=== PATIENT | female | born 1935 | race Caucasian/White ===

== ENCOUNTER → 2019-08-11 11:07 | Outpatient (CLI) | payer MEDICARE, SELFPAY ==
--- NOTE | 2019-08-11 12:44 | PM.TREADMILL ---
Cardiac Stress Test Report Referral & Results Date Patient Seen: 08/11/19 Requesting provider: Maritza Camp Indication: Chest discomfort Rest ECG: After both written and verbal informed consent the patient had an IV started by the diagnostic imaging RN, and then was hooked up to the treadmill monitoring system. The Lexiscan material, and then the Cardiolite tracer, were administered sequentially. An additional 3 min was spent monitoring the patient while supine on the gurney. The patient had a normal response to all infused materials. Procedure Note: Please see perfusion imaging report for details regarding possible ischemia Please note: Actual ECG tracings can be found in the PACS system.
--- NOTE | 2019-08-13 07:56 | DI.NM.S_ITS ---
DATE OF SERVICE: 08/11/2019 PROCEDURE: Pharmacological perfusion study. INDICATIONS: Chest pain with underlying hypertension, hyperlipidemia, left bundle branch block. RADIOPHARMACEUTICAL: 25.1 mCi technetium-99m Myoview IV was injected at stress and 25.0 mCi technetium-99m Myoview IV was injected at rest. CARDIAC STRESS: The patient underwent pharmacological perfusion study under the supervision of an attending staff. She remained hemodynamically stable. Baseline rhythm was sinus with left bundle branch block. Stress EKG did not reveal any obvious inducible ischemic changes or significant arrhythmias. RAW DATA: There was breast shadow seen. GATED STUDY: Stress LV ejection fraction 83% and resting LV ejection fraction 76% without any obvious wall motion abnormalities. Resting end-diastolic volume 70 mL. TID ratio 1.03, which is within normal. Lung/heart ratio 0.26, which is within normal limits. MYOCARDIAL PERFUSION: Stress supine and resting supine images were compared to each other. Please note this patient does not have any prone images. Resting study revealed a small-sized mildly-decreased perfusion of the distal anterior wall; however, stress supine images revealed normal myocardial perfusion. CONCLUSION: I will call this study a normal myocardial perfusion study without any convincing ischemia infarction pattern. The patient has underlying left bundle branch block. Overall, LV function is preserved. This is a low-risk myocardial perfusion study. Bettie Patel - GRABIEL/emilee/sujatha doc#: [id number]/job#: [id number] dd: 08/12/2019 17:32:00 dt: 08/13/2019 07:46:00 DICTATING MD/COPIES TO: Philip Salguero MD COPIES MNE: TI
== END ==
PROVIDERS: Family Provider Family Medicine; PCP Family Medicine; Visit Provider Physician Assistant Medical
DX: R07.89 Other chest pain (principal); I44.7 Left bundle-branch block, unspecified; I10 Essential (primary) hypertension; E78.5 Hyperlipidemia, unspecified
CPT/HCPCS: 78452; 93016; 93017; 93018; A9502; J2785

== ENCOUNTER → 2019-11-21 10:23 | Outpatient (CLI) | payer MEDICARE, SELFPAY | PROVIDERS: Family Provider Family Medicine; PCP Family Medicine; Visit Provider Physician Assistant | DX: N39.0 Urinary tract infection, site not specified (principal) | CPT/HCPCS: 87086 ==

== ENCOUNTER → 2020-01-04 10:06 | Outpatient (CLI) | payer MEDICARE, SELFPAY ==
[2020-01-04 12:22] LABS: TSH w/ Reflex to FT4 9.74 uIU/mL (0.47-4.68)
[2020-01-04 13:02] LABS: Free T4, Direct Thyroxine 0.98 ng/dL (0.78-2.19)
== END ==
PROVIDERS: Family Provider Family Medicine; PCP Family Medicine; Referring Provider Registered Nurse; Visit Provider Registered Nurse
DX: E03.9 Hypothyroidism, unspecified (principal)
CPT/HCPCS: 36415; 84439; 84443

== ENCOUNTER → 2020-04-05 11:19 | Outpatient (CLI) | payer MEDICARE, SELFPAY ==
[2020-04-05 13:32] LABS: Free T3, Triiodothyronine Free 3.07 pg/mL (2.77-5.27); Free T4, Direct Thyroxine 1.43 ng/dL (0.78-2.19)
[2020-04-05 13:45] LABS: Thyroid Stimulating Hormone 8.18 uIU/mL (0.47-4.68)
== END ==
PROVIDERS: Family Provider Family Medicine; PCP Family Medicine; Referring Provider Family Medicine; Visit Provider Family Medicine
DX: E03.9 Hypothyroidism, unspecified (principal)
CPT/HCPCS: 36415; 84439; 84443; 84481

== ENCOUNTER → 2020-06-01 09:30 | Outpatient (CLI) | payer MEDICARE, SELFPAY ==
[2020-06-02 06:07] LABS: COVID19 Sendout Not Detected (Not Detect)
== END ==
PROVIDERS: Family Provider Family Medicine; PCP Family Medicine; Visit Provider Physician Assistant
DX: Z11.59 Encounter for screening for other viral diseases (principal)
CPT/HCPCS: 87635

== ENCOUNTER → 2020-06-13 10:48 | Outpatient (CLI) | payer MEDICARE, SELFPAY ==
[2020-06-16 23:35] LABS: Almond IgE <0.10 kU/L (Class 0); Cashew Nut IgE <0.10 kU/L (Class 0); Codfish Allergy IgE < 0.10 kU/L (Class 0); Egg White IgE <0.10 kU/L (Class 0); Hazelnut IgE <0.10 kU/L (Class 0); Milk IgE <0.10 kU/L (Class 0); Peanut IgE <0.10 kU/L (Class 0); Salmon Allergy IgE < 0.10 kU/L (Class 0); Scallop Allergy IgE < 0.10 kU/L (Class 0); Sesame seed Allergy IgE < 0.10 kU/L (Class 0); Shrimp IgE <0.10 kU/L (Class 0); Soybean IgE <0.10 kU/L (Class 0); Tuna Allergy IgE < 0.10 kU/L (Class 0); Walnut IgE <0.10 kU/L (Class 0); Wheat Allergy IgE < 0.10 kU/L (Class 0)
== END ==
PROVIDERS: Family Provider Family Medicine; PCP Family Medicine; Referring Provider Family Medicine; Visit Provider Family Medicine
DX: G89.29 Other chronic pain (principal); L29.9 Pruritus, unspecified; M54.5 Low back pain
CPT/HCPCS: 36415; 86003

== ENCOUNTER 2020-06-20 12:13 | Emergency (ER) | payer MEDICARE, SELFPAY ==
[2020-06-20] VITALS (9 sets, daily range): BP systolic 161–203; BP diastolic 78–88; PULSE 60–67; RESP 8–33; TEMP 36.6; O2SAT 95–97; BMI 24.7
--- NOTE | 2020-06-20 12:24 | PC.NURSE ---
pt states my legs feel like stumps having numbness bilaterally in lower distal extremities. 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 AAOx3, on cardiac monitoring HR 60's. states she had a dream she was having CP on 06/14 and woke up with hypertensive with CP but did not call her PCP. has been taking her BP regularly and its been elevated. 203/88 in ED today, lungs clear. RT in room for EKG at this time. Anxious.
--- NOTE | 2020-06-20 12:59 | DI.RAD.S_ITS ---
PROCEDURE: XR CHEST 1V INDICATIONS: chest pain TECHNIQUE: One view of the chest was acquired. COMPARISON: None. FINDINGS: Surgical changes and devices: Lower thoracic spine vertebroplasty cement is seen. Lungs and pleura: Lungs are clear. No pleural effusions or pneumothorax. Mediastinum: The cardiac contours are within normal limits. The aorta demonstrates calcification and tortuosity. Bones and chest wall: Age-appropriate bony degenerative changes are seen. No suspicious bony lesions. Overlying soft tissues appear unremarkable. IMPRESSION: No acute cardiopulmonary process is seen. Dictated by: Dipak Rodriguez M.D. on 06/20/2020 at 12:32 Approved by: Dipak Rodriguez M.D. on 06/20/2020 at 12:33
--- NOTE | 2020-06-20 13:08 | ED_ITS ---
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 She states that she woke up with chest pain on 06/14/2020 after taking it now. She had injury that she had chest pain and then woke up with chest pain. She states it lasted for about 15 minutes, until she was able to ?drink some port.She states that drinking [place] is an old 's tail that she uses sometimes when she has chest pain. She states that she has had chest pain before. Then after drinking the poor she got up to go to the bathroom and felt very rigid and like her legs were ?like stumps.She initially states that she has no cardiac history, then admits to ?leaky valves? as well as hypertension. She states that the chest pain was substernal, felt like squeezing. She also takes supplements for potassium as well as magnesium. She states she has also had leg cramps, chart review illustrate the history of leg cramps for which she takes potassium. She describes ?tree trunk legs? as improving since this incident almost a week ago. She has not followed up with her primary care provider since. She denies any falls or trauma. She denies any current chest pain, has not had any since the , denies any shortness of breath fever nausea vomiting or diarrhea. She d oes admit to issues with chronic pain, states she has very severe chronic pain for which she sees her primary care provider. Related Data Home Medications Medication Instructions Recorded Confirmed True osteo PO 11/21/19 06/13/20 amlodipine 5 mg tablet 5 mg PO BID tab 11/21/19 06/13/20 atenolol 25 mg tablet 25 mg PO DAILY 11/21/19 06/13/20 phenazopyridine PO 11/21/19 06/13/20 true vision PO 11/21/19 06/13/20 aspirin 81 mg tablet,delayed 81 mg PO DAILY 12/15/19 06/13/20 release hydroxyzine HCl 25 mg tablet 25 mg PO BEDTIME 12/15/19 06/13/20 Prevegen PO 01/13/20 06/13/20 cholecalciferol (vitamin D3) 50 50 mcg PO DAILY 01/13/20 06/13/20 mcg (2,000 unit) capsule coenzyme Q10 200 mg capsule 200 mg PO BID cap 01/13/20 06/13/20 magnesium PO 01/13/20 06/13/20 vitamins A,C,[id number]-knwe-vjajnm 7,160 2 tab PO BID 01/13/20 06/13/20 unit-113 mg-100 unit tablet Previous Rx's Medication Instructions Recorded levothyroxine 100 mcg tablet 100 mcg PO DAILY #90 tab 04/09/20 clobetasol 0.05 % topical gel 1 applictn TOP DAILY #60 gram 06/13/20 potassium chloride 10 mEq 10 meq PO DAILY #90 tab 06/13/20 tablet,extended release Allergies Allergy/AdvReac Type Severity Reaction Status Date / Time latex [LATEX] Allergy Mild WELTS Verified 06/13/20 09:32 morphine [MORPHINE] Allergy Mild WELTS Verified 06/13/20 09:32 Sulfa (Sulfonamide Allergy Mild UNK Verified 06/13/20 09:32 Antibiotics) [SULFA (SULFONAMIDE ANTIBIOTICS)] alendronate sodium Allergy Unknown Verified 06/13/20 09:32 [From FOSAMAX] PCN Allergy Mild HIVES Uncoded 06/13/20 09:32 Review of Systems <ALMA Reza- - Last Filed: 06/20/20 15:59> Review of Systems Narrative: GENERAL: Denies chills, fatigue, malaise, fever, sweats. HEENT: Denies sinus pain, ear pain, sore throat, difficulty swallowing, dizzi ness. RESPIRATORY: Denies dyspnea, cough, wheezing, hemoptysis, sputum. CARDIOVASCULAR: See HPI GASTROINTESTINAL: Denies nausea, vomiting, abdominal pain, diarrhea, constipation, melena. : Denies dysuria, frequency, incontinence, hematuria, urinary retention. MUSCULOSKELETAL: See HPI SKIN: Denies rash, skin lesions, or other NEUROLOGIC: Denies weakness, headache, numbness, change in speech, confusion, seizures, incoordination. PSYCHIATRIC: No concerning psychosocial issues. 12 point review of systems is negative except for those stated above Patient History <HERIBERTO Reza - Last Filed: 06/20/20 15:59> Medical History Anxiety (Chronic) Aortic regurgitation (Chronic) Bilateral leg cramps (Acute) Cervical somatic dysfunction (Acute) Chicken pox (Resolved) Chronic back pain (Chronic) Colon polyps (Inactive ~1994) Cranial somatic dysfunction (Acute) Fractures (Resolved) Generalized pruritus (Acute) Hearing loss (Chronic) History of urinary incontinence (Chronic ~2015) Hypothyroidism (Chronic ~1982) Insomnia (Acute) Kyphosis (Chronic) Left elbow pain (Acute) Leg cramps (Acute) Low back pain (Acute) Macular degeneration (Chronic ~2000) Measles (Resolved) Mumps (Resolved) Osteoporosis (Chronic) Pelvic somatic dysfunction (Acute) Polio (Resolved ~1945) Pulmonary embolism (Chronic ~2004) Rib pain on left side (Acute) Rib pain on left side (Acute) Scoliosis (Resolved) Segmental and somatic dysfunction of abdomen and other regions (Acute) Segmental and somatic dysfunction of lumbar region (Acute) Segmental and somatic dysfunction of rib cage (Acute) Segmental and somatic dysfunction of sacral region (Acute) Segmental and somatic dysfunction of thoracic region (Acute) Stiff neck (Acute) Transient ischemic attack (Inactive ~1997) Upper extremity somatic dysfunction (Acute) UTI (urinary tract infection) (Acute) Vitiligo (Chronic ~1975) Surgical History Anesthesia (Resolved) History of bladder suspension procedure (Resolved ~1998) History of cataract removal with insertion of prosthetic lens (Resolved ~2014) History of elbow surgery (Resolved ~08/2015) History of hip replacement (Resolved ~2004) History of kyphoplasty (Resolved ~2002) History of surgery on right wrist (Resolved ~10/14/19) Family History Father Suicide Mental health problem Mother Pancreatitis Brother No problems noted. Brother No problems noted. Sister Mental health problem Grandmother Senility Social History Smoking Status: Never smoker Smoking Status: Never smoker alcohol intake frequency: 0-2 drinks per day Substance Use Type: does not use Exam <HERIBERTO Reza - Last Filed: 06/20/20 15:59> Narrative Exam Narrative: GENERAL: Elderly female lying on stretcher in no acute distress HEAD: Atraumatic. Normocephalic. No temporal or scalp tenderness. EYES: Pupils equal round and reactive. Extraocular motions intact. No scleral icterus. No injection or drainage. ENT: Nose without bleeding, purulent drainage or septal hematoma. Throat without erythema, tonsillar hypertrophy or exudate. Uvula midline. Airway patent. NECK: Trachea midline. No JVD or lymphadenopathy. Supple, nontender, no meningeal signs. CARDIOVASCULAR: Regular rate and rhythm RESPIRATORY: Clear to auscultation. Breath sounds equal bilaterally. No wheezes, rales, or rhonchi. No cough. No increased respiratory effort. No accessory muscle use. Speaking full sentences. GASTROINTESTINAL: Abdomen soft, non-tender, nondistended. No hepato-s plenomegaly, or palpable masses. No guarding. EXTREMITIES: No clubbing, cyanosis, or edema. No joint tenderness, effusion, or edema noted. Sensation is intact bilateral lower extremities, patient able to [employer] accurately identify when and where touched 12 times. Bilateral pedal pulses intact. BACK: Nontender without deformity or crepitance. No flank tenderness. NEURO: AOx3. SKIN: No rash or erythema on visible skin Initial Vital Signs Initial Vital Signs: Vital Signs Temperature 97.8 F 06/20/20 12:15 Pulse Rate 60 06/20/20 12:15 Respiratory Rate 19 06/20/20 12:15 Blood Pressure 203/88 H 06/20/20 12:15 Pulse Oximetry 97 06/20/20 12:15 <Madeline Morel DO - Last Filed: 06/21/20 10:23> Initial Vital Signs Initial Vital Signs: Vital Signs Temperature 97.8 F 06/20/20 12:15 Pulse Rate 60 06/20/20 12:15 Respiratory Rate 19 06/20/20 12:15 Blood Pressure 203/88 H 06/20/20 12:15 Pulse Oximetry 97 06/20/20 12:15 Course <Chrissy Rai, GLOBAL MANAGER-BC - Last Filed: 06/20/20 15:59> Orders Ordered: ED Orders 06/20/20 12:59 XR chest 1V Stat 06/20/20 13:25 Complete Blood Count AUTO DIFF Stat Comprehensive Metabolic Panel Stat Lipase Stat Magnesium Stat NT-proBNP (BNP-Adult 18+) Stat Partial Thromboplastin Time Stat Prothrombin Time INR Stat Troponin & CK Cardiac Panel Stat Vital Signs Vital signs: Vital Signs - 8 hr 06/20/20 12:15 06/20/20 12:28 06/20/20 12:30 Temperature 97.8 F Pulse Rate 60 62 61 Respiratory Rate 19 33 H 30 H Blood Pressure 203/88 H Pulse Oximetry 97 97 96 06/20/20 13:00 06/20/20 13:30 06/20/20 14:00 Temperature Pulse Rate 61 62 62 Respiratory Rate 22 14 8 L Blood Pressure Pulse Oximetry 96 96 95 06/20/20 14:05 06/20/20 14:30 06/20/20 14:31 Temperature Pulse Rate 62 67 65 Respiratory Rate 16 25 H 25 H Blood Pressure 183/84 H 161/78 H Pulse Oximetry 97 97 97 <Madeline Morel, - Last Filed: 06/21/20 10:23> Orders Ordered: ED Orders 06/20/20 12:59 XR chest 1V Stat 06/20/20 13:25 Complete Blood Count AUTO DIFF Stat Comprehensive Metabolic Panel Stat Lipase Stat Magnesium Stat NT-proBNP (BNP-Adult 18+) Stat Partial Thromboplastin Time Stat Prothrombin Time INR Stat Troponin & CK Cardiac Panel Stat Vital Signs Vital signs: Vital Signs - 8 hr 06/20/20 12:15 06/20/20 12:28 06/20/20 12:30 Temperature 97.8 F Pulse Rate 60 62 61 Respiratory Rate 19 33 H 30 H Blood Pressure 203/88 H Pulse Oximetry 97 97 96 06/20/20 13:00 06/20/20 13:30 06/20/20 14:00 Temperature Pulse Rate 61 62 62 Respiratory Rate 22 14 8 L Blood Pressure Pulse Oximetry 96 96 95 06/20/20 14:05 06/20/20 14:30 06/20/20 14:31 Temperature Pulse Rate 62 67 65 Respiratory Rate 16 25 H 25 H Blood Pressure 183/84 H 161/78 H Pulse Oximetry 97 97 97 MDM - Extremity (Nontraumatic) <Chrissy Rai, GLOBAL MANAGER-BC - Last Filed: 06/20/20 15:59> Lab Data Result diagrams: 06/20/20 13:25 06/20/20 13:25 Labs: Lab Results 06/20/20 06/20/20 06/20/20 Range/Units 13:25 13:25 13:25 WBC 7.7 (4.5-11.0) X10^3/uL RBC 4.56 (4.0-5.2) X10^6/uL Hgb 14.8 (12.0-16.0) g/dL Hct 43.2 (36-46) % MCV 94.7 (80-100) fL MCH 32.4 (26-34) PG MCHC 34.2 (30-36) % RDW 13.7 (11.6-14.8) % Plt Count 172 (150-400) X10^3/uL Neut % (Auto) 57.6 (50-75) % Lymph % (Auto) 31.3 (25-40) % [place] % (Auto) 7.4 (3-14) % Eos % (Auto) 2.8 (2-4) % Baso % (Auto) 0.9 (0-2) % Neut # (Auto) 4400 (9456-5076) /uL Lymph # (Auto) 2400 (5375-3384) /uL [place] # (Auto) 600 (0-900) /uL Eos # (Auto) 200 (0-450) /uL Baso # (Auto) 100 (0-100) /uL PT 11.5 (10.1-12.7) SECONDS INR 1.0 (0.9-1.3) APTT 32 (26.4-36.2) SECONDS Sodium 140 (137-145) mmol/L Potassium 4.0 (3.4-5.1) mmol/L Chloride 105 (98-107) mmol/L Carbon Dioxide 30 (22-32) mmol/L BUN 19 H (7-17) mg/dL Creatinine 0.72 (0.52-1.04) mg/dL Estimated GFR > 60.0 (>60) mL/min BUN/Creatinine Ratio 26.4 H (6-22) Glucose 94 (80-110) mg/dL Calcium 11.1 H (8.4-10.2) mg/dL Magnesium 2.2 (1.6-2.3) mg/dL Total Bilirubin 0.5 (0.2-1.3) mg/dL AST 38 H (14-36) IU/L ALT 33 (<35) IU/L Alkaline Phosphatase 91 (38-126) U/L Total Creatine Kinase < 20 L (30-135) U/L CK-MB (CK-2) TNP CK-MB (CK-2) Rel Index TNP Troponin I < 0.012 (0.01-0.034) ng/mL NT-Pro-B Natriuret Pep 300 (<450) pg/mL Total Protein 7.8 (6.3-8.2) g/dL Albumin 4.5 (3.5-5.0) g/dL Globulin 3.3 (1.7-4.1) g/dL Albumin/Globulin Ratio 1.4 (1.0-2.8) Lipase 121 (23-300) U/L Imaging Data Chest x-ray: Radiologist's Impression: [address] [place] [address] XRay Report Signed Patient: Bettie Patel BMR#: [id number] : 5Acct:[id number] Age/Sex: 84 / FDate of Service: 06/20/20 Loc: ED Accession Number: [id number] Procedure: XR chest 1V Ordering Provider: Chrissy Rai [facility]- PROCEDURE: XR CHEST 1V INDICATIONS: chest pain TECHNIQUE: One view of the chest was acquired. COMPARISON: None. FINDINGS: Surgical changes and devices: Lower thoracic spine vertebroplasty cement is seen. Lungs and pleura: Lungs are clear. No pleural effusions or pneumothorax. Mediastinum: The cardiac contours are within normal limits. The aorta demonstrates calcification and tortuosity. Bones and chest wall: Age-appropriate bony degenerative changes are seen. No suspicious bony lesions. Overlying soft tissues appear unremarkable. IMPRESSION: No acute cardiopulmonary process is seen. Dictated by: Dipak Rodriguez M.D. on 06/20/2020 at 12:32 Approved by: Dipak Rodriguez M.D. on 06/20/2020 at 12:33 ECG Data Attestation EKG: I personally reviewed and interpreted this ECG as follows: Interpretation: Sinus rhythm. Ventricular rate 62. P.r. interval 178. QRS 144. No ectopy noted. viewed by Dr Morel MDM Narrative Medical decision making narrative: The patient is an 84-year-old female who pre sents with a chief complaint of her legs feeling like stumps for the past week as well as an episode of chest pain a week ago. Her troponin is negative, checks rib x-ray with no acute findings, lab work and electrolytes grossly within normal limits other than a slightly high calcium. The patient also brought up increased skin wrinkling for the past 6 months on discharge and I encouraged her to use Eucerin or Aquaphor cream to help keep her skin hydrated. She is drinking a lot of ice tea, states that she is not drinking lot of water. I did not do a 2nd troponin on this patient as she has had chest pain for 1 episode of 15 minutes a week ago. She does admit to feeling better throughout her stay in the emergency department, and I encouraged to follow up with primary care provider in the next 48-72 hours. She describes numbness in bilateral lower limbs, but is very clearly not numb on exam. I suspect that this is her post-polio syndrome, and wonder if port drinking is having an impact on her. I did discuss that if she has chest pain, she should not wait a week to be seen, and come back to emergency department for any acute concerns such as chest pain, shortness of breath etcetera. Patient has no questions or concerns upon discharge and states understanding return precautions as well as follow-up care. <Madeline Morel, DO - Last Filed: 06/21/20 10:23> Lab Data Labs: Lab Results 06/20/20 06/20/20 06/20/20 Range/Units 13:25 13:25 13:25 WBC 7.7 (4.5-11.0) X10^3/uL RBC 4.56 (4.0-5.2) X10^6/uL Hgb 14.8 (12.0-16.0) g/dL Hct 43.2 (36-46) % MCV 94.7 (80-100) fL MCH 32.4 (26-34) PG MCHC 34.2 (30-36) % RDW 13.7 (11.6-14.8) % Plt Count 172 (150-400) X10^3/uL Neut % (Auto) 57.6 (50-75) % Lymph % (Auto) 31.3 (25-40) % [place] % (Auto) 7.4 (3-14) % Eos % (Auto) 2.8 (2-4) % Baso % (Auto) 0.9 (0-2) % Neut # (Auto) 4400 (1100-1359) /uL Lymph # (Auto) 2400 (0447-4538) /uL [place] # (Auto) 600 (0-900) /uL Eos # (Auto) 200 (0-450) /uL Baso # (Auto) 100 (0-100) /uL PT 11.5 (10.1-12.7) SECONDS INR 1.0 (0.9-1.3) APTT 32 (26.4-36.2) SECONDS Sodium 140 (137-145) mmol/L Potassium 4.0 (3.4-5.1) mmol/L Chloride 105 (98-107) mmol/L Carbon Dioxide 30 (22-32) mmol/L BUN 19 H (7-17) mg/dL Creatinine 0.72 (0.52-1.04) mg/dL Estimated GFR > 60.0 (>60) mL/min BUN/Creatinine Ratio 26.4 H (6-22) Glucose 94 (80-110) mg/dL Calcium 11.1 H (8.4-10.2) mg/dL Magnesium 2.2 (1.6-2.3) mg/dL Total Bilirubin 0.5 (0.2-1.3) mg/dL AST 38 H (14-36) IU/L ALT 33 (<35) IU/L Alkaline Phosphatase 91 (38-126) U/L Total Creatine Kinase < 20 L (30-135) U/L CK-MB (CK-2) TNP CK-MB (CK-2) Rel Index TNP Troponin I < 0.012 (0.01-0.034) ng/mL NT-Pro-B Natriuret Pep 300 (<450) pg/mL Total Protein 7.8 (6.3-8.2) g/dL Albumin 4.5 (3.5-5.0) g/dL Globulin 3.3 (1.7-4.1) g/dL Albumin/Globulin Ratio 1.4 (1.0-2.8) Lipase 121 (23-300) U/L Discharge Plan Departure Patient Disposition: Home Clinical Impression: Chest pain Qualifiers: Chest pain type: unspecified Qualified Code(s): R07.9 - Chest pain, unspecified Chronic leg pain Qualifiers: Laterality: bilateral Qualified Code(s): M79.604 - Pain in right leg Discharge Date/Time: 06/20/20 15:04 Instructions: DI for Atypical Chest Pain, DI for Chest Pain, DI for Numbness /Tingling Activity Restrictions/Additional Instructions: Thank you for trusting us with your care today. As discussed, your labs and evaluation came back very well. Your sodium, potassium, and magnesium came back well. Your calcium came back slightly high, this could be a sign of dehydration. Please focus on drinking more water than iced tea and staying hydrated. I would like you to follow-up with primary care provider in the next 48-72 hours. In the meantime please come back to the emergency department for any acute concerns such as concern of heart attack or stroke, Prescriptions: No Action amlodipine 5 mg tablet 5 mg PO BID RF: 0 atenolol 25 mg tablet 25 mg PO DAILY RF: 0 phenazopyridine PO RF: 0 True osteo PO RF: 0 true vision PO RF: 0 coenzyme Q10 [Co Q-10] 200 mg capsule 200 mg PO BID RF: 0 levothyroxine 100 mcg tablet 100 mcg PO DAILY Qty: 90 RF: 1 aspirin [Adult Aspirin Regimen] 81 mg tablet,delayed release (DR/EC) 81 mg PO DAILY RF: 0 hydroxyzine HCl 25 mg tablet 25 mg PO BEDTIME RF: 0 PreserVision AREDS [id number] tablet 2 tab PO BID RF: 0 Prevegen PO RF: 0 cholecalciferol (vitamin D3) 50 mcg (2,000 unit) capsule 50 mcg PO DAILY RF: 0 magnesium PO RF: 0 clobetasol 0.05 % gel 1 applictn TOP DAILY Qty: 60 RF: 2 potassium chloride 10 mEq tablet extended release 10 meq PO DAILY Qty: 90 RF: 3 Referrals: Van Christensen DO [Primary Care Provider] - <Madeline Morel DO - Last Filed: 06/21/20 10:23> Cosign ED Attending Cosignature Attestation: I was immediately available in the department for consultation. Documentation has been reviewed. I agree with assessment and plan.
[2020-06-20 13:34] LABS: Add Manual Diff / Slide Review NO; Basophils Absolute Auto 100 /uL (0-100); Basophils Percent Auto 0.9 % (0-2); Eosinophils Absolute Auto 200 /uL (0-450); Eosinophils Percent Auto 2.8 % (2-4); Hematocrit 43.2 % (36-46); Hemoglobin 14.8 g/dL (12.0-16.0); Lymphocytes Absolute Auto 2400 /uL (1100-4500); Lymphocytes Percent Auto 31.3 % (25-40); Mean Corpuscular HGB Conc 34.2 % (30-36); Mean Corpuscular Hemoglobin 32.4 PG (26-34); Mean Corpuscular Volume 94.7 fL (80-100); Monocytes Absolute Auto 600 /uL (0-900); Monocytes Percent Auto 7.4 % (3-14); Neutrophils Absolute Auto 4400 /uL (1500-7000); Neutrophils Percent Auto 57.6 % (50-75); Platelet Count 172 X10^3/uL (150-400); Red Blood Cell Count 4.56 X10^6/uL (4.0-5.2); Red Cell Distribution Width 13.7 % (11.6-14.8); White Blood Cell Count 7.7 X10^3/uL (4.5-11.0)
[2020-06-20 13:42] LABS: Prothrombin Time 11.5 SECONDS (10.1-12.7)
[2020-06-20 13:44] LABS: PTT Partial Thromboplastin Tim 32 SECONDS (26.4-36.2)
[2020-06-20 13:45] LABS: Alanine Aminotransferase 33 IU/L (<35); Albumin 4.5 g/dL (3.5-5.0); Albumin Globulin Ratio 1.4 (1.0-2.8); Alkaline Phosphatase 91 U/L (38-126); Aspartate Aminotransferase 38 IU/L (14-36); BUN Creatinine Ratio 26.4 (6-22); Bilirubin Total 0.5 mg/dL (0.2-1.3); Blood Urea Nitrogen 19 mg/dL (7-17); Calcium 11.1 mg/dL (8.4-10.2); Carbon Dioxide 30 mmol/L (22-32); Chloride 105 mmol/L (98-107); Creatine Kinase < 20 U/L (30-135); Estimated Glomerular Filt Rate > 60.0 mL/min (>60); Globulin 3.3 g/dL (1.7-4.1); Glucose 94 mg/dL (80-110); HEMOLYSIS < 15 (0-50); Lipase 121 U/L (23-300); Magnesium 2.2 mg/dL (1.6-2.3); Sodium 140 mmol/L (137-145); Total Protein 7.8 g/dL (6.3-8.2)
[2020-06-20 13:57] LABS: NT-proBNP (BNP-Adult 18+) 300 pg/mL (<450); Troponin I < 0.012 ng/mL (0.01-0.034)
== END 2020-06-20 15:04 | disposition home or self-care (01) ==
PROVIDERS: Emergency Provider Nurse Practitioner Family; Family Provider Family Medicine; PCP Family Medicine
DX: R07.9 Chest pain, unspecified (principal); M79.604 Pain in right leg; I10 Essential (primary) hypertension
CPT/HCPCS: 36415; 71045; 80053; 82550; 83690; 83735; 83880; 84484; 85025; 85610; 85730; 93005; 93041; 99284

== ENCOUNTER → 2020-07-11 09:46 | Outpatient (CLI) | payer MEDICARE, SELFPAY ==
--- NOTE | 2020-07-11 09:49 | DI.MRI.S_ITS ---
PROCEDURE: MR LUMBAR SPINE WO CON INDICATIONS: worsening sciatica/radiculopathy TECHNIQUE: Noncontrast sagittal T1 spin echo and T2 fast echo, sagittal STIR, axial T1 and T2 fast spin echo through the lumbar spine. In cases with scoliosis, additional coronal T2 fast spin echo may be performed. COMPARISON: [facility], MR, L-SPINE WITHOUT CONTRAST, 01/28/2016, 10:01. [facility] Outside Film, MR, MR LUMBAR SPINE WITHOUT CONTRAST, 12/02/2018, 10:52 (Images only, no report. Also, no axial images from the prior outside study are available for review at the time of this dictation.) FINDINGS: Image quality: Excellent. Alignment and Curvature: There is minimal retrolisthesis seen at L1-L2 and L3-L4. Bone Marrow: Marrow is of normal overall signal. No acute vertebral body compression fractures. A prominent anterior wedge deformity is seen at the T11 level, with 80-90% loss of height anteriorly. There is mild posterior displacement of fracture fragments of 3 mm. There is approximately 50% loss of height centrally at the L3 level. 3 mm posterior displacement of fracture fragments can be seen. These fractures are not significantly changed compared to the outside prior MRI examination. Spinal Cord: Conus medullaris terminates at the L1 level. Visualized cord demonstrates normal signal and size. Paraspinous Soft Tissues: No paravertebral masses. An apparent moderate hiatal hernia can be seen. T10-T11: Mild loss of disc height is seen. Loss of disc signal is seen. Mild to moderate disc bulge is seen. Moderate bilateral neural foraminal narrowing is seen. Moderate central canal narrowing is seen. There is associated mass effect upon the ventral spinal cord. T11-T12: Kvxl-hk-heyvhmlb loss of disc height and disc signal can be seen. Mild generalized disc bulge is seen. No significant neural foraminal or central canal narrowing can be seen. T12-L1: Wxje-bq-ziipvjbi loss of disc height and disc signal can be seen. Mild to moderate disc bulge is seen, with a mild central disc protrusion. No significant neural foraminal narrowing is seen. Mild central canal narrowing is seen. L1-L2: The disc height is well-preserved. Loss of disc signal is seen at this level. Moderate loss of disc height is seen. Loss of disc signal is seen. Mild to moderate facet hypertrophy is seen. Associated hypertrophy of the ligamentum flavum can be seen. There is at least moderate left-sided and moderate to severe right-sided neural foraminal narrowing seen. At least moderate central canal narrowing is seen. L2-L3: The disc height is well-preserved. Loss of disc signal is seen at this level. Mild to moderate disc bulge is seen. Mild facet joint hypertrophy is seen. Associated hypertrophy of the ligamentum flavum can be seen. There is hivt-xg-kyqehquc right-sided and mild left-sided neural foraminal narrowing seen. Moderate central canal narrowing is seen. L3-L4: The disc height is well-preserved. Loss of disc signal is seen at this level. Mild to moderate disc bulge is seen. Moderate facet joint hypertrophy is seen. Associated hypertrophy of the ligamentum flavum can be seen. There is moderate right-sided and dvnk-qv-anegdfnp left-sided neural foraminal narrowing seen. Moderate central canal narrowing is seen. L4-L5: Moderate loss of disc height is seen. Loss of disc signal is seen. Mild disc bulge is seen, with a mild central disc protrusion. Mild to moderate facet hypertrophy is seen. There is mild right-sided and no significant left-sided neural foraminal narrowing seen. Minimal central canal narrowing is seen. L5-S1: The disc height is relatively well preserved. Loss of disc signal can be seen. Mild generalized disc bulge is seen. Moderate facet joint hypertrophy is seen. No neural foraminal narrowing is seen. No central canal narrowing is seen. 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 IMPRESSION: Stable T11 and L3 compression deformities. Multiple levels of degenerative change are seen, which are believed to be similar to the prior outside MRI. 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 on 07/11/2020 at 14:11 Approved by: Dipak Rodriguez M.D. on 07/11/2020 at 14:20
== END ==
PROVIDERS: Family Provider Family Medicine; PCP Family Medicine; Referring Provider Family Medicine; Visit Provider Family Medicine
DX: M47.26 Other spondylosis with radiculopathy, lumbar region (principal)
CPT/HCPCS: 72148

== ENCOUNTER 2020-10-19 09:54 | Emergency (ER) | payer MEDICARE, SELFPAY ==
[2020-10-19] VITALS (9 sets, daily range): BP systolic 152–168; BP diastolic 66–74; PULSE 63–71; RESP 19–28; TEMP 35.7; O2SAT 94–100
--- NOTE | 2020-10-19 10:01 | DI.RAD.S_ITS ---
PROCEDURE: XR ACUTE ABDOMEN SERIES INDICATIONS: severe upper chest and back pain TECHNIQUE: One view chest and two views of the abdomen were acquired. COMPARISON: None. FINDINGS: Surgical changes and devices: None. Chest: Lungs are clear. Heart size is normal. No pleural effusions. No pneumoperitoneum. Abdomen: Bowel gas pattern is nonobstructive. Scattered material noted predominantly in the region of the descending colon and rectum. No suspicious calcifications. Visualized solid organ contours appear normal. Bones: No suspicious bony lesions. Status post bilateral total hip arthroplasties. Status post left elbow arthroplasty. Findings compatible with previous vertebroplasty of the lower thoracic spine. IMPRESSION: 1. Nonobstructive bowel gas pattern. Moderate fecal material noted predominantly in the region of the descending colon and rectum. 2. No acute cardiopulmonary abnormalities. Dictated by: Dru Chase M.D. on 10/19/2020 at 10:30 Approved by: Dru Chase M.D. on 10/19/2020 at 10:33
--- NOTE | 2020-10-19 10:02 | ED.ABDPAIN ---
HPI - Abdominal Pain General Chief Complaint: Abdominal Pain Stated Complaint: abd pain Time Seen by Provider: 10/19/20 09:55 Source: patient Mode of arrival: Ambulatory History of Present Illness HPI narrative: 84-year-old nonsmoker with history of hypertension and pulmonary embolism as well as aortic regurgitation presents with a chief complaint of 3 days of gradually worsening upper back and upper abdominal and chest pain. She states that it wraps around her chest and is significantly worsened by any movement and improves with rest. She denies any exertional component and states her appetite is decreased but does not seem to affect her discomfort when she eats or drinks. She has been nauseated for 3 weeks but denies any vomiting. She denies any change in her bowel habits such as constipation or diarrhea. She denies any recent injury. She is not dizzy, weak or lightheaded. She has had no fever or chills. She denies any cough. She had been managing her discomfort with Motrin but now the pain is significant the bad that it does not help. MD complaint: abdominal pain Onset (ago): day(s) Pain Consistency: intermittent Location: epigastric and bilateral flank Severity: severe Severity scale (1-10): 10 Quality: stabbing and aching Radiation: bilateral flank, back and chest Migration to: no migration Relieving factors: rest Exacerbating factors: movement Associated symptoms: nausea Treatments prior to arrival: NSAIDs Related Data Home Medications Medication Instructions Recorded Confirmed True osteo PO 11/21/19 08/27/20 amlodipine 5 mg tablet 5 mg PO BID tab 11/21/19 08/27/20 atenolol 25 mg tablet 25 mg PO DAILY 11/21/19 08/27/20 phenazopyridine PO 11/21/19 08/27/20 true vision PO 11/21/19 08/27/20 aspirin 81 mg tablet,delayed 81 mg PO DAILY 12/15/19 08/27/20 release Prevegen PO 01/13/20 08/27/20 cholecalciferol (vitamin D3) 50 50 mcg PO DAILY 01/13/20 08/27/20 mcg (2,000 unit) capsule coenzyme Q10 200 mg capsule 200 mg PO BID cap 01/13/20 08/27/20 magnesium PO 01/13/20 08/27/20 vitamins A,C,E-bmes-exkjmo 7,160 2 tab PO BID 01/13/20 08/27/20 unit-113 mg-100 unit tablet Previous Rx's Medication Instructions Recorded clobetasol 0.05 % topical gel 1 applictn TOP DAILY #60 gram 06/13/20 potassium chloride 10 mEq 10 meq PO DAILY #90 tab 06/13/20 tablet,extended release hydroxyzine pamoate 25 mg capsule See Rx Instructions .ROUTE 09/12/20 .COMPLEX #90 capsule levothyroxine 100 mcg tablet 100 mcg PO DAILY #90 tab 10/12/20 lidocaine [Lidoderm] 1 patch TOP DAILY #15 each 10/19/20 ondansetron 4 mg PO TID-QID PRN #10 tab 10/19/20 Allergies Allergy/AdvReac Type Severity Reaction Status Date / Time latex [LATEX] Allergy Mild WELTS Verified 08/27/20 09:37 morphine [MORPHINE] Allergy Mild WELTS Verified 08/27/20 09:37 Sulfa (Sulfonamide Allergy Mild UNK Verified 08/27/20 09:37 Antibiotics) [SULFA (SULFONAMIDE ANTIBIOTICS)] alendronate sodium Allergy Unknown Verified 08/27/20 09:37 [From FOSAMAX] PCN Allergy Mild HIVES Uncoded 08/27/20 09:37 Review of Systems Constitutional Constitutional: Denies chills, Denies fatigue, Denies fever(s), Denies frequent falls, Denies lethargy and Denies weakness Eyes Eyes: Denies change in vision, Denies eye discharge, Denies irritation and Denies loss of vision ENT Ears, Nose, Mouth, and Throat: Denies change in voice, Denies dizziness, Denies neck pain, Denies sore throat and Denies throat swelling Cardiovascular Cardiovascular: Reports chest pain, Denies irregular heart rhythm, Denies lightheadedness, Denies palpitations, Denies dyspnea, Denies dyspnea on exertion and Denies orthopnea Respiratory Respiratory: Denies cough, Denies dyspnea, Denies dyspnea on exertion and Denies wheezing Gastrointestinal Gastrointestinal: Denies abdominal pain, Denies change in bowel habits, Denies diarrhea, Denies nausea and Denies vomiting Musculoskeletal Musculoskeletal: Reports back pain, Denies neck pain and Denies numbness Integumentary/Breasts Skin/Breast: Denies pruritus, Denies erythema, Denies rash and Denies wounds Neurologic Neurologic: Denies behavioral changes, Denies confusion, Denies dizziness, Denies frequent falls, Denies loss of vision, Denies numbness and Denies weakness Psychiatric Psychiatric: Denies anxiety, Denies behavioral changes, Denies confusion, Denies depression, Denies homicidal ideation and Denies suicidal ideation Endocrine Endocrine: Denies fatigue, Denies flushing and Denies palpitations Hematologic/Lymphatic Hematologic/Lymphatic: Denies easy bruising Allergic/Immunologic Allergic/Immunologic: Denies urticaria, Denies throat swelling and Denies wheezing Patient History Medical History Anxiety Aortic regurgitation Bilateral leg cramps Cervical somatic dysfunction Chicken pox Chronic back pain Colon polyps (~1994) Cranial somatic dysfunction Fractures Generalized pruritus Hearing loss History of urinary incontinence (~2015) Hypothyroidism (~1982) Insomnia Kyphosis Left elbow pain Leg cramps Low back pain Low back pain with bilateral sciatica Macular degeneration (~2000) Measles Mumps Osteoporosis Pelvic somatic dysfunction Polio (~1945) Pulmonary embolism (~2004) Rib pain on left side Rib pain on left side Scoliosis Segmental and somatic dysfunction of abdomen and other regions Segmental and somatic dysfunction of lumbar region Segmental and somatic dysfunction of rib cage Segmental and somatic dysfunction of sacral region Segmental and somatic dysfunction of thoracic region Stiff neck Transient ischemic attack (~1997) Upper extremity somatic dysfunction UTI (urinary tract infection) Vitiligo (~1975) Surgical History Anesthesia History of bladder suspension procedure (~1998) History of cataract removal with insertion of prosthetic lens (~2014) History of elbow surgery (~08/2015) History of hip replacement (~2004) History of kyphoplasty (~2002) History of surgery on right wrist (~10/14/19) Family History Father Suicide Mental health problem Mother Pancreatitis Brother No problems noted. Brother No problems noted. Sister Mental health problem Grandmother Senility Social History Smoking Status: Never smoker Smoking Status: Never smoker alcohol intake frequency: 0-2 drinks per day Alcohol type: wine Substance Use Type: does not use Exam Narrative Exam Narrative: GENERAL: [84] year old patient appears stated age. Well-nourished, well-developed patient, in mild distress. HEAD: Atraumatic. Normocephalic. EYES: Pupils equal round and reactive. Extraocular motions intact. No scleral icterus. No injection or drainage. ENT: Nose without bleeding, purulent drainage. Throat without erythema, tonsillar hypertrophy or exudate. Airway patent. NECK: Trachea midline. Non tender CARDIOVASCULAR: Regular rate and rhythm without murmurs, gallops, or rubs. RESPIRATORY: Clear to auscultation. Breath sounds equal bilaterally. No wheezes, rales, or rhonchi. GASTROINTESTINAL: Abdomen soft, non-tender, nondistended. EXTREMITIES: No edema or joint tenderness. BACK: Nontender without deformity or crepitance. No flank tenderness. NEURO: AOx3. SKIN: No rash or erythema of visible areas Initial Vital Signs Initial Vital Signs: Vital Signs Temperature 96.2 F L 10/19/20 09:57 Pulse Rate 65 10/19/20 09:57 Respiratory Rate 20 10/19/20 09:57 Blood Pressure 168/74 H 10/19/20 09:57 Pulse Oximetry 98 10/19/20 09:57 Course Orders Ordered: ED Orders 10/19/20 11:04 CT angio chest abdomen Stat Discontinued Medications Sodium Chloride (Normal Saline 0.9%) 1,000 mls @ 150 mls/hr IV CONT TATA Last Infusion: 10/19/20 13:12 Dose: 0 mls/hr Documented by: Admin: 10/19/20 10:23 Dose: 150 mls/hr Documented by: IRENE Lidocaine (Lidocaine Patch 1 Each Adh..Patch) 1 each TOP NOW ONE Stop: 10/19/20 13:04 Last Admin: 10/19/20 13:08 Dose: 1 each Documented by: ZACH Ondansetron HCl (Ondansetron 4 Mg Odt Prepack) 1 bottle MISC SEEINSTR ONE Stop: 10/19/20 12:51 Last Admin: 10/19/20 13:08 Dose: 1 bottle Documented by: ZACH Vital Signs Vital signs: Vital Signs - 8 hr 10/19/20 12:00 10/19/20 12:37 10/19/20 13:00 Pulse Rate 68 68 65 Respiratory Rate 19 25 H 28 H Pulse Oximetry 94 100 98 MDM - Abdominal Pain Lab Data Result diagrams: 10/19/20 10:00 10/19/20 10:00 Labs: Lab Results 10/19/20 10/19/20 Range/Units 10:00 10:00 WBC 8.2 (4.5-11.0) X10^3/uL RBC 4.30 (4.0-5.2) X10^6/uL Hgb 13.7 (12.0-16.0) g/dL Hct 40.0 (36-46) % MCV 92.8 (80-100) fL MCH 31.8 (26-34) PG MCHC 34.3 (30-36) % RDW 13.7 (11.6-14.8) % Plt Count 190 (150-400) X10^3/uL Neut % (Auto) 45.6 L (50-75) % Lymph % (Auto) 43.9 H (25-40) % [place] % (Auto) 8.1 (3-14) % Eos % (Auto) 1.8 L (2-4) % Baso % (Auto) 0.6 (0-2) % Neut # (Auto) 3800 (8471-8139) /uL Lymph # (Auto) 3600 (1774-6187) /uL [place] # (Auto) 700 (0-900) /uL Eos # (Auto) 200 (0-450) /uL Baso # (Auto) 0 (0-100) /uL Sodium 139 (137-145) mmol/L Potassium 4.2 (3.4-5.1) mmol/L Chloride 106 (98-107) mmol/L Carbon Dioxide 29 (22-32) mmol/L BUN 23 H (7-17) mg/dL Creatinine 0.67 (0.52-1.04) mg/dL Estimated GFR > 60.0 (>60) mL/min BUN/Creatinine Ratio 34.3 H (6-22) Glucose 100 (80-110) mg/dL Calcium 10.9 H (8.4-10.2) mg/dL Total Bilirubin 0.3 (0.2-1.3) mg/dL AST 34 (14-36) IU/L ALT 28 (<35) IU/L Alkaline Phosphatase 89 (38-126) U/L Total Creatine Kinase < 20 L (30-135) U/L CK-MB (CK-2) TNP CK-MB (CK-2) Rel Index TNP Troponin I < 0.012 (0.01-0.034) ng/mL Total Protein 7.3 (6.3-8.2) g/dL Albumin 4.2 (3.5-5.0) g/dL Globulin 3.1 (1.7-4.1) g/dL Albumin/Globulin Ratio 1.4 (1.0-2.8) Lipase 135 (23-300) U/L Point of care testing: Urine Dip Bedside Urine Glucose Negative Bedside Urine Bilirubin - Negative Bedside Urine Ketone - Negative Urine Specific [place] 1.010 Bedside Urine Occult Blood - Negative Bedside Urine pH 7.5 Bedside Urine Protein - Negative Bedside Urine Nitrite - Negative Bedside Urine Leukocytes - Negative Esterase Imaging Data CT scan - chest: Radiologist's Impression: 9 Rashad Ca DO Find Patient Imaging - Bettie Patel 84 F 1935 ACTIVITY DATE EXAM STATUS AUTHOR 10/19/20 11:04 Signed Dru Chase 10/19/20 10:01 Signed Dru Chase [address] [id number] Scan ReportSigned Patient: Bettie Patel BMR#: [id number]: 5Acct:[id number]/Sex: 84 / FDate of Service: 10/19/20Loc: EDAccession Number: [id number] Procedure: CT angio chest abdomen Ordering Provider: Rashad Ca D.O. PROCEDURE: CT ANGIO CHEST ABDOMEN INDICATIONS: severe chest and back pain, abdominal pain TECHNIQUE: Precontrast 5 mm thick sections acquired from the lung apices to the iliac crests. After the administration of intravenous contrast, 2.5 mm thick sections again acquired from the lung apices to the iliac crests. 10 mm maximum intensity projection (MIP) oblique sagittal and coronal reformats were then acquired. For radiation dose reduction, the following was used: automated exposure control. COMPARISON: [facility], MR, MR LUMBAR SPINE WO CON, 07/11/2020, 9:57. [facility], CR, XR ACUTE ABDOMEN SERIES, 10/19/2020, 10:03. FINDINGS: Image quality: Excellent. AORTA: No evidence for aortic dissection or aneurysmal dilatation of the thoracic or abdominal aorta. Scattered atherosclerotic calcifications throughout. CHEST: Lungs and pleura: No acute airspace opacities. 3 mm peripheral right upper lobe nodule seen on image 55, series 6. No pleural effusions or pneumothorax. Central and peripheral airways are patent and normal in caliber. Mediastinum: Heart size is normal. No pericardial effusion. Minimal scattered atherosclerotic calcifications of the coronary arteries are noted. No mediastinal or hilar adenopathy by size criteria. Central pulmonary arteries are normal in size. No evidence for acute pulmonary emboli. Esophagus is normal in caliber. Large hiatal hernia is noted. Bones and chest wall: No axillary adenopathy by size criteria. Thyroid gland is unremarkable. No suspicious bony lesions. No acute vertebral body compression fractures. Redemonstration of severe anterior compression fracture of T11 status post vertebroplasty. Unchanged appearance of retropulsion of the posterior, superior endplate of T11 with associated mild spinal canal stenosis. Accounting for differences in technique, this is not significantly changed. ABDOMEN: Vasculature: Celiac trunk and mesenteric arteries are patent. Renal arteries are also patent. Solid organs: Liver is normal in size and enhancement. Gallbladder is unremarkable. Biliary system is non dilated. Pancreas enhances normally. Spleen is normal in size and enhancement. No adrenal nodules. Both kidneys are normal in size and enhancement, without hydronephrosis. Small left renal cysts are again noted. Peritoneum and bowel: No free fluid or air. Bowel loops are normal in caliber and wall thickness. Nodes and vessels: No retroperitoneal or mesenteric adenopathy by size criteria. Inferior vena cava is normal in morphology. Bones: No suspicious bony lesions. No acute vertebral body compression fractures of the lumbar spine. Miscellaneous: No ventral hernias. IMPRESSION: 1. CT angiogram of the chest and abdomen without evidence for aneurysmal dilatation of the aorta. No evidence for aortic dissection. 2. Large hiatal hernia. 3. No acute cardiopulmonary abnormalities. 4. 3 mm right upper lobe pulmonary nodule. Consider follow-up CT in 12 months. 5. Atherosclerotic vascular disease. 6. Stable appearance of severe compression fracture of the T11 vertebral body status post vertebroplasty. Stable retropulsion of the posterior fragment involving the superior endplate of T11 resulting in mild spinal canal stenosis. Otherwise, no acute compression fractures of the imaged spine. Dictated by: Dru Chase M.D. on 10/19/2020 at 12:03 Approved by: Dru Chase M.D. on 10/19/2020 at 12:18 Discharge Plan Departure Patient Disposition: Home Clinical Impression: Nausea Back pain Qualifiers: Back pain location: thoracic back pain Chronicity: acute Back pain laterality: bilateral Qualified Code(s): M54.6 - Pain in thoracic spine Instructions: DI for Nausea -- Adult, DI for Thoracic Back Pain Activity Restrictions/Additional Instructions: *You have been diagnosed with [chronic nausea with a nonspecific back pain with radiation around to her front side. You have a very reassuring physical exam, labs and CT scans.] *What to do: *Take medications as directed: Please consider Tylenol and Motrin for the treatment of your pain. *Follow up with your primary care provider in 2-3 days, call for an appointment. Let them know you were seen in the Emergency Department and that we ask that you be seen in follow up *Return to ER if you should have any new, worsening or concerning symptoms, such as [worsening symptoms, fever greater than 101 F, vomiting, or other bothersome symptoms] Prescriptions: New lidocaine [Lidoderm] 5 % adhesive patch,medicated 1 patch TOP DAILY Qty: 15 RF: 0 ondansetron 4 mg tablet,disintegrating 4 mg PO TID-QID PRN (Reason: nausea and vomiting) Qty: 10 RF: 0 No Action amlodipine 5 mg tablet 5 mg PO BID RF: 0 atenolol 25 mg tablet 25 mg PO DAILY RF: 0 phenazopyridine PO RF: 0 True osteo PO RF: 0 true vision PO RF: 0 coenzyme Q10 [Co Q-10] 200 mg capsule 200 mg PO BID RF: 0 hydroxyzine pamoate 25 mg capsule See Rx Instructions .ROUTE .COMPLEX Qty: 90 RF: 1 levothyroxine 100 mcg tablet 100 mcg PO DAILY Qty: 90 RF: 1 aspirin [Adult Aspirin Regimen] 81 mg tablet,delayed release (DR/EC) 81 mg PO DAILY RF: 0 PreserVision AREDS 7,160-113-100 rise-wc-mspo tablet 2 tab PO BID RF: 0 Prevegen PO RF: 0 cholecalciferol (vitamin D3) 50 mcg (2,000 unit) capsule 50 mcg PO DAILY RF: 0 magnesium PO RF: 0 clobetasol 0.05 % gel 1 applictn TOP DAILY Qty: 60 RF: 2 potassium chloride 10 mEq tablet extended release 10 meq PO DAILY Qty: 90 RF: 3 Referrals: Van Christensen DO [Primary Care Provider] -
[2020-10-19 10:13] LABS: Add Manual Diff / Slide Review NO; Basophils Absolute Auto 0 /uL (0-100); Basophils Percent Auto 0.6 % (0-2); Eosinophils Absolute Auto 200 /uL (0-450); Eosinophils Percent Auto 1.8 % (2-4); Hemoglobin 13.7 g/dL (12.0-16.0); Lymphocytes Absolute Auto 3600 /uL (1100-4500); Lymphocytes Percent Auto 43.9 % (25-40); Mean Corpuscular HGB Conc 34.3 % (30-36); Mean Corpuscular Hemoglobin 31.8 PG (26-34); Mean Corpuscular Volume 92.8 fL (80-100); Monocytes Absolute Auto 700 /uL (0-900); Monocytes Percent Auto 8.1 % (3-14); Neutrophils Absolute Auto 3800 /uL (1500-7000); Neutrophils Percent Auto 45.6 % (50-75); Platelet Count 190 X10^3/uL (150-400); Red Cell Distribution Width 13.7 % (11.6-14.8); White Blood Cell Count 8.2 X10^3/uL (4.5-11.0)
[2020-10-19] MEDS: SODIUM CHLORIDE 0.9% 1,000 ML 150 ML IV (10:23)
[2020-10-19 10:24] LABS: Alanine Aminotransferase 28 IU/L (<35); Albumin 4.2 g/dL (3.5-5.0); Albumin Globulin Ratio 1.4 (1.0-2.8); Alkaline Phosphatase 89 U/L (38-126); Aspartate Aminotransferase 34 IU/L (14-36); BUN Creatinine Ratio 34.3 (6-22); Bilirubin Total 0.3 mg/dL (0.2-1.3); Blood Urea Nitrogen 23 mg/dL (7-17); Calcium 10.9 mg/dL (8.4-10.2); Carbon Dioxide 29 mmol/L (22-32); Chloride 106 mmol/L (98-107); Creatine Kinase < 20 U/L (30-135); Estimated Glomerular Filt Rate > 60.0 mL/min (>60); Globulin 3.1 g/dL (1.7-4.1); Glucose 100 mg/dL (80-110); HEMOLYSIS < 15 (0-50); Lipase 135 U/L (23-300); Potassium 4.2 mmol/L (3.4-5.1); Sodium 139 mmol/L (137-145); Total Protein 7.3 g/dL (6.3-8.2)
[2020-10-19 10:35] LABS: Troponin I < 0.012 ng/mL (0.01-0.034)
--- NOTE | 2020-10-19 11:04 | DI.CT.S_ITS ---
PROCEDURE: CT ANGIO CHEST ABDOMEN INDICATIONS: severe chest and back pain, abdominal pain TECHNIQUE: Precontrast 5 mm thick sections acquired from the lung apices to the iliac crests. After the administration of intravenous contrast, 2.5 mm thick sections again acquired from the lung apices to the iliac crests. 10 mm maximum intensity projection (MIP) oblique sagittal and coronal reformats were then acquired. For radiation dose reduction, the following was used: automated exposure control. COMPARISON: [facility], MR, MR LUMBAR SPINE WO CON, 07/11/2020, 9:57. [facility], CR, XR ACUTE ABDOMEN SERIES, 10/19/2020, 10:03. FINDINGS: Image quality: Excellent. AORTA: No evidence for aortic dissection or aneurysmal dilatation of the thoracic or abdominal aorta. Scattered atherosclerotic calcifications throughout. CHEST: Lungs and pleura: No acute airspace opacities. 3 mm peripheral right upper lobe nodule seen on image 55, series 6. No pleural effusions or pneumothorax. Central and peripheral airways are patent and normal in caliber. Mediastinum: Heart size is normal. No pericardial effusion. Minimal scattered atherosclerotic calcifications of the coronary arteries are noted. No mediastinal or hilar adenopathy by size criteria. Central pulmonary arteries are normal in size. No evidence for acute pulmonary emboli. Esophagus is normal in caliber. Large hiatal hernia is noted. Bones and chest wall: No axillary adenopathy by size criteria. Thyroid gland is unremarkable. No suspicious bony lesions. No acute vertebral body compression fractures. Redemonstration of severe anterior compression fracture of T11 status post vertebroplasty. Unchanged appearance of retropulsion of the posterior, superior endplate of T11 with associated mild spinal canal stenosis. Accounting for differences in technique, this is not significantly changed. ABDOMEN: Vasculature: Celiac trunk and mesenteric arteries are patent. Renal arteries are also patent. Solid organs: Liver is normal in size and enhancement. Gallbladder is unremarkable. Biliary system is non dilated. Pancreas enhances normally. Spleen is normal in size and enhancement. No adrenal nodules. Both kidneys are normal in size and enhancement, without hydronephrosis. Small left renal cysts are again noted. Peritoneum and bowel: No free fluid or air. Bowel loops are normal in caliber and wall thickness. Nodes and vessels: No retroperitoneal or mesenteric adenopathy by size criteria. Inferior vena cava is normal in morphology. Bones: No suspicious bony lesions. No acute vertebral body compression fractures of the lumbar spine. Miscellaneous: No ventral hernias. IMPRESSION: 1. CT angiogram of the chest and abdomen without evidence for aneurysmal dilatation of the aorta. No evidence for aortic dissection. 2. Large hiatal hernia. 3. No acute cardiopulmonary abnormalities. 4. 3 mm right upper lobe pulmonary nodule. Consider follow-up CT in 12 months. 5. Atherosclerotic vascular disease. 6. Stable appearance of severe compression fracture of the T11 vertebral body status post vertebroplasty. Stable retropulsion of the posterior fragment involving the superior endplate of T11 resulting in mild spinal canal stenosis. Otherwise, no acute compression fractures of the imaged spine. Dictated by: Dru Chase M.D. on 10/19/2020 at 12:03 Approved by: Dru Chase M.D. on 10/19/2020 at 12:18
[2020-10-19] MEDS: LIDOCAINE PATCH 1 EACH ADH..PATCH TOP (13:08)
[2020-10-19] MEDS: ONDANSETRON 4 MG ODT PREPACK 1 BOTTLE MISC (13:08)
== END 2020-10-19 13:24 | disposition home or self-care (01) ==
PROVIDERS: Emergency Provider Emergency Medicine; Family Provider Family Medicine; PCP Family Medicine
DX: M54.6 Pain in thoracic spine (principal); R11.0 Nausea; R10.9 Unspecified abdominal pain
CPT/HCPCS: 36415; 71275; 74022; 74175; 80053; 81003; 82550; 83690; 84484; 85025; 93005; 96360; 96361; 99284; Q9967

== ENCOUNTER → 2020-10-29 09:34 | Outpatient (CLI) | payer MEDICARE, SELFPAY ==
--- NOTE | 2020-10-29 09:36 | DI.MRI.S_ITS ---
PROCEDURE: MR THORACIC SPINE WO CON INDICATIONS: severe pain with radiculopathy TECHNIQUE: Noncontrast sagittal T1 spine echo and T2 fast spin echo, sagittal STIR, axial T1 and T2 fast spin echo through the thoracic spine. COMPARISON: [facility], MR, MR THORACIC SPINE WITHOUT CONTRAST, 12/02/2018, 10:01. [facility], CR, XR CHEST 1V, 06/20/2020, 13:10. [facility], MR, MR LUMBAR SPINE WO CON, 07/11/2020, 9:57. [facility], CT, CT ANGIO CHEST ABDOMEN, 10/19/2020, 11:05. FINDINGS: Image quality: Excellent. Alignment and Curvature: There is normal bony alignment at the upper 2/3 of the thoracic spine but there is focal kyphosis associated with a chronic moderately severe anterior wedge compression fracture with retropulsion of the upper posterior T11 vertebral body into the spinal canal, also seen by prior MR scanning 12/02/18. Bone Marrow: Marrow is of normal overall signal except for heterogeneity within the T11 vertebral body, in a pattern consistent with both posttraumatic sclerosis and vertebroplasty/kyphoplasty bone-cement within the T11 vertebral marrow space. There also is an area of new edema involving T9 with elevated fluid content causing increased STIR and decreased T1 signal, and also a mild degree vertebral body height reduction has developed at that level where prior vertebral morphology was normal in 2019. The middle 3rd of the vertebral body shows a 20% reduction when compared to the the T10 vertebral body immediately below . This likely represents evidence of a mild acute or subacute vertebral body compression fracture, but there is a mild degree of edema as seen on the sagittal STIR imaging within the T9-T10 disc space. Spinal Cord: Visualized spinal cord is normal in size and signal. Paraspinous Soft Tissues: No paravertebral masses. Miscellaneous: On axial images, central canal and foramina appear widely patent at all scanned levels. IMPRESSION: A prior T11 moderately severe chronic vertebral body wedge compression fracture is again seen, stable in morphology from 2019. What appears to be a new acute or subacute mild T9 compression fracture is present without paravertebral soft tissue edema but with 20% middle 3rd vertebral body height reduction when compared to the T10 level immediately below. The study is performed without contrast. The likelihood of discitis and osteomyelitis is considered relatively low but correlation with inflammatory markers is recommended. Discitis/osteomyelitis generally involves the adjacent disc level and vertebral body marrow space either above or below with associated paravertebral inflammatory changes. There likely is mild edema within the T9-T10 disc space, which may be reactive in origin, and correlation with evidence of infection is recommended in this particular case given this finding. A disc herniation or inflammatory process impinging on the spinal canal is not found at this time. Dictated by: Tomas Peterson M.D. on 10/29/2020 at 14:05 Approved by: Tomas Peterson M.D. on 10/29/2020 at 14:23
== END ==
PROVIDERS: Family Provider Family Medicine; PCP Family Medicine; Referring Provider Family Medicine; Visit Provider Family Medicine
DX: M54.42 Lumbago with sciatica, left side (principal); M54.41 Lumbago with sciatica, right side; M48.54XS Collapsed vertebra, not elsewhere classified, thoracic region, sequela of fracture; M47.24 Other spondylosis with radiculopathy, thoracic region
CPT/HCPCS: 72146

== ENCOUNTER → 2020-11-16 15:25 | Outpatient (CLI) | payer MEDICARE, SELFPAY ==
--- NOTE | 2020-11-16 15:31 | DI.RAD.S_ITS ---
PROCEDURE: XR CHEST 2V INDICATIONS: cough TECHNIQUE: 2 views of the chest were acquired. COMPARISON: [facility], CR, XR CHEST 1V, 06/20/2020, 13:10. FINDINGS: Surgical changes and devices: None. Lungs and pleura: Lungs are clear. No pleural effusions or pneumothorax. Mediastinum: Mediastinal contours are normal. Heart size is normal. Moderate hiatal hernia behind the heart. Bones and chest wall: No suspicious bony abnormalities. Soft tissues appear unremarkable. IMPRESSION: Moderate-sized hiatal hernia behind the heart. No source of cough is found. Incidental note is made of a low thoracic spine region of previously present bone-cement representing a site of prior vertebroplasty. Dictated by: Tomas Peterson M.D. on 11/16/2020 at 16:30 Approved by: Tomas Peterson M.D. on 11/16/2020 at 16:31
[2020-11-16 16:10] LABS: Add Manual Diff / Slide Review NO; Basophils Absolute Auto 0 /uL (0-100); Basophils Percent Auto 0.7 % (0-2); Eosinophils Absolute Auto 300 /uL (0-450); Eosinophils Percent Auto 4.5 % (2-4); Hematocrit 39.2 % (36-46); Hemoglobin 12.7 g/dL (12.0-16.0); Lymphocytes Absolute Auto 2700 /uL (1100-4500); Lymphocytes Percent Auto 40.2 % (25-40); Mean Corpuscular HGB Conc 32.4 % (30-36); Mean Corpuscular Hemoglobin 30.9 PG (26-34); Mean Corpuscular Volume 95.6 fL (80-100); Monocytes Absolute Auto 600 /uL (0-900); Monocytes Percent Auto 9.2 % (3-14); Neutrophils Absolute Auto 3100 /uL (1500-7000); Neutrophils Percent Auto 45.4 % (50-75); Platelet Count 214 X10^3/uL (150-400); Red Cell Distribution Width 14.3 % (11.6-14.8); White Blood Cell Count 6.8 X10^3/uL (4.5-11.0)
[2020-11-16 16:31] LABS: Alanine Aminotransferase 21 IU/L (<35); Albumin Globulin Ratio 1.4 (1.0-2.8); Alkaline Phosphatase 101 U/L (38-126); Aspartate Aminotransferase 34 IU/L (14-36); BUN Creatinine Ratio 26.3 (6-22); Bilirubin Total 0.2 mg/dL (0.2-1.3); Blood Urea Nitrogen 20 mg/dL (7-17); Calcium 10.6 mg/dL (8.4-10.2); Carbon Dioxide 35 mmol/L (22-32); Chloride 104 mmol/L (98-107); Estimated Glomerular Filt Rate > 60.0 mL/min (>60); Globulin 2.9 g/dL (1.7-4.1); Glucose 108 mg/dL (80-110); HEMOLYSIS < 15 (0-50); Sodium 141 mmol/L (137-145); Total Protein 6.9 g/dL (6.3-8.2)
== END ==
PROVIDERS: Family Provider Family Medicine; PCP Family Medicine; Referring Provider Registered Nurse; Visit Provider Registered Nurse
DX: R05 Cough (principal); J98.8 Other specified respiratory disorders
CPT/HCPCS: 36415; 71046; 80053; 85025

== ENCOUNTER → 2020-11-21 10:51 | Outpatient (CLI) | payer MEDICARE, SELFPAY ==
--- NOTE | 2020-11-21 10:52 | DI.US.S_ITS ---
PROCEDURE: US PERIPH VENOUS LOW EXTREM BI INDICATIONS: EDEMA TECHNIQUE: Real-time imaging, as well as color and pulse Doppler interrogation, were performed of the deep veins of both legs from the inguinal ligament to the popliteal fossa. COMPARISON: None. FINDINGS: Right: The common femoral, femoral and popliteal veins are normally compressible, and free of intraluminal thrombus. Color and pulse Doppler demonstrate normal phasic intravascular flow. There is normal augmentation response to distal compression maneuver. Left: The common femoral, femoral and popliteal veins are normally compressible, and free of intraluminal thrombus. Color and pulse Doppler demonstrate normal phasic intravascular flow. There is normal augmentation response to distal compression maneuver. IMPRESSION: Negative bilateral lower extremity duplex venous ultrasound for DVT. Dictated by: Aashish Escalante M.D. on 11/21/2020 at 11:37 Approved by: Aashish Escalante M.D. on 11/21/2020 at 11:37
== END ==
PROVIDERS: Family Provider Family Medicine; PCP Family Medicine; Referring Provider Registered Nurse; Visit Provider Registered Nurse
DX: R60.0 Localized edema (principal); M79.609 Pain in unspecified limb; Z86.718 Personal history of other venous thrombosis and embolism
CPT/HCPCS: 93970

== ENCOUNTER → 2021-01-03 09:38 | Outpatient (CLI) | payer MEDICARE, SELFPAY | PROVIDERS: Family Provider Family Medicine; PCP Family Medicine; Referring Provider Orthopaedic Surgery; Visit Provider Orthopaedic Surgery | DX: M81.0 Age-related osteoporosis without current pathological fracture (principal); Z78.0 Asymptomatic menopausal state; E07.9 Disorder of thyroid, unspecified; M48.56XA Collapsed vertebra, not elsewhere classified, lumbar region, initial encounter for fracture; M54.6 Pain in thoracic spine; Z82.62 Family history of osteoporosis | CPT/HCPCS: 77080 ==

== ENCOUNTER → 2021-02-15 09:14 | Outpatient (CLI) | payer MEDICARE, SELFPAY ==
--- NOTE | 2021-02-15 | DI.US.S_ITS ---
ULTRASOUND OF LEFT BREAST AND AXILLA: 02/15/2021 CLINICAL: Left axillary pain. Comparison is made to exams dated: 02/15/2021 mammogram - [facility], 06/02/2019 mammogram, 02/05/2018 mammogram, and 09/02/2016 mammogram - [facility]. Real-time ultrasound of the left breast axilla was performed. Dotson scale images of the real-time examination were reviewed. No significant abnormalities were seen sonographically in the left axilla. Specifically, no finding to explain the patient's pain. IMPRESSION: NEGATIVE There is no sonographic evidence of malignancy. Mammograms are stable. NO explaination for patient's diffuse bilateral breast and left axillary pain. Return to annual mammogram screening schedule is recommended. Findings and recommendations were conveyed to the patient at time of exam. This exam was interpreted at Station ID: [id number]. Electronically Signed By: Carly sanchez/:02/15/2021 10:41:27 letter sent: Normal Exam Ultrasound BI-RADS: 1 Negative
--- NOTE | 2021-02-15 | DI.MG.S_ITS ---
BILATERAL DIGITAL DIAGNOSTIC MAMMOGRAM 3D/2D: 02/15/2021 CLINICAL: Left breast pain. Comparison is made to exams dated: 09/02/2016 mammogram, 02/05/2018 mammogram, and 06/02/2019 mammogram - [facility]. There are scattered fibroglandular elements in both breasts. No significant masses, calcifications, or other findings are seen in either breast. Mammograms are stable. IMPRESSION: INCOMPLETE: NEEDS ADDITIONAL IMAGING EVALUATION There is no abnormality seen in either breast or in the left axilla to correspond with the diffuse bilateral breast pain and pain in the left axilla. Left axillary ultrasound is recommended for full evaluation of this area. This was performed immediately following this exam. This exam was interpreted at Station ID: [id number]. NOTE: For mammograms, a report in lay terms will be sent to the patient. Approximately 15% of breast malignancies will not be visualized mammographically. In the management of a palpable breast mass, a negative mammogram must not discourage biopsy of a clinically suspicious lesion. Electronically Signed By: Carly sanchez/:02/15/2021 10:18:38 ACR BI-RADS Category 0: Incomplete [id number]
== END ==
PROVIDERS: Family Provider Family Medicine; PCP Family Medicine; Referring Provider Family Medicine; Visit Provider Family Medicine
DX: R92.8 Other abnormal and inconclusive findings on diagnostic imaging of breast (principal); N64.4 Mastodynia
CPT/HCPCS: 76882; 77066; G0279

== ENCOUNTER 2021-02-22 15:54 | Emergency (ER) | payer MEDICARE, SELFPAY ==
[2021-02-22 16:10] VITALS: BP 174/81; PULSE 69; RESP 12; TEMP 36.4; O2SAT 97; BMI 24.9
--- NOTE | 2021-02-22 16:13 | DI.RAD.S_ITS ---
PROCEDURE: XR ANKLE LT MIN 3V INDICATIONS: left ankle pain, osteoporosis TECHNIQUE: 3 views of the ankle were acquired. COMPARISON: None. FINDINGS: Bones: No displaced fractures or dislocations. Ankle mortise is normally aligned. There is diffuse demineralization of the visualized osseous structures compatible with history of osteoporosis. Soft tissues: No tibiotalar joint effusion. Achilles tendon appears intact with a small enthesophyte at its insertion. IMPRESSION: 1. No displaced fracture or dislocation. 2. Marked demineralization compatible with history of osteoporosis. Dictated by: Will Begum M.D. on 02/22/2021 at 16:33 Approved by: Will Begum M.D. on 02/22/2021 at 16:35
--- NOTE | 2021-02-22 16:52 | ED.LOWEXIN ---
HPI - Extremity Injury (Lower) General Chief Complaint: Extremity Injury, Lower Stated Complaint: thinks she may have broken bone Left ankle Time Seen by Provider: 02/22/21 16:29 Source: patient Mode of arrival: Ambulatory Limitations: no limitations History of Present Illness HPI Narrative: Patient is an 85-year-old female here for evaluation of discomfort on the outside of her left ankle. She states she was walking around her residential today in the ?wrong. She used ?when she started having pain on the outside of her ankle. She does not remember any specific incident that cause the discomfort but she states she has broken a bone in her left foot in the past and walked around on it for several days for she found out it was broken. She touch the left side of her ankle and was uncomfortable so she decided to come in to get evaluated. Related Data Home Medications Medication Instructions Recorded Confirmed True osteo PO 11/21/19 02/20/21 atenolol 25 mg tablet 25 mg PO DAILY 11/21/19 02/20/21 phenazopyridine PO 11/21/19 02/20/21 true vision PO 11/21/19 02/20/21 aspirin 81 mg tablet,delayed 81 mg PO DAILY 12/15/19 02/20/21 release Prevegen PO 01/13/20 02/20/21 cholecalciferol (vitamin D3) 50 50 mcg PO DAILY 01/13/20 02/20/21 mcg (2,000 unit) capsule coenzyme Q10 200 mg capsule 200 mg PO BID cap 01/13/20 02/20/21 magnesium PO 01/13/20 02/20/21 vitamins A,C,K-rozf-nwaomd 7,160 2 tab PO BID 01/13/20 02/20/21 unit-113 mg-100 unit tablet Previous Rx's Medication Instructions Recorded clobetasol 0.05 % topical gel 1 applictn TOP DAILY #60 gram 06/13/20 potassium chloride 10 mEq 10 meq PO DAILY #90 tab 06/13/20 tablet,extended release hydroxyzine pamoate 25 mg capsule See Rx Instructions .ROUTE 09/12/20 .COMPLEX #90 capsule levothyroxine 100 mcg tablet 100 mcg PO DAILY #90 tab 10/12/20 lidocaine [Lidoderm] 1 patch TOP DAILY #15 each 10/19/20 gabapentin 300 mg capsule 600 mg PO Q8H PRN #180 cap 10/31/20 oxycodone-acetaminophen 5 mg-325 1 tab PO Q8H PRN #90 tab 11/09/20 mg tablet amlodipine 5 mg tablet See Rx Instructions .ROUTE 11/27/20 .COMPLEX #180 tab ondansetron 4 mg disintegrating See Rx Instructions .ROUTE 12/12/20 tablet .COMPLEX #10 tab Allergies Allergy/AdvReac Type Severity Reaction Status Date / Time latex [LATEX] Allergy Mild WELTS Verified 02/22/21 16:13 morphine [MORPHINE] Allergy Mild WELTS Verified 02/22/21 16:13 Sulfa (Sulfonamide Allergy Mild UNK Verified 02/22/21 16:13 Antibiotics) [SULFA (SULFONAMIDE ANTIBIOTICS)] alendronate sodium Allergy Unknown Verified 02/22/21 16:13 [From FOSAMAX] acetaminophen [From Percocet] AdvReac Intermediate altered Verified 02/22/21 16:13 mental status oxycodone [From Percocet] AdvReac Intermediate altered Verified 02/22/21 16:13 mental status PCN Allergy Mild HIVES Uncoded 02/22/21 16:13 Review of Systems Constitutional Constitutional: Denies fever(s) Musculoskeletal Musculoskeletal: Denies tingling Comments: Left ankle pain Integumentary/Breasts Skin/Breast: Denies lesions and Denies rash Neurologic Neurologic: Denies tingling Hematologic/Lymphatic On Anticoagulants: No Allergic/Immunologic Allergic/Immunologic: Denies urticaria Patient History Medical History Acute bilateral thoracic back pain Anxiety Aortic regurgitation Bilateral leg cramps Body posture problem Cervical somatic dysfunction Chest wall pain, chronic Chicken pox Chronic back pain Colon polyps (~1994) Cranial somatic dysfunction Fractures Generalized pruritus Hearing loss History of urinary incontinence (~2015) Hypothyroidism (~1982) Insomnia Kyphosis Left elbow pain Leg cramps Low back pain Low back pain with bilateral sciatica Macular degeneration (~2000) Measles Mumps Osteoporosis Pain of left breast Pelvic somatic dysfunction Polio (~194) Pulmonary embolism (~2004) Pulmonary nodule, right Rib pain on left side Rib pain on left side Scoliosis Segmental and somatic dysfunction of abdomen and other regions Segmental and somatic dysfunction of lumbar region Segmental and somatic dysfunction of rib cage Segmental and somatic dysfunction of sacral region Segmental and somatic dysfunction of thoracic region Stiff neck Thoracic spine fracture Transient ischemic attack (~1997) Upper extremity somatic dysfunction UTI (urinary tract infection) Vitiligo (~1975) Surgical History Anesthesia History of bladder suspension procedure (~1998) History of cataract removal with insertion of prosthetic lens (~2014) History of elbow surgery (~08/2015) History of hip replacement (~2004) History of kyphoplasty (~2002) History of surgery on right wrist (~10/14/19) Family History Father Suicide Mental health problem Mother Pancreatitis Brother No problems noted. Brother No problems noted. Sister Mental health problem Grandmother Senility Social History Smoking Status: Never smoker Smoking Status: Never smoker alcohol intake frequency: 0-2 drinks per day Alcohol type: wine Substance Use Type: does not use Exam Initial Vital Signs Initial Vital Signs: Vital Signs Temperature 97.6 F 02/22/21 16:10 Pulse Rate 69 02/22/21 16:10 Respiratory Rate 12 02/22/21 16:10 Blood Pressure 174/81 H 02/22/21 16:10 Pulse Oximetry 97 02/22/21 16:10 Const General: cooperative and comfortable Limitations: mental status not altered HENMT Head: normal to inspection and normocephalic Eyes General: appearance normal, both eyes and all related structures Cardio Pulses: dorsalis pedis present on the left Skin Lesions: no lesions Rashes: no rashes Neuro Sensory Exam: no sensory deficits noted Extrem General: normal to inspection and capillary refill normal Other: Tenderness to palpation just inferior to the lateral malleolus of the left ankle. The rest of her ankle, Achilles, proximal fibula, foot, lower extremity exam is unremarkable. Psych Appearance: grossly normal and well kempt Procedures Orthopedic Splinting/Casting Injury #1: Side: left Lower Extremity Injury Location: ankle Lower Extremity Immobilizer: Frandy wrap Post splinting neuro exam: intact Post splinting vascular exam: intact Placed by: Provider Course Orders Ordered: ED Orders 02/22/21 16:13 XR ankle LT min 3V Stat Vital Signs Vital signs: Vital Signs - 8 hr 02/22/21 16:10 02/22/21 17:09 Temperature 97.6 F Pulse Rate 69 66 Respiratory Rate 12 16 Blood Pressure 174/81 H 186/87 H Pulse Oximetry 97 96 [facility] - Extremity Injury (Lower) Imaging Data Extremity x-ray #1: Radiologist's Impression: [address] [id number] ReportSigned Patient: Bettie Patel BMR#: [id number]: 5Acct:[id number]/Sex: 85 / FDate of Service: 02/22/21Loc: EDAccession Number: [id number] Procedure: XR ankle LT min 3V Ordering Provider: Carlos Olvera D.O. PROCEDURE: XR ANKLE LT MIN 3V INDICATIONS: left ankle pain, osteoporosis TECHNIQUE: 3 views of the ankle were acquired. COMPARISON: None. FINDINGS: Bones: No displaced fractures or dislocations. Ankle mortise is normally aligned. There is diffuse demineralization of the visualized osseous structures compatible with history of osteoporosis. Soft tissues: No tibiotalar joint effusion. Achilles tendon appears intact with a small enthesophyte at its insertion. IMPRESSION: 1. No displaced fracture or dislocation. 2. Marked demineralization compatible with history of osteoporosis. Dictated by: Will Begum M.D. on 02/22/2021 at 16:33 Approved by: Will Begum M.D. on 02/22/2021 at 16:35 [facility] Narrative Medical decision making narrative: There were no fractures noted on the x-rays. She is neurovascularly intact. She does have a walker and walked into the emergency department thought problems. She was given an Frandy bandage for her comfort. Was given instructions with regard to elevation in ice. She is given return precautions. She expressed understanding and agreement. Discharge Plan Departure Patient Disposition: Home Clinical Impression: Ankle pain, left Instructions: How To Perform RICE (Rest, Ice, Compress, Elevate), How to Apply an Elastic Wrap on Ankle Activity Restrictions/Additional Instructions: You can walk on your leg because there are no fractures noted on the x-rays. Use the Frandy bandage as needed for your comfort. Also recommend you keep your foot elevated and iced like we discussed. Return to the emergency department for any new or worsening symptoms Prescriptions: No Action atenolol 25 mg tablet 25 mg PO DAILY RF: 0 phenazopyridine PO RF: 0 True osteo PO RF: 0 true vision PO RF: 0 coenzyme Q10 [Co Q-10] 200 mg capsule 200 mg PO BID RF: 0 hydroxyzine pamoate 25 mg capsule See Rx Instructions .ROUTE .COMPLEX Qty: 90 RF: 1 levothyroxine 100 mcg tablet 100 mcg PO DAILY Qty: 90 RF: 1 oxycodone-acetaminophen [Percocet] 5-325 mg tablet 1 tab PO Q8H PRN (Reason: pain) Qty: 90 RF: 0 amlodipine 5 mg tablet See Rx Instructions .ROUTE .COMPLEX Qty: 180 RF: 1 ondansetron 4 mg tablet,disintegrating See Rx Instructions .ROUTE .COMPLEX Qty: 10 RF: 0 aspirin [Adult Aspirin Regimen] 81 mg tablet,delayed release (DR/EC) 81 mg PO DAILY RF: 0 PreserVision AREDS 7,160-113-100 gmms-pe-dnqn tablet 2 tab PO BID RF: 0 Prevegen PO RF: 0 cholecalciferol (vitamin D3) 50 mcg (2,000 unit) capsule 50 mcg PO DAILY RF: 0 magnesium PO RF: 0 gabapentin 300 mg capsule 600 mg PO Q8H PRN (Reason: pain) Qty: 180 RF: 0 clobetasol 0.05 % gel 1 applictn TOP DAILY Qty: 60 RF: 2 potassium chloride 10 mEq tablet extended release 10 meq PO DAILY Qty: 90 RF: 3 lidocaine [Lidoderm] 5 % adhesive patch,medicated 1 patch TOP DAILY Qty: 15 RF: 0 Referrals: Van Christensen DO [Primary Care Provider] -
[2021-02-22 17:09] VITALS: BP 186/87; PULSE 66; RESP 16; O2SAT 96
== END 2021-02-22 17:09 | disposition home or self-care (01) ==
PROVIDERS: Emergency Provider Emergency Medicine; Family Provider Family Medicine; PCP Family Medicine
DX: M25.572 Pain in left ankle and joints of left foot (principal)
CPT/HCPCS: 73610; 99281; 99283

== ENCOUNTER → 2021-08-27 14:18 | Outpatient (CLI) | payer MEDICARE, SELFPAY ==
[2021-08-27 15:42] LABS: Alanine Aminotransferase 29 IU/L (<35); Albumin 4.3 g/dL (3.5-5.0); Albumin Globulin Ratio 1.4 (1.0-2.8); Alkaline Phosphatase 44 U/L (38-126); Aspartate Aminotransferase 35 IU/L (14-36); BUN Creatinine Ratio 31.6 (6-22); Bilirubin Total 0.4 mg/dL (0.2-1.3); Blood Urea Nitrogen 24 mg/dL (7-17); Calcium 11.2 mg/dL (8.4-10.2); Carbon Dioxide 31 mmol/L (22-32); Chloride 105 mmol/L (98-107); Estimated Glomerular Filt Rate > 60.0 mL/min (>60); Glucose 103 mg/dL (80-110); HEMOLYSIS < 15 (0-50); Sodium 144 mmol/L (137-145); Total Protein 7.3 g/dL (6.3-8.2)
== END ==
PROVIDERS: Family Provider Family Medicine; PCP Family Medicine; Referring Provider Family Medicine; Visit Provider Family Medicine
DX: E03.9 Hypothyroidism, unspecified (principal); G89.29 Other chronic pain; I10 Essential (primary) hypertension; M54.41 Lumbago with sciatica, right side; M54.42 Lumbago with sciatica, left side; S22.070D Wedge compression fracture of T9-T10 vertebra, subsequent encounter for fracture with routine healing
CPT/HCPCS: 36415; 80053

== ENCOUNTER → 2021-09-06 09:58 | Outpatient (CLI) | payer MEDICARE, SELFPAY ==
[2021-09-06 12:39] LABS: TSH w/ Reflex to FT4 0.27 uIU/mL (0.47-4.68)
[2021-09-06 15:57] LABS: Free T4, Direct Thyroxine 1.29 ng/dL (0.78-2.19)
[2021-09-07 11:08] LABS: Calcium 10.3 mg/dL (8.7-10.3); Parathyroid Hormone, Intact 59 pg/mL (15-65)
== END ==
PROVIDERS: Family Provider Family Medicine; PCP Family Medicine; Referring Provider Family Medicine; Visit Provider Family Medicine
DX: E03.9 Hypothyroidism, unspecified (principal); E83.52 Hypercalcemia
CPT/HCPCS: 36415; 82310; 83970; 84439; 84443

== ENCOUNTER → 2021-10-14 13:01 | Outpatient (CLI) | payer MEDICARE, SELFPAY ==
--- NOTE | 2021-10-14 13:03 | DI.RAD.S_ITS ---
PROCEDURE: XR KNEE RT 3V INDICATIONS: R knee pain, effusion TECHNIQUE: 3 views of the knee were acquired. COMPARISON: None. FINDINGS: Bones: The lateral tibial plateau articular surface appears irregular with possible low pressure in of the posterolateral portion. Mild tricompartmental degenerative changes are seen. Soft tissues: Small joint effusion. No suspicious soft tissue calcifications. IMPRESSION: Suspected mildly depressed fracture of the lateral tibial plateau. Small joint effusion. Dedicated MRI or CT could be obtained for confirmation and further characterization. Dictated by: Patrice Bahena M.D. on 10/14/2021 at 13:32 Approved by: Patrice Bahena M.D. on 10/14/2021 at 13:35
== END ==
PROVIDERS: Family Provider Family Medicine; PCP Family Medicine; Referring Provider Physician Assistant; Visit Provider Physician Assistant
DX: M25.561 Pain in right knee (principal); M25.461 Effusion, right knee
CPT/HCPCS: 73562

== ENCOUNTER → 2021-10-17 13:12 | Outpatient (CLI) | payer MEDICARE, SELFPAY ==
--- NOTE | 2021-10-17 13:13 | DI.MRI.S_ITS ---
PROCEDURE: MR KNEE RT WO CON INDICATIONS: possible right knee fracture TECHNIQUE: Noncontrast sagittal PD fast spin echo and T2 fast spin echo with fat saturation, sagittal 3-D FLASH with fat saturation; coronal T1 spin echo and PD fast spin echo with fat saturation, and axial PD fast spin echo with fat saturation through the knee. COMPARISON: [facility], CR, XR KNEE RT 3V, 10/14/2021, 13:00. FINDINGS: Image quality: Excellent. Menisci: Linear oblique high signal intensity traverses the medial meniscal body and posterior horn, demonstrating inferior articular surface extension, indicating oblique tearing. Amorphous high signal intensity within the lateral meniscal body and posterior horn, demonstrating inferior articular surface extension, indicating degenerative tearing. Cruciate ligaments: The anterior and posterior cruciate ligaments appear intact. Moderate T2 signal elevation along the course of the anterior cruciate ligament, consistent with myxoid degeneration. Medial structures: The medial collateral ligament appears intact. Visualized portions of the pes anserinus tendons appear normal. Small amount of medial bursal fluid. Lateral structures: The lateral collateral ligament, long and short heads of the biceps femoris tendon appear intact. The popliteus tendon appears normal. Iliotibial band appears normal. Anterior structures: The quadriceps and patellar tendons appear intact. Patellar alignment is normal. No femoral trochlear dysplasia or ventral trochlear prominence. No edema in the infrapatellar fat pad. Bones and cartilage: No acute bone marrow contusions or fractures. Chronic depression of the mid and posterior weight-bearing aspect of the lateral tibial plateau, which is depressed inferiorly by roughly 10 mm. There is moderate ill-defined T2 signal elevation within the mid and posterior weight-bearing aspects of the lateral femoral condyle and lateral tibial plateau. Mild tricompartmental periarticular osteophyte formation is present. Severe articular cartilage loss diffusely overlies the weight-bearing aspects of the medial femoral condyle and medial tibial plateau. Severe articular cartilage loss diffusely overlies the weight-bearing aspects of the lateral femoral condyle and lateral tibial plateau. Moderate articular cartilage loss overlies the medial and lateral patellar facet. Joint space: There is a moderate knee joint effusion and a small Anglin's cyst. Normal appearing synovial plicae are incidentally noted. IMPRESSION: 1. Tricompartmental osteoarthritis with associated articular cartilage loss. 2. Chronic depressed fracture deformity of the lateral tibial plateau. 3. Medial and lateral meniscal tearing. 4. Knee joint effusion and Anglin's cyst. 5. Medial bursitis. Dictated by: Emmie Noriega M.D. on 10/17/2021 at 14:58 Approved by: Emmie Noriega M.D. on 10/17/2021 at 15:00
== END ==
PROVIDERS: Family Provider Family Medicine; PCP Family Medicine; Referring Provider Physician Assistant; Visit Provider Physician Assistant
DX: S83.281A Other tear of lateral meniscus, current injury, right knee, initial encounter (principal); S83.241A Other tear of medial meniscus, current injury, right knee, initial encounter; S82.141S Displaced bicondylar fracture of right tibia, sequela; M17.11 Unilateral primary osteoarthritis, right knee; M71.21 Synovial cyst of popliteal space [Baker], right knee; M25.561 Pain in right knee; M25.461 Effusion, right knee
CPT/HCPCS: 73721

== ENCOUNTER → 2021-11-15 10:16 | Outpatient (CLI) | payer MEDICARE, SELFPAY ==
[2021-11-16 08:12] LABS: Calcium 10.7 mg/dL (8.7-10.3); Parathyroid Hormone, Intact 56 pg/mL (15-65)
== END ==
PROVIDERS: Family Provider Family Medicine; PCP Family Medicine; Referring Provider Family Medicine; Visit Provider Family Medicine
DX: E03.9 Hypothyroidism, unspecified (principal); I10 Essential (primary) hypertension; S22.009A Unspecified fracture of unspecified thoracic vertebra, initial encounter for closed fracture; E83.52 Hypercalcemia
CPT/HCPCS: 36415; 82310; 83970; 84443

== ENCOUNTER → 2022-01-09 10:38 | Outpatient (CLI) | payer MEDICARE, SELFPAY | PROVIDERS: Family Provider Family Medicine; PCP Family Medicine; Referring Provider Family Medicine; Visit Provider Family Medicine | DX: M81.0 Age-related osteoporosis without current pathological fracture (principal); Z78.0 Asymptomatic menopausal state; S22.070D Wedge compression fracture of T9-T10 vertebra, subsequent encounter for fracture with routine healing; M54.41 Lumbago with sciatica, right side; M54.42 Lumbago with sciatica, left side; G89.29 Other chronic pain | CPT/HCPCS: 77080 ==

== ENCOUNTER → 2022-02-22 09:33 | Outpatient (CLI) | payer MEDICARE, SELFPAY ==
--- NOTE | 2022-02-22 10:24 | DI.RAD.S_ITS ---
PROCEDURE: XR HIP W PEL IF DONE LIZ MIN 4V INDICATIONS: bilateral hip pain with prior replacement TECHNIQUE: AP pelvis with lateral view(s) of the bilateral Dom hip(s). COMPARISON: None. FINDINGS: Bones: No fractures or dislocations. Pelvic ring appears intact. No suspicious bony lesions. Bilateral hip arthroplasties are present. Hardware is intact without fracture. No periprosthetic lucency is present to suggest loosening. Mild degenerative changes are present within the lower lumbar spine. Soft tissues: The visualized bowel gas pattern is normal. No suspicious soft tissue calcifications. IMPRESSION: Stable appearance of bilateral hip arthroplasties. Degenerative lower lumbar spine arthritic change. Dictated by: Yeny Flanagan M.D. on 02/22/2022 at 11:19 Approved by: Yeny Flanagan M.D. on 02/22/2022 at 11:20
--- NOTE | 2022-02-22 10:24 | DI.MRI.S_ITS ---
PROCEDURE: MR THORACIC SPINE WO CON INDICATIONS: Worsening thoracic spine pain. TECHNIQUE: Noncontrast sagittal T1 spine echo and T2 fast spin echo, sagittal STIR, axial T1 and T2 fast spin echo through the thoracic spine. COMPARISON: [facility], CR, XR THORACIC SPINE 2 VIEWS, 03/06/2021, 9:51. [facility], CR, XR CHEST 2V, 11/16/2020, 16:38. [facility], MR, MR THORACIC SPINE WO CON, 10/29/2020, 9:47. FINDINGS: Image quality: Excellent. Alignment and Curvature: Acute angle kyphosis at T10-T11 secondary to a severe T11 compression fracture. There is bony retropulsion measuring 5 mm at that level. The other vertebral bodies are normally aligned. Bone Marrow: Marrow is of normal overall signal. No acute vertebral body compression fractures. Old moderate T9 inferior endplate compression. Old severe T11 compression fracture, treated with percutaneous cement. Spinal Cord: Visualized spinal cord is normal in size and signal. Paraspinous Soft Tissues: No paravertebral masses. Miscellaneous: Note is made of lower cervical spine degenerative change with canal stenosis at C5-C6 and C6-C7. At T7-T8, there is minimal central posterior disc protrusion without canal stenosis. The foramina are patent. At T8-T9, there is minimal right paracentral disc protrusion without canal stenosis. There is no foraminal stenosis. At T9-T10, there is mild posterior disc plus osteophyte without canal stenosis. There is right facet hypertrophy. There is moderate right foraminal narrowing with right foraminal flattening of the exiting right T9 nerve root. At T10-T11, there is mild bony retropulsion secondary to the fracture. There is mild canal stenosis. There is no foraminal stenosis. IMPRESSION: 1. No acute compression fractures. Chronic compression fractures of T9 and T11. There has been remote treatment of T11 with percutaneous cement. 2. Incidental note is made of cervical canal stenosis at C5-C6 and C6-C7. 3. There is mild canal stenosis at T10-T11. There is moderate right foraminal narrowing at T9-T10. Dictated by: Aashish Escalante M.D. on 02/24/2022 at 8:59 Approved by: Aashish Escalante M.D. on 02/24/2022 at 9:11
[2022-02-22 10:41] LABS: Alanine Aminotransferase 24 IU/L (<35); Albumin 4.3 g/dL (3.5-5.0); Albumin Globulin Ratio 1.3 (1.0-2.8); Alkaline Phosphatase 56 U/L (38-126); Aspartate Aminotransferase 32 IU/L (14-36); BUN Creatinine Ratio 26.3 (6-22); Bilirubin Total 0.6 mg/dL (0.2-1.3); Blood Urea Nitrogen 20 mg/dL (7-17); Calcium 10.1 mg/dL (8.4-10.2); Carbon Dioxide 27 mmol/L (22-32); Chloride 107 mmol/L (98-107); Estimated Glomerular Filt Rate > 60 mL/min (>60); Globulin 3.2 g/dL (1.7-4.1); Glucose 92 mg/dL (80-110); HEMOLYSIS < 15 (0-50); Potassium 3.9 mmol/L (3.4-5.1); Sodium 142 mmol/L (137-145); Total Protein 7.5 g/dL (6.3-8.2)
[2022-02-26 02:21] LABS: Calcium 10.4 mg/dL (8.7-10.3); Parathyroid Hormone, Intact 50 pg/mL (15-65)
== END ==
PROVIDERS: Family Provider Family Medicine; PCP Family Medicine; Referring Provider Family Medicine; Visit Provider Family Medicine
DX: E83.52 Hypercalcemia (principal); G89.29 Other chronic pain; M54.6 Pain in thoracic spine; M25.551 Pain in right hip; M25.552 Pain in left hip; M80.00XS Age-related osteoporosis with current pathological fracture, unspecified site, sequela; R07.81 Pleurodynia
CPT/HCPCS: 36415; 72146; 73522; 80053; 82310; 83970

== ENCOUNTER → 2022-03-10 10:44 | Outpatient (CLI) | payer MEDICARE, SELFPAY ==
--- NOTE | 2022-03-10 | DI.MG.S_ITS ---
BILATERAL DIGITAL SCREENING MAMMOGRAM 3D/2D WITH CAD: 03/10/2022 CLINICAL: Routine screening. Family history of breast cancer. Comparison is made to exams dated: 02/15/2021 mammogram - [facility], 06/02/2019 mammogram, and 02/05/2018 mammogram - [facility]. There are scattered fibroglandular elements in both breasts. Current study was also evaluated with a Computer Aided Detection (CAD) system. No significant masses, calcifications, or other findings are seen in either breast. There has been no significant interval change. IMPRESSION: NEGATIVE There is no mammographic evidence of malignancy. A 1 year screening mammogram is recommended. This exam was interpreted at Station ID: [id number]. NOTE: For mammograms, a report in lay terms will be sent to the patient. Approximately 15% of breast malignancies will not be visualized mammographically. In the management of a palpable breast mass, a negative mammogram must not discourage biopsy of a clinically suspicious lesion. Electronically Signed By: Dru hernandez/idalmis:03/10/2022 11:09:21 letter sent: Normal Exam ACR BI-RADS Category 1: Negative [id number]
== END ==
PROVIDERS: Family Provider Family Medicine; PCP Family Medicine; Referring Provider Family Medicine; Visit Provider Family Medicine
DX: Z12.31 Encounter for screening mammogram for malignant neoplasm of breast (principal); Z80.3 Family history of malignant neoplasm of breast
CPT/HCPCS: 77063; 77067

== ENCOUNTER 2022-03-17 13:11 | Emergency (ER) | payer MEDICARE, SELFPAY ==
[2022-03-17 13:20] VITALS: BP 138/71; PULSE 70; RESP 16; TEMP 36.7; O2SAT 97; BMI 26.2
--- NOTE | 2022-03-17 13:24 | DI.RAD.S_ITS ---
PROCEDURE: XR CHEST 1V INDICATIONS: chest pain TECHNIQUE: One view of the chest was acquired. COMPARISON: [facility], CT, CT ANGIO CHEST ABDOMEN, 10/19/2020, 11:05. [facility], CR, XR CHEST 2V, 11/16/2020, 16:38. [facility], CR, XR CHEST 1V, 06/20/2020, 13:10. FINDINGS: Surgical changes and devices: None. Lungs and pleura: Left hemidiaphragm elevation and left basilar atelectasis. No pleural effusions or pneumothorax. Mediastinum: Mediastinal contours appear normal. Heart size is normal. Moderate-sized hiatal hernia. Bones and chest wall: There is T11 compression fracture with vertebroplasty. Overlying soft tissues appear unremarkable. IMPRESSION: 1. Left hemidiaphragm elevation and left basilar atelectasis. 2. Moderate-sized hiatal hernia. Dictated by: Nkechi Begum M.D. on 03/17/2022 at 14:41 Approved by: Nkechi Begum M.D. on 03/17/2022 at 14:48
[2022-03-17 13:49] LABS: Add Manual Diff / Slide Review NO; Basophils Absolute Auto 100 /uL (0-100); Eosinophils Absolute Auto 200 /uL (0-450); Eosinophils Percent Auto 2.6 % (2-4); Hematocrit 39.8 % (36-46); Hemoglobin 13.6 g/dL (12.0-16.0); Lymphocytes Absolute Auto 2400 /uL (1100-4500); Lymphocytes Percent Auto 33.8 % (25-40); Mean Corpuscular HGB Conc 34.2 % (30-36); Mean Corpuscular Hemoglobin 31.6 PG (26-34); Mean Corpuscular Volume 92.3 fL (80-100); Monocytes Absolute Auto 600 /uL (0-900); Monocytes Percent Auto 8.3 % (3-14); Neutrophils Absolute Auto 3900 /uL (1500-7000); Neutrophils Percent Auto 54.3 % (50-75); Platelet Count 250 X10^3/uL (150-400); Red Blood Cell Count 4.31 X10^6/uL (4.0-5.2); Red Cell Distribution Width 13.2 % (11.6-14.8); White Blood Cell Count 7.2 X10^3/uL (4.5-11.0)
[2022-03-17 14:01] LABS: Alanine Aminotransferase 21 IU/L (<35); Albumin 4.4 g/dL (3.5-5.0); Albumin Globulin Ratio 1.4 (1.0-2.8); Alkaline Phosphatase 65 U/L (38-126); Aspartate Aminotransferase 33 IU/L (14-36); BUN Creatinine Ratio 25.9 (6-22); Bilirubin Total 0.5 mg/dL (0.2-1.3); Blood Urea Nitrogen 21 mg/dL (7-17); Calcium 10.8 mg/dL (8.4-10.2); Carbon Dioxide 28 mmol/L (22-32); Chloride 102 mmol/L (98-107); Creatine Kinase 21 U/L (30-135); Estimated Glomerular Filt Rate > 60 mL/min (>60); Globulin 3.1 g/dL (1.7-4.1); Glucose 110 mg/dL (80-110); HEMOLYSIS < 15 (0-50); Lipase 106 U/L (23-300); Sodium 138 mmol/L (137-145); Total Protein 7.5 g/dL (6.3-8.2)
[2022-03-17 14:13] LABS: Troponin I < 0.012 ng/mL (0.01-0.034)
--- NOTE | 2022-03-17 14:33 | ED_ITS ---
HPI - Chest Pain General Chief Complaint: Chest Pain Stated Complaint: Possible heart attack on thursday- ref by Time Seen by Provider: 03/17/22 14:33 Source: patient Mode of arrival: Ambulatory Limitations: no limitations History of Present Illness HPI narrative: 86-year-old woman with history of hypertension, osteoporosis with significant spine height loss to the point that her lower ribs rest on her superior iliac crests and cause chronic pain for which she uses tramadol, presents on the advice of the nurse from her primary care doctor's office. She apparently had an episode on Thursday. She woke up in the morning feeling her usual self, she does recall taking 2 tramadol and then going for an approximate 4 block walk feeling increasingly weak and unable to sit back on her walker as the theodore she had just purchased or on the seat. She very slowly work her way back to [employer] and into bed and spent the rest of the evening in bed. She states the weekend was fairly normal for her. She notes that she frequently takes naps and is otherwise doing fairly well. sHe notes that in the past she has had at least 2 nuclear medicine stress test and has always been told they were normal. She reports no fevers, cough, orthopnea, dyspnea, headaches, abdominal pain, nausea, vomiting, diarrhea, skin changes or rashes, cough. Related Data Home Medications Medication Instructions Recorded Confirmed True osteo PO 11/21/19 02/17/22 phenazopyridine [Azo Urinary Pain PO 11/21/19 02/17/22 Relief] true vision PO 11/21/19 02/17/22 aspirin 81 mg tablet,delayed 81 mg PO DAILY 12/15/19 02/17/22 release (Adult Aspirin Regimen) Prevegen PO 01/13/20 02/17/22 cholecalciferol (vitamin D3) 50 50 mcg PO DAILY 01/13/20 02/17/22 mcg (2,000 unit) capsule coenzyme Q10 200 mg capsule (Co 200 mg PO BID cap 01/13/20 02/17/22 Q-10) magnesium PO 01/13/20 02/17/22 vitamins A,C,L-hdtt-tulqhk 7,160 2 tab PO BID 01/13/20 02/17/22 unit-113 mg-100 unit tablet (PreserVision AREDS) Previous Rx's Medication Instructions Recorded clobetasol 0.05 % topical gel 1 applictn TOP DAILY #60 gram 06/13/20 denosumab 60 mg/mL subcutaneous 60 mg SUBCUT [id number] #1 ml 04/09/21 syringe (Prolia) meloxicam 7.5 mg tablet 7.5 mg PO BID #180 tab 10/07/21 hydroxyzine pamoate 25 mg capsule See Rx Instructions .ROUTE 10/10/21 .COMPLEX #90 capsule levothyroxine 88 mcg tablet See Rx Instructions .ROUTE 12/06/21 .COMPLEX #90 tablet atenolol 25 mg tablet See Rx Instructions .ROUTE 12/24/21 .COMPLEX #180 tab clobetasol 0.05 % topical ointment 1 applic TOPICAL DAILY #30 g 01/03/22 estradiol (Estrace) 1 g VAGINAL DAILY #42.5 g 01/03/22 amlodipine 5 mg tablet See Rx Instructions .ROUTE 02/06/22 .COMPLEX #180 tab tramadol 50 mg tablet 50 mg PO TID PRN #60 tab 02/17/22 Allergies Allergy/AdvReac Type Severity Reaction Status Date / Time latex [LATEX] Allergy Mild WELTS Verified 02/17/22 14:54 morphine [MORPHINE] Allergy Mild WELTS Verified 02/17/22 14:54 Sulfa (Sulfonamide Allergy Mild UNK Verified 02/17/22 14:54 Antibiotics) [SULFA (SULFONAMIDE ANTIBIOTICS)] alendronate sodium Allergy Unknown Verified 02/17/22 14:54 [From FOSAMAX] acetaminophen [From Percocet] AdvReac Intermediate altered Verified 02/17/22 14:54 mental status oxycodone [From Percocet] AdvReac Intermediate altered Verified 02/17/22 14:54 mental status PCN Allergy Mild HIVES Uncoded 02/17/22 14:54 Review of Systems Review of Systems Narrative: Remainder of complete review of systems is otherwise unremarkable except for that included in the HPI. Patient History Medical History (Updated 03/17/22 @ 15:15 by Judy Dorsey MD) Acute bilateral thoracic back pain Anxiety Aortic regurgitation Bilateral hip pain Bilateral leg cramps Body posture problem Cervical somatic dysfunction Chest wall pain, chronic Chicken pox Chronic back pain Chronic thoracic spine pain Colon polyps (~1994) Cranial somatic dysfunction Dizziness Fractures Generalized pruritus Hearing loss History of urinary incontinence (~2015) HTN (hypertension) Hypercalcemia Hypothyroidism (~1982) Insomnia Kyphosis Left elbow pain Leg cramps Loss of vision Low back pain with bilateral sciatica Macular degeneration (~2000) Measles Mumps Osteoporosis Pain of left breast Pelvic somatic dysfunction Polio (~194) Pulmonary embolism (~2004) Pulmonary nodule, right Rib pain on left side Rib pain on left side Rib pain on right side Scoliosis Segmental and somatic dysfunction of abdomen and other regions Segmental and somatic dysfunction of lumbar region Segmental and somatic dysfunction of rib cage Segmental and somatic dysfunction of sacral region Segmental and somatic dysfunction of thoracic region Stiff neck Thoracic spine fracture Transient ischemic attack (~1997) Upper extremity somatic dysfunction UTI (urinary tract infection) Vitiligo (~1975) Surgical History Anesthesia History of bladder suspension procedure (~1998) History of cataract removal with insertion of prosthetic lens (~2014) History of elbow surgery (~08/2015) History of hip replacement (~2004) History of kyphoplasty (~2002) History of surgery on right wrist (~10/14/19) Family History Father Suicide Mental health problem Mother Pancreatitis Brother No problems noted. Brother No problems noted. Sister Mental health problem Grandmother Senility Social History Smoking Status: Never smoker Smoking Status: Never smoker alcohol intake frequency: 0-2 drinks per day Alcohol type: wine Substance Use Type: does not use Exam Initial Vital Signs Initial Vital Signs: Vital Signs Temperature 98.1 F 03/17/22 13:20 Pulse Rate 70 03/17/22 13:20 Respiratory Rate 16 03/17/22 13:20 Blood Pressure 138/71 03/17/22 13:20 Pulse Oximetry 97 03/17/22 13:20 General: Healthy appearing, in no acute distress. Able to give a complete and coherent history. Well-nourished well-developed HEENT: Moist mucous membranes, normal sclera with reactive pupils, Neck: No JVD, supple Respiratory: Lungs are clear to auscultation, no wheezing no rales no rhonchi. Full and symmetrical air movement Cardiac: Regular rate and rhythm no murmurs no bruits Abdomen: Soft, nontender, good bowel tones, no flank pain Skin: Warm and dry, no rashes Neurologic: Grossly neurologically intact with no obvious asymmetries or abnormalities Extremities: No trauma, well perfused Psych: Cooperative, appropriate insight and affect Course Orders Ordered: ED Orders 03/17/22 13:24 XR chest 1V Stat EKG-12 Lead Stat 03/17/22 13:36 Complete Blood Count AUTO DIFF Stat Comprehensive Metabolic Panel Stat Lipase Stat Magnesium Stat Troponin & CK Cardiac Panel Stat 03/17/22 14:35 Urine Microscopic Stat Vital Signs Vital signs: Vital Signs - 8 hr 03/17/22 13:20 Temperature 98.1 F Pulse Rate 70 Respiratory Rate 16 Blood Pressure 138/71 Pulse Oximetry 97 MDM - Chest Pain Lab Data Result diagrams: 03/17/22 13:36 03/17/22 13:36 Labs: Lab Results 03/17/22 03/17/22 Range/Units 13:36 13:36 WBC 7.2 (4.5-11.0) X10^3/uL RBC 4.31 (4.0-5.2) X10^6/uL Hgb 13.6 (12.0-16.0) g/dL Hct 39.8 (36-46) % MCV 92.3 (80-100) fL MCH 31.6 (26-34) PG MCHC 34.2 (30-36) % RDW 13.2 (11.6-14.8) % Plt Count 250 (150-400) X10^3/uL Neut % (Auto) 54.3 (50-75) % Lymph % (Auto) 33.8 (25-40) % Carter % (Auto) 8.3 (3-14) % Eos % (Auto) 2.6 (2-4) % Baso % (Auto) 1.0 (0-2) % Neut # (Auto) 3900 (1300-5588) /uL Lymph # (Auto) 2400 (2876-4866) /uL Carter # (Auto) 600 (0-900) /uL Eos # (Auto) 200 (0-450) /uL Baso # (Auto) 100 (0-100) /uL Sodium 138 (137-145) mmol/L Potassium 4.0 (3.4-5.1) mmol/L Chloride 102 (98-107) mmol/L Carbon Dioxide 28 (22-32) mmol/L BUN 21 H (7-17) mg/dL Creatinine 0.81 (0.52-1.04) mg/dL Estimated GFR > 60 (>60) mL/min BUN/Creatinine Ratio 25.9 H (6-22) Glucose 110 (80-110) mg/dL Calcium 10.8 H (8.4-10.2) mg/dL Magnesium 2.0 (1.6-2.3) mg/dL Total Bilirubin 0.5 (0.2-1.3) mg/dL AST 33 (14-36) IU/L ALT 21 (<35) IU/L Alkaline Phosphatase 65 (38-126) U/L Total Creatine Kinase 21 L (30-135) U/L CK-MB (CK-2) TNP CK-MB (CK-2) Rel Index TNP Troponin I < 0.012 (0.01-0.034) ng/mL Total Protein 7.5 (6.3-8.2) g/dL Albumin 4.4 (3.5-5.0) g/dL Globulin 3.1 (1.7-4.1) g/dL Albumin/Globulin Ratio 1.4 (1.0-2.8) Lipase 106 (23-300) U/L Urine Dip Bedside Urine Glucose Negative Bedside Urine Bilirubin - Negative Bedside Urine Ketone - Negative Urine Specific Effie 1.025 Bedside Urine Occult Blood - Negative Bedside Urine pH 6.0 Bedside Urine Protein +/- 15 Bedside Urine Urobilinogen - Negative Bedside Urine Nitrite - Negative Bedside Urine Leukocytes + 70 Esterase Imaging Data Chest x-ray: Radiologist's Impression: FINDINGS:? ? Surgical changes and devices:? None.? ? Lungs and pleura:? Left hemidiaphragm elevation and left basilar atelectasis.? No pleural effusions or pneumothorax.? ? Mediastinum:? Mediastinal contours appear normal.? Heart size is normal.? Moderate-sized hiatal hernia. ? Bones and chest wall:? There is T11 compression fracture with vertebroplasty.? Overlying soft tissues appear unremarkable.? ? IMPRESSION:? ? 1. Left hemidiaphragm elevation and left basilar atelectasis. 2. Moderate-sized hiatal hernia.? ? ? Dictated by: Nkechi Begum M.D. on 03/17/2022 at 14:41? ?? ECG Data Interpretation: Sinus rhythm at a rate of 61 Left axis deviation with left bundle branch block No acute ischemic change MDM Narrative Medical decision making narrative: 86-year-old woman with a brief episode of chest pain, nausea, weakness after walking back from the turn laster and being unable to rest. No further symptoms over the interval 72 hours. Chest x-ray and lab worker unremarkable. No acute findings on her EKG and she feels that she is back to her baseline. At this point I do not have a complete explanation for the episode 4 days ago but there do not appear to be any lasting complications at this point. Reassurance is given. Recommended that she continue all of her usual medications and follow-up with her primary care physician. If she continues to have similar episode she may benefit from outpatient cardiac stress testing. She is safe for home discharge. Questions are answered. Discharge Plan Departure Patient Disposition: Home Clinical Impression: Weakness Chest pain Qualifiers: Chest pain type: unspecified Qualified Code(s): R07.9 - Chest pain, unspecified Instructions: DI for Atypical Chest Pain Activity Restrictions/Additional Instructions: Thank you for coming in today I am glad to let you know that your blood work, EKG, physical exam and chest x-ray are all reassuring today. I did not find any evidence of a recent nor ongoing heart attack or heart issue. Similarly, there was no evidence for infection, anemia, congestive heart failure or alternative findings that would require further workup for hospitalization today. I do encourage you to listen to your body and if your feeling tired, it is okay to take a nap. If you do have dramatically worsening symptoms, please feel free to return to the ER Prescriptions: No Action phenazopyridine PO 0RF True osteo PO 0RF true vision PO 0RF coenzyme Q10 [Co Q-10] 200 mg capsule 200 mg PO BID 0RF hydroxyzine pamoate 25 mg capsule See Rx Instructions .ROUTE .COMPLEX Qty: 90 1RF Dose Instruction: TAKE 1 CAPSULE BY MOUTH NIGHTLY FOR ITCHING Rx Instructions: TAKE 1 CAPSULE BY MOUTH NIGHTLY FOR ITCHING levothyroxine 88 mcg tablet See Rx Instructions .ROUTE .COMPLEX Qty: 90 3RF Dose Instruction: TAKE 1 TABLET BY MOUTH DAILY Rx Instructions: TAKE 1 TABLET BY MOUTH DAILY atenolol 25 mg tablet See Rx Instructions .ROUTE .COMPLEX Qty: 180 3RF Dose Instruction: TAKE 1 TABLET BY MOUTH TWICE DAILY Rx Instructions: TAKE 1 TABLET BY MOUTH TWICE DAILY amlodipine 5 mg tablet See Rx Instructions .ROUTE .COMPLEX Qty: 180 0RF Dose Instruction: TAKE 1 TABLET BY MOUTH TWICE DAILY FOR HIGH BLOOD PRESSURE Rx Instructions: TAKE 1 TABLET BY MOUTH TWICE DAILY FOR HIGH BLOOD PRESSURE aspirin [Adult Aspirin Regimen] 81 mg tablet,delayed release (DR/EC) 81 mg PO DAILY 0RF PreserVision AREDS [id number] tablet 2 tab PO BID 0RF Prevegen PO 0RF cholecalciferol (vitamin D3) 50 mcg (2,000 unit) capsule 50 mcg PO DAILY 0RF magnesium PO 0RF meloxicam 7.5 mg tablet 7.5 mg PO BID Qty: 180 1RF tramadol 50 mg tablet 50 mg PO TID PRN (Reason: pain) Qty: 60 0RF clobetasol 0.05 % gel 1 applictn TOP DAILY Qty: 60 2RF Prolia 60 mg/mL syringe 60 mg SUBCUT [id number] Qty: 1 5RF Rx Instructions: bring to clinic for injection clobetasol 0.05 % ointment 1 applic topical DAILY Qty: 30 2RF Rx Instructions: Apply to vulva twice weekly. estradiol [Estrace] 0.01 % (0.1 mg/gram) cream 1 g vaginal DAILY Qty: 42.5 0RF Rx Instructions: Apply to vulva daily for 2 weeks, then 2x weekly. Referrals: Josias Christine MD [Primary Care Provider] -
[2022-03-17 14:37] VITALS: PULSE 61
[2022-03-17 14:39] VITALS: BP 173/78; PULSE 59; RESP 15; O2SAT 97
[2022-03-17 15:00] VITALS: BP 162/75; PULSE 59; RESP 18; O2SAT 98
[2022-03-17 15:06] LABS: Bacteria Urine Many (>30); Culture Indicated Urine Cult Not Indicated; RBC Urine 0-1/HPF (0-5/HPF); Squamous Epithelial Cell Urine >30 /HPF (0-5/HPF); WBC Urine 30-100/HPF (0-5/HPF)
== END 2022-03-17 15:30 | disposition home or self-care (01) ==
PROVIDERS: Emergency Provider Emergency Medicine; Family Provider Family Medicine; PCP Family Medicine
DX: R53.1 Weakness (principal); R07.9 Chest pain, unspecified
CPT/HCPCS: 36415; 71045; 80053; 81003; 81015; 82550; 83690; 83735; 84484; 85025; 93005; 99283

== ENCOUNTER → 2022-04-17 14:46 | Outpatient (ROUT) | payer MEDICARE, SELFPAY ==
[2022-04-18 13:39] LABS: Fecal Immunochemical Test Negative (Negative)
== END ==
PROVIDERS: Family Provider Family Medicine; PCP Family Medicine; Visit Provider Family Medicine
DX: Z12.11 Encounter for screening for malignant neoplasm of colon (principal)
CPT/HCPCS: 82274

== ENCOUNTER → 2022-05-07 08:40 | Outpatient (CLI) | payer MEDICARE, SELFPAY | PROVIDERS: Family Provider Family Medicine; PCP Family Medicine; Referring Provider Family Medicine; Visit Provider Family Medicine | DX: E03.9 Hypothyroidism, unspecified (principal); S22.070D Wedge compression fracture of T9-T10 vertebra, subsequent encounter for fracture with routine healing | CPT/HCPCS: 36415; 84443 ==

== ENCOUNTER 2022-05-12 23:52 | Emergency (ER) | payer MEDICARE, SELFPAY ==
[2022-05-13] VITALS (11 sets, daily range): BP systolic 155–182; BP diastolic 68–84; PULSE 51–58; RESP 10–30; TEMP 36.1; O2SAT 93–99
--- NOTE | 2022-05-13 00:09 | DI.RAD.S_ITS ---
PROCEDURE: XR CHEST 1V INDICATIONS: chest pain TECHNIQUE: One view of the chest was acquired. COMPARISON: [facility], CR, XR CHEST 1V, 03/17/2022, 14:15. FINDINGS: Surgical changes and devices: None. Lungs and pleura: Elevation of the left hemidiaphragm is redemonstrated. A few linear left basilar opacities likely represent atelectasis or scarring. No pleural effusions or pneumothorax. Mediastinum: There is a large hiatal hernia redemonstrated. Heart size is normal. Bones and chest wall: No suspicious bony lesions. Overlying soft tissues appear unremarkable. IMPRESSION: 1. Large hiatal hernia and elevation of the left hemidiaphragm with probable atelectasis in the left lung base. 2. No definite acute cardiopulmonary disease. Dictated by: Will Begum M.D. on 05/13/2022 at 0:50 Approved by: Will Begum M.D. on 05/13/2022 at 0:52
[2022-05-13 00:30] LABS: Add Manual Diff / Slide Review NO; Basophils Absolute Auto 100 /uL (0-100); Basophils Percent Auto 0.8 % (0-2); Eosinophils Absolute Auto 300 /uL (0-450); Eosinophils Percent Auto 3.5 % (2-4); Hematocrit 39.3 % (36-46); Hemoglobin 13.6 g/dL (12.0-16.0); Lymphocytes Absolute Auto 3200 /uL (1100-4500); Lymphocytes Percent Auto 43.6 % (25-40); Mean Corpuscular HGB Conc 34.5 % (30-36); Mean Corpuscular Hemoglobin 31.1 PG (26-34); Mean Corpuscular Volume 90.1 fL (80-100); Monocytes Absolute Auto 500 /uL (0-900); Monocytes Percent Auto 7.4 % (3-14); Neutrophils Absolute Auto 3300 /uL (1500-7000); Neutrophils Percent Auto 44.7 % (50-75); Platelet Count 174 X10^3/uL (150-400); Red Blood Cell Count 4.36 X10^6/uL (4.0-5.2); Red Cell Distribution Width 14.1 % (11.6-14.8); White Blood Cell Count 7.4 X10^3/uL (4.5-11.0)
[2022-05-13 00:47] LABS: PTT Partial Thromboplastin Tim 33 SECONDS (26.4-36.2)
--- NOTE | 2022-05-13 02:17 | ED.CHESTPAIN ---
HPI - Chest Pain General Chief Complaint: Chest Pain Stated Complaint: CP Time Seen by Provider: 05/13/22 00:09 Source: patient and EMS Mode of arrival: EMS Limitations: no limitations History of Present Illness HPI narrative: This is an 86-year-old female with known history of hypertension, hypothyroidism and right carotid stenosis of 50-70%. Patient states she is had chest pain intermittently the 1st episode was she had 2 episodes today in the evening she states it has been intermittent she describes it over starting in the roof of her mouth her jaw and then extending to her chest she describes it as a cramping sensation. She denies any shortness of breath, no diaphoresis. She states it is always at rest she did have some nausea with it. She states the symptoms onset from roof of her mouth her chest take about 5 seconds the episode tonight lasted about 30 minutes most recently about 2200. Patient took aspirin 324 mg, Tylenol PM her evening pills and tramadol and symptoms resolved after about 30 minutes. She is not had any new swelling in her extremities. She has seen cardiology with Dr. King out of [place], she is had a chemical stress test about 4 years ago which was negative she is never had any cardiac catheterization, stents or other interventions. The last time she had similar symptoms she was told to double her Co Q10 which caused them to resolve and not have any more episodes similar to this this was several years ago. She is on thyroid, atenolol and had this increased to 50 mg in the morning 2 days after her symptoms on , 25 mg in the evening, she is on amlodipine 5 mg twice daily, antihistamine and she takes an aspirin 81 mg daily. Her primary care physician is Dr. Christine. Related Data Home Medications Medication Instructions Recorded Confirmed True osteo PO 11/21/19 04/04/22 phenazopyridine [Azo Urinary Pain PO 11/21/19 04/04/22 Relief] true vision PO 11/21/19 04/04/22 aspirin 81 mg tablet,delayed 81 mg PO DAILY 12/15/19 04/04/22 release (Adult Aspirin Regimen) Prevegen PO 01/13/20 04/04/22 cholecalciferol (vitamin D3) 50 50 mcg PO DAILY 01/13/20 04/04/22 mcg (2,000 unit) capsule coenzyme Q10 200 mg capsule (Co 200 mg PO BID 01/13/20 04/04/22 Q-10) vitamins A,C,H-lxtm-raecot 7,160 2 tab PO BID 01/13/20 04/04/22 unit-113 mg-100 unit tablet (PreserVision AREDS) Previous Rx's Medication Instructions Recorded clobetasol 0.05 % topical gel 1 applictn topical DAILY Vulvar 06/13/20 irritation #60 grams clobetasol 0.05 % topical ointment 1 applic topical DAILY lichen 01/03/22 sclerosis #30 grams estradiol 0.01% (0.1 mg/gram) 1 g vaginal DAILY lichen sclerosis 01/03/22 vaginal cream (Estrace) #42.5 grams amlodipine 5 mg tablet See Rx Instructions .Route 02/06/22 .COMPLEX #180 tabs thyroid (pork) 60 mg tablet 60 mg PO DAILY #60 tabs 04/04/22 (Rodney Thyroid) hydroxyzine pamoate 25 mg capsule See Rx Instructions .Route 04/10/22 .COMPLEX #90 caps tramadol 50 mg tablet 50 mg PO TID PRN pain #60 tabs 05/05/22 denosumab 60 mg/mL subcutaneous 60 mg SUBCUT [id number] #1 mL 05/08/22 syringe (Prolia) atenolol 25 mg tablet See Rx Instructions .Route 05/09/22 .COMPLEX #270 tabs Allergies Allergy/AdvReac Type Severity Reaction Status Date / Time latex [LATEX] Allergy Mild WELTS Verified 04/04/22 11:29 morphine [MORPHINE] Allergy Mild WELTS Verified 04/04/22 11:29 Sulfa (Sulfonamide Allergy Mild UNK Verified 04/04/22 11:29 Antibiotics) [SULFA (SULFONAMIDE ANTIBIOTICS)] alendronate sodium Allergy Unknown Verified 04/04/22 11:29 [From FOSAMAX] acetaminophen [From Percocet] AdvReac Intermediate altered Verified 04/04/22 11:29 mental status oxycodone [From Percocet] AdvReac Intermediate altered Verified 04/04/22 11:29 mental status PCN Allergy Mild HIVES Uncoded 02/17/22 14:54 Review of Systems Review of Systems ROS Unobtainable: All systems reviewed & are unremarkable except as noted in HPI and below Patient History Medical History Acute bilateral thoracic back pain Anxiety Aortic regurgitation Bilateral hip pain Bilateral leg cramps Body posture problem Cervical somatic dysfunction Chest wall pain, chronic Chicken pox Chronic back pain Chronic back pain Chronic thoracic spine pain Colon polyps (~1994) Cranial somatic dysfunction Dizziness Fractures Generalized pruritus Hearing loss History of urinary incontinence (~2015) HTN (hypertension) Hypercalcemia Hypothyroidism (~1982) Insomnia Kyphosis Left elbow pain Leg cramps Loss of vision Low back pain with bilateral sciatica Macular degeneration (~2000) Measles Mumps Osteoporosis Pain of left breast Pelvic somatic dysfunction Polio (~1945) Pulmonary nodule, right Rib pain on left side Rib pain on left side Rib pain on right side Scoliosis Segmental and somatic dysfunction of abdomen and other regions Segmental and somatic dysfunction of lumbar region Segmental and somatic dysfunction of rib cage Segmental and somatic dysfunction of sacral region Segmental and somatic dysfunction of thoracic region Stiff neck Thoracic spine fracture Transient ischemic attack (~1997) Upper extremity somatic dysfunction UTI (urinary tract infection) Vitiligo (~1975) Surgical History Anesthesia History of bladder suspension procedure (~1998) History of cataract removal with insertion of prosthetic lens (~2014) History of elbow surgery (~08/2015) History of hip replacement (~2004) History of kyphoplasty (~2002) History of surgery on right wrist (~10/14/19) Family History Father Suicide Mental health problem Mother Pancreatitis Brother No problems noted. Brother No problems noted. Sister Mental health problem Grandmother Senility Social History Smoking Status: Never smoker Smoking Status: Never smoker alcohol intake frequency: 0-2 drinks per day Alcohol type: wine Substance Use Type: does not use Exam Narrative Exam Narrative: GENERAL: Alert and oriented x three, female in mild distress HEENT: Head normocephalic, atraumatic, EOMI, pupils reactive, face symmetric, moist mucous membranes NECK: Supple, full range of motion CARDIOVASCULAR: Regular rate and rhythm without murmurs, rubs or gallops. RESPIRATORY: Breath sounds equal bilaterally, no wheezes rales or rhonchi. ABDOMEN: Soft, nontender. Normoactive bowel sounds all 4 quadrants. No guarding or rebound, rigidity, no mass : No CVA tenderness EXTREMITIES: Normal range of motion, no clubbing or edema. Neurovascularly intact NEUROLOGICAL: Cranial nerves II through XII grossly intact. Moving all extremities SKIN: Warm, dry, no petechiae, no rashes or lesions. Initial Vital Signs Initial Vital Signs: Vital Signs Pulse Rate 56 L 05/13/22 00:03 Respiratory Rate 30 H 05/13/22 00:03 Pulse Oximetry 97 05/13/22 00:03 Course Orders Ordered: ED Orders 05/13/22 00:09 XR chest 1V Stat Complete Blood Count AUTO DIFF Stat Comprehensive Metabolic Panel Stat Lipase Stat NT-proBNP (BNP-Adult 18+) Stat Partial Thromboplastin Time Stat Prothrombin Time INR Stat Troponin & CK Cardiac Panel Stat 05/13/22 02:25 Trop I [Troponin I] Stat 05/13/22 23:54 EKG-12 Lead Stat Discontinued Medications Aspirin (Aspirin 81 Mg Chew Tab) 324 mg PO NOW ONE Stop: 05/13/22 00:10 Last Admin: 05/13/22 00:36 Dose: Not Given Documented By: Reevaluation(s) Reevaluation #1: Patient continues to be asymptomatic. Discussed today's findings. She was offered observation but very politely defers. Time: 03:40 Vital Signs Vital signs: Vital Signs - 8 hr 05/13/22 00:04 05/13/22 00:03 05/13/22 00:04 Temperature 97.0 F L Pulse Rate 58 L 56 L Respiratory Rate 20 30 H Blood Pressure 175/79 H 168/77 H Pulse Oximetry 97 97 Oxygen Delivery Method Room Air 05/13/22 00:04 05/13/22 00:30 05/13/22 00:30 Temperature Pulse Rate 56 L 55 L Respiratory Rate 12 11 L Blood Pressure 181/81 H Pulse Oximetry 96 94 Oxygen Delivery Method 05/13/22 01:00 05/13/22 01:00 05/13/22 01:30 Temperature Pulse Rate 53 L Respiratory Rate 10 L Blood Pressure 168/77 H 165/74 H Pulse Oximetry 95 Oxygen Delivery Method 05/13/22 01:30 05/13/22 02:00 05/13/22 02:00 Temperature Pulse Rate 53 L 54 L Respiratory Rate 11 L Blood Pressure 161/75 H Pulse Oximetry 94 94 Oxygen Delivery Method 05/13/22 02:30 05/13/22 02:30 05/13/22 03:00 Temperature Pulse Rate 55 L 54 L Respiratory Rate 12 Blood Pressure 182/84 H Pulse Oximetry 97 94 Oxygen Delivery Method 05/13/22 03:01 05/13/22 03:01 05/13/22 03:21 Temperature Pulse Rate 54 L Respiratory Rate 15 Blood Pressure 176/75 H 177/80 H Pulse Oximetry 93 Oxygen Delivery Method 05/13/22 03:21 05/13/22 03:30 05/13/22 03:30 Temperature Pulse Rate 57 L 51 L Respiratory Rate 25 H 14 Blood Pressure 155/68 H Pulse Oximetry 99 93 Oxygen Delivery Method MDM - Chest Pain Lab Data Result diagrams: 05/12/22 23:45 05/12/22 23:45 Labs: Lab Results 05/12/22 05/12/22 05/12/22 Range/Units 23:45 23:45 23:45 WBC 7.4 (4.5-11.0) X10^3/uL RBC 4.36 (4.0-5.2) X10^6/uL Hgb 13.6 (12.0-16.0) g/dL Hct 39.3 (36-46) % MCV 90.1 (80-100) fL MCH 31.1 (26-34) PG MCHC 34.5 (30-36) % RDW 14.1 (11.6-14.8) % Plt Count 174 (150-400) X10^3/uL Neut % (Auto) 44.7 L (50-75) % Lymph % (Auto) 43.6 H (25-40) % Adams % (Auto) 7.4 (3-14) % Eos % (Auto) 3.5 (2-4) % Baso % (Auto) 0.8 (0-2) % Neut # (Auto) 3300 (7050-6483) /uL Lymph # (Auto) 3200 (1627-2152) /uL Adams # (Auto) 500 (0-900) /uL Eos # (Auto) 300 (0-450) /uL Baso # (Auto) 100 (0-100) /uL PT 11.0 (10.1-12.7) SECONDS INR 1.0 (0.9-1.3) APTT 33 (26.4-36.2) SECONDS Sodium 140 (137-145) mmol/L Potassium 4.0 (3.4-5.1) mmol/L Chloride 103 (98-107) mmol/L Carbon Dioxide 27 (22-32) mmol/L BUN 26 H (7-17) mg/dL Creatinine 0.71 (0.52-1.04) mg/dL Estimated GFR > 60 (>60) mL/min BUN/Creatinine Ratio 36.6 H (6-22) Glucose 104 (80-110) mg/dL Calcium 10.4 H (8.4-10.2) mg/dL Total Bilirubin 0.4 (0.2-1.3) mg/dL AST 33 (14-36) IU/L ALT 21 (<35) IU/L Alkaline Phosphatase 51 (38-126) U/L Total Creatine Kinase 31 (30-135) U/L CK-MB (CK-2) TNP CK-MB (CK-2) Rel Index TNP Troponin I < 0.012 (0.01-0.034) ng/mL NT-Pro-B Natriuret Pep 164 (<450) pg/mL Total Protein 7.3 (6.3-8.2) g/dL Albumin 4.3 (3.5-5.0) g/dL Globulin 3.0 (1.7-4.1) g/dL Albumin/Globulin Ratio 1.4 (1.0-2.8) Lipase 150 (23-300) U/L 05/13/22 Range/Units 02:25 WBC (4.5-11.0) X10^3/uL RBC (4.0-5.2) X10^6/uL Hgb (12.0-16.0) g/dL Hct (36-46) % MCV (80-100) fL MCH (26-34) PG MCHC (30-36) % RDW (11.6-14.8) % Plt Count (150-400) X10^3/uL Neut % (Auto) (50-75) % Lymph % (Auto) (25-40) % Adams % (Auto) (3-14) % Eos % (Auto) (2-4) % Baso % (Auto) (0-2) % Neut # (Auto) (1008-0532) /uL Lymph # (Auto) (9213-0293) /uL Adams # (Auto) (0-900) /uL Eos # (Auto) (0-450) /uL Baso # (Auto) (0-100) /uL PT (10.1-12.7) SECONDS INR (0.9-1.3) APTT (26.4-36.2) SECONDS Sodium (137-145) mmol/L Potassium (3.4-5.1) mmol/L Chloride (98-107) mmol/L Carbon Dioxide (22-32) mmol/L BUN (7-17) mg/dL Creatinine (0.52-1.04) mg/dL Estimated GFR (>60) mL/min BUN/Creatinine Ratio (6-22) Glucose (80-110) mg/dL Calcium (8.4-10.2) mg/dL Total Bilirubin (0.2-1.3) mg/dL AST (14-36) IU/L ALT (<35) IU/L Alkaline Phosphatase (38-126) U/L Total Creatine Kinase (30-135) U/L CK-MB (CK-2) CK-MB (CK-2) Rel Index Troponin I < 0.012 (0.01-0.034) ng/mL NT-Pro-B Natriuret Pep (<450) pg/mL Total Protein (6.3-8.2) g/dL Albumin (3.5-5.0) g/dL Globulin (1.7-4.1) g/dL Albumin/Globulin Ratio (1.0-2.8) Lipase (23-300) U/L Imaging Data Chest x-ray: Radiologist's Impression: [address] [address] XRay Report Signed Patient: Bettie Patel MR#: [id number] : 1935 Acct:[id number] Age/Sex: 86 / F Date of Service: 05/13/22 Loc: ED Accession Number: [id number] ?? Procedure: XR chest 1V Ordering Provider: Chrissy Ramos D.O. PROCEDURE:? XR CHEST 1V ? INDICATIONS:? chest pain ? TECHNIQUE:? One view of the chest was acquired.? ? COMPARISON:? [facility], CR, XR CHEST 1V, 03/17/2022, 14:15. ? FINDINGS:? ? Surgical changes and devices:? None.? ? Lungs and pleura:? Elevation of the left hemidiaphragm is redemonstrated.? A few linear left basilar opacities likely represent atelectasis or scarring.? No pleural effusions or pneumothorax.? ? Mediastinum:? There is a large hiatal hernia redemonstrated.? Heart size is normal.? ? Bones and chest wall:? No suspicious bony lesions.? Overlying soft tissues appear unremarkable.? ? IMPRESSION:? ? 1.? Large hiatal hernia and elevation of the left hemidiaphragm with probable atelectasis in the left lung base. ? 2. No definite acute cardiopulmonary disease. ? ? Dictated by: Will Begum M.D. on 05/13/2022 at 0:50 ? ? Approved by: Will Begum M.D. on 05/13/2022 at 0:52 ECG Data Attestation: I personally reviewed and interpreted this ECG as follows: Interpretation: Left bundle branch block, sinus bradycardia. Rate of 57, SC 192, QRS of 152 and QTC of 486. No acute ST changes noted. Patient has prior from 03/17/2022 with no acute change. [facility] Narrative Medical decision making narrative: This is an 86-year-old with complaint of chest pain which is somewhat atypical that it only occurs at rest in the evening and starts in the works of her mouth and then radiates to her chest. She describes it as cramping, no shortness of breath. She has seen cardiology in the past she would a chemical stress test 4 years ago, she is never had cardiac catheterization she is on a beta-param, calcium channel param and aspirin daily. She is on Co Q10 as well and states that the last time she had similar episodes like this they had her double her Co Q10 and they resolved. She has felt anxious lately. Her EKG shows left bundle-branch block with no acute changes, she is a large left hiatal hernia. CBC and CMP do not show clear change. Troponin x2 is negative. BNP is negative. COVID swab was not obtained but symptoms seem very atypical and patient is comfortable with this. Discussed her findings, recommended cardiac observation patient defers. She has seen Cardiology she states she was told it she does not have coronary artery disease we discussed that she does not appear to be having any ACS or heart attack today, but would recommend observation. She does have a large hiatal heard pick cause chest discomfort but unlikely to cause the discomfort in the roof of her mouth. Patient feels comfortable with plan for follow-up outpatient, she is established with a belt and link assembly supervisor and asked to re-contact them for follow up. Discharge Plan Departure Patient Disposition: Home Clinical Impression: Atypical chest pain Instructions: DI for Atypical Chest Pain Activity Restrictions/Additional Instructions: Please follow up with your belt and link assembly supervisor for recheck regarding your atypical chest pain. Please call for an appointment. Your imaging does show a large hiatal hernia. It may be helpful to follow up and possibly have an EGD for this. Please continue home medications as prescribed. You may return at any time for recheck, having new or worsening chest pain, shortness of breath, sweatiness, passing, persistent vomiting or other concerning symptoms. Prescriptions: No Action phenazopyridine PO True osteo PO true vision PO coenzyme Q10 [Co Q-10] 200 mg capsule 200 mg PO BID amlodipine 5 mg tablet See Rx Instructions .ROUTE .COMPLEX Qty: 180 0RF Dose Instruction: TAKE 1 TABLET BY MOUTH TWICE DAILY FOR HIGH BLOOD PRESSURE Rx Instructions: TAKE 1 TABLET BY MOUTH TWICE DAILY FOR HIGH BLOOD PRESSURE hydroxyzine pamoate 25 mg capsule See Rx Instructions .ROUTE .COMPLEX Qty: 90 0RF Dose Instruction: TAKE 1 CAPSULE BY MOUTH NIGHTLY FOR ITCHING SANDOZ ONLY Rx Instructions: TAKE 1 CAPSULE BY MOUTH NIGHTLY FOR ITCHING SANDOZ ONLY tramadol 50 mg tablet 50 mg PO TID PRN (Reason: pain) Qty: 60 0RF Prolia 60 mg/mL syringe 60 mg SUBCUT [id number] Qty: 1 5RF Rx Instructions: bring to clinic for injection aspirin [Adult Aspirin Regimen] 81 mg tablet,delayed release (DR/EC) 81 mg PO DAILY PreserVision AREDS [id number] tablet 2 tab PO BID Prevegen PO cholecalciferol (vitamin D3) 50 mcg (2,000 unit) capsule 50 mcg PO DAILY clobetasol 0.05 % gel 1 applictn TOP DAILY Qty: 60 2RF clobetasol 0.05 % ointment 1 applic topical DAILY Qty: 30 2RF Rx Instructions: Apply to vulva twice weekly. estradiol [Estrace] 0.01 % (0.1 mg/gram) cream 1 g vaginal DAILY Qty: 42.5 0RF Rx Instructions: Apply to vulva daily for 2 weeks, then 2x weekly. thyroid (pork) [Rodney Thyroid] 60 mg tablet 60 mg PO DAILY Qty: 60 0RF atenolol 25 mg tablet See Rx Instructions .ROUTE .COMPLEX Qty: 270 3RF Dose Instruction: TAKE 1 TABLET BY MOUTH TWICE DAILY Rx Instructions: TAKE 2 TABLETs BY MOUTH each morning and t 1 tablet by mouth in the evening Referrals: Teofilo Toledo MD [Non-Staff] - Josias Christine MD [Primary Care Provider] - Visit Report Forms: Patient Portal/API
[2022-05-13 02:24] LABS: Chloride 103 mmol/L (98-107)
[2022-05-13 02:27] LABS: Alanine Aminotransferase 21 IU/L (<35); Albumin 4.3 g/dL (3.5-5.0); Albumin Globulin Ratio 1.4 (1.0-2.8); Alkaline Phosphatase 51 U/L (38-126); Aspartate Aminotransferase 33 IU/L (14-36); BUN Creatinine Ratio 36.6 (6-22); Bilirubin Total 0.4 mg/dL (0.2-1.3); Blood Urea Nitrogen 26 mg/dL (7-17); Calcium 10.4 mg/dL (8.4-10.2); Carbon Dioxide 27 mmol/L (22-32); Creatine Kinase 31 U/L (30-135); Estimated Glomerular Filt Rate > 60 mL/min (>60); Glucose 104 mg/dL (80-110); HEMOLYSIS 28 (0-50); Lipase 150 U/L (23-300); Sodium 140 mmol/L (137-145); Total Protein 7.3 g/dL (6.3-8.2)
[2022-05-13 02:39] LABS: NT-proBNP (BNP-Adult 18+) 164 pg/mL (<450); Troponin I < 0.012 ng/mL (0.01-0.034)
[2022-05-13 02:57] LABS: Troponin I < 0.012 ng/mL (0.01-0.034)
== END 2022-05-13 03:57 | disposition home or self-care (01) ==
PROVIDERS: Emergency Provider Emergency Medicine; Family Provider Family Medicine; PCP Family Medicine
DX: R07.89 Other chest pain (principal); Z79.82 Long term (current) use of aspirin
CPT/HCPCS: 71045; 80053; 82550; 83690; 83880; 84484; 85025; 85610; 85730; 93005; 93010; 99283; 99284

== ENCOUNTER → 2022-05-27 18:19 | Outpatient (CLI) | payer MEDICARE, SELFPAY ==
--- NOTE | 2022-05-27 18:27 | DI.RAD.S_ITS ---
PROCEDURE: XR TOE RT MIN 2V INDICATIONS: R small toe injury TECHNIQUE: 3 views of the 5th toe(s) acquired. COMPARISON: None. FINDINGS: Bones: There is a mildly displaced, comminuted fracture seen involving the distal aspect of the proximal phalanx of the 5th toe. No additional fractures are detected. Soft tissues: No suspicious soft tissue densities. IMPRESSION: 5th toe fracture. Dictated by: Dipak Rodriguez M.D. on 05/28/2022 at 8:22 Approved by: Dipak Rodriguez M.D. on 05/28/2022 at 8:24
== END ==
PROVIDERS: Family Provider Family Medicine; PCP Family Medicine; Referring Provider Physician Assistant; Visit Provider Physician Assistant
DX: S92.511A Displaced fracture of proximal phalanx of right lesser toe(s), initial encounter for closed fracture (principal); X58.XXXA Exposure to other specified factors, initial encounter
CPT/HCPCS: 73660

== ENCOUNTER 2022-06-03 08:59 | Day surgery (SDC) | payer MEDICARE, SELFPAY ==
[2022-06-03] VITALS (7 sets, daily range): BP systolic 145–159; BP diastolic 54–75; PULSE 61–75; RESP 15–21; TEMP 35.8–37.1; O2SAT 93–98; BMI 25.4
--- NOTE | 2022-06-03 | PATH_ITS ---
[facility] Accession Number: [id number] . 01 Material submitted: . PART A: gastrointestinal site - GASTRIC BIOPSIES PART B: esophagus, E-G Junction - GE JUNCTION BIOPSY . 01 Diagnosis: A. Stomach, Biopsies: Antral mucosa with mild chronic gastritis. Negative for Helicobacter organisms by immunohistochemistry. Negative for intestinal metaplasia. Negative for dysplasia and malignancy. . B. Gastroesophageal Junction, Biopsy: Squamous epithelium with no diagnostic abnormality. Intraepithelial eosinophils are not increased. Scant detached columnar epithelium, negative for intestinal metaplasia. Negative for dysplasia and malignancy. [facility] 06/05/2022 1355 Local . 01 Electronically signed: . Abril Persaud MD, Pathologist NPI- [id number] . 01 Gross description: . Part A: GASTRIC BIOPSIES: Received in formalin is 1 fragment(s) of powell, soft tissue measuring 0.5 x 0.2 x 0.1 cm submitted entirely in 1 cassette(s) Part B: GE JUNCTION BIOPSY: Received in formalin are 3 fragment(s) of powell, soft tissue measuring 0.1 x 0.1 x 0.1 cm to 0.3 x 0.2 x 0.1 cm submitted entirely in 1 cassette(s) /[facility] 06/04/2022 0054 Local . 01 Microscopic: . A. An immunohistochemical stain was performed to evaluate for Helicobacter organisms and is negative. The control stain showed appropriate reactivity. . * This test was developed and its performance characteristics determined by [facility]. It has not been cleared or approved by the U.S. Food and Drug Administration. The FDA has determined that such clearance or approval is not necessary. This test is used for clinical purposes. It should not be regarded as investigational or for research. . 01 Pathologist provided ICD-10: K44.9 . 01 CPT . 173066, 164379, H71243 Specimen Comment: A courtesy copy of this report has been sent to [phone] Performed at: 01 [facility] [address] [place] [address] [id number] MD Will Tran MD Phone: [phone]
[2022-06-03 09:36] LABS: COVID19 -Nasal RAPID Negative (Negative)
[2022-06-03] MEDS: LACTATED RINGERS 1,000 ML 200 ML IV (09:45)
--- NOTE | 2022-06-03 09:45 | PM.PREOP ---
Pre-operative Note Interval Note History & Physical reviewed/Exam performed by Physician: Yes Changes to H&P: No
--- NOTE | 2022-06-03 10:03 | PM.OP.EGD ---
Operative Date/Time/Diagnoses Date of procedure: 06/03/22 Time of procedure: 10:03 Pre-op diagnosis: Nausea, hiatal hernia Post-op diagnosis: other (Gastritis, hiatal hernia) Procedure & Clinicians Study performed: Esophagoduodenoscopy Same procedure as scheduled: Yes Indications: Chronic nausea Surgeon: Misha Vernon Procedure Notes Procedure in detail: Patient placed in left lateral decubitus position. Time out was performed. Procedural sedation was administered with Versed and Fentanyl. A bite block was placed. the scope was inserted into the mouth and advanced through the esophagus and into the stomach. The stomach was notable for diffuse mild gastritis without distinct ulceration. The pylorus was intubated and the duodenum was normal to the 2nd portion. The scope was retroflexed within the stomach there is a moderate size hiatal hernia. Z-line was observed at 33 cm from the incisors. Multiple biopsies of the stomach were taken using the is Jumbo forceps labeled gastric biopsy,. Next the GE junction was sampled using the Jumbo forceps. There were no gastric masses or distinct ulceration. The scope was withdrawn into the esophagus the Z line was seen at 40 cm from the incisions. There was no Mistry's esophagitis or masses or strictures. Stomach was desufflated and scope removed. Patient tolerated procedure well. Specimen(s): other (Gastric biopsy, GE junction biopsy) Complications: none Impression: Gastritis Post-procedure Recommendations: Start medication(s) (Omeprazole 20 mg daily) Disposition: same day surgery
[2022-06-03] MEDS: MIDAZOLAM 5 MG/5 ML VIAL IV (10:04)
[2022-06-03] MEDS: LIDOCAINE 4% SOLN 50 ML 20 ML TOP (10:04)
[2022-06-03] MEDS: fentaNYL 250 MCG/5 ML INJ IV (10:05)
== END 2022-06-03 10:42 | disposition home or self-care (01) ==
PROVIDERS: Family Provider Family Medicine; PCP Family Medicine; Referring Provider Surgery; Visit Provider Surgery
PROC: 0DJ08ZZ Inspection of Upper Intestinal Tract, Via Natural or Artificial Opening Endoscopic (ICD-10-PCS; CPT 43235; principal; 2022-06-03 10:00)
DX: K29.50 Unspecified chronic gastritis without bleeding (principal); Z20.822 Contact with and (suspected) exposure to COVID-19; K44.9 Diaphragmatic hernia without obstruction or gangrene
CPT/HCPCS: 43239; 87635; C9803; J2250; J3010

== ENCOUNTER → 2022-07-15 10:13 | Outpatient (CLI) | payer MEDICARE, SELFPAY ==
[2022-07-15 11:37] LABS: COVID19 -Nasal RAPID Negative (Negative)
== END ==
PROVIDERS: Family Provider Family Medicine; PCP Family Medicine; Visit Provider Physical Medicine & Rehabilitation
DX: Z20.822 Contact with and (suspected) exposure to COVID-19 (principal)
CPT/HCPCS: 87635; C9803

== ENCOUNTER 2022-07-17 09:13 | Outpatient (CLI) | payer MEDICARE, SELFPAY ==
[2022-07-17] VITALS (10 sets, daily range): BP systolic 136–188; BP diastolic 64–82; PULSE 58–63; RESP 12–23; TEMP 36.4; O2SAT 96–99
--- NOTE | 2022-07-17 09:14 | DI.RAD.S_ITS ---
PROCEDURE: PAIN C/T TRANFORAMINAL INJECT INDICATIONS: SPINAL STENOSIS COMPARISON: None. FINDINGS: Fluoroscopic spot filming was performed to verify placement of spinal needles at the lower thoracic level(s), as labeled on the films. Appropriate location(s) of the needle tip(s) was confirmed by injection of iodinated contrast. IMPRESSION: Needle placement as above. Dictated by: Emmie Noriega M.D. on 07/17/2022 at 13:34 Transcribed by: BECKI on 07/17/2022 at 13:34 Approved by: Emmie Noriega M.D. on 07/17/2022 at 16:33
[2022-07-17] MEDS: IOPAMIDOL 15 ML VIAL 3 ML INJ (10:43)
[2022-07-17] MEDS: BUPIVACAINE 0.25% (PF) VIAL 2 ML INJ (10:43)
[2022-07-17] MEDS: DEXAMETHASONE 10 MG/ML VIAL 30 MG INJ (10:43)
[2022-07-17] MEDS: MIDAZOLAM 2 MG/2 ML VIAL IV (10:46)
--- NOTE | 2022-07-17 11:01 | P.PCN_ITS ---
Date/Time/Diagnoses Date of procedure: 07/17/22 Time of procedure: 11:01 Pre-procedure diagnosis: 1. FORAMINAL STENOSIS WITH LE SYMPTOMS Post-procedure diagnosis: same Procedure Notes Procedure: 1. FLUOROSCOPICALLY GUIDED CONTRAST CONTROLLED TRANSFORAMINAL EPIDURAL STEROID INJECTION - LEFT T0/11 TFESI Indications: Bettie is referred by Dr. Christine for treatment of Foraminal Stenosis with Right thoracic Symptoms Physician: Jamie Kirkpatrick Total Fluoroscopy time (seconds): 13 Total sedation minutes: 13 Complications: none Procedure in detail & Post-procedure care: FINDINGS Foraminal Nerve Root Compression secondary to disc disease and facet hypertrophy DESCRIPTION OF PROCEDURE Following review of allergy and review of potential side effects and complications, including, but not necessarily limited to, infection, allergic reaction, local tissue breakdown, stroke, temporary or permanent nerve injury, paralysis, and possible , the patient indicated that the patient understood and agreed to proceed. An informed consent document was signed by the patient, witnessed by a nurse, and placed in the patient's chart. Additionally, other treatment options including medications, modalities, and physical therapy were reviewed with the patient. After review of previous anaesthesic history and IV conscious sedation the patient was deemed safe to proceed with today?s procedure with IV conscious sedation as ASA class II designation. Safety time-out was performed to confirm patient ID, procedure to be performed and site of procedure. IV sedation was accomplished with a combination of 2mg of Versed was administered by the RN after DO order, titrated to patient comfort during the course of the procedure while the patient remained responsive to all verbal commands In the prone position following sterile prep and drape of the lumbar region, the left T10/T11 posterior neuroforamen was identified fluoroscopically. The skin was anesthetized via a 25-gauge 1.5-inch needle with 1% lidocaine solution. At this point, a 25-gauge 3.5-inch spinal needle was atraumatically introduced and advanced under fluoroscopic guidance through the posterior left T10/T11 neuroforamen to approximately the anterior aspect of the canal. Depth was confirmed on lateral view. Following negative aspiration, injection of approximately 1.5cc of Isovue 200 under live fluoroscopy in the AP view confirmed excellent flow along the nerve root, into the epidural space without vascular or intrathecal uptake observed Radiological data, including multiple fluoroscopic views reveal the needle placement in the left T10/T11 posterior neuroforamen. Subsequent views show flow of contrast material flowing superiorly and inferiorly along the nerve root confirming epidural flow. Subsequently, a test dose of 1.5cc of 1% lidocaine solution was administered and patient was observed for signs or symptoms of complications, including abdominal pain, shortness of breath, bilateral upper or lower extremity weakness, nausea and vomiting, prior to steroid injection. At this point, a total of 3cc or 30mg of dexamethasone was injected without incident. The procedure tolerated the procedure well without signs or symptoms of complications prior to transfer to the recovery area continued monitoring without incident. The patient was then transferred to the recovery area where they were observed for an appropriate time after the injection. The patient reported a VAS score of 7 prior to the procedure and a post- procedure VAS of 0. POST OP INSTRUCTIONS The patient was provided a Pain Log to continue to record their response to the target-specific procedure prior to follow-up visit with their referring physician. Additionally, specific post-injection care instructions and a contact number to our office were provided if concerns arise regarding possible complications associated with the procedure are suspected.
== END 2022-07-17 11:20 | disposition home or self-care (01) ==
LOC: RAD 09:13
PROVIDERS: Family Provider Family Medicine; PCP Family Medicine; Referring Provider Physical Medicine & Rehabilitation; Visit Provider Physical Medicine & Rehabilitation
DX: M48.04 Spinal stenosis, thoracic region (principal); M51.14 Intervertebral disc disorders with radiculopathy, thoracic region
CPT/HCPCS: 64479; 99152; J1100; J2250; J3490

== ENCOUNTER → 2022-08-11 10:41 | Outpatient (CLI) | payer MEDICARE, SELFPAY ==
--- NOTE | 2022-08-11 10:43 | DI.RAD.S_ITS ---
PROCEDURE: XR LUMBAR SPINE 2-3V INDICATIONS: Possible lumbar fracture TECHNIQUE: 3 views of the lumbar spine were acquired. COMPARISON: [facility], MR, MR THORACIC SPINE WO CON, 02/22/2022, 10:32. [facility], MR, MR LUMBAR SPINE WO CON, 07/11/2020, 9:57. FINDINGS: Bones: 5 [id number] vertebrae are present. Mild levoscoliosis. There is grade 1 anterolisthesis of L1 on L2 and L2 on L3. There are chronic vertebral body compression fractures, severe at T11 and moderate at L3. T11 vertebroplasty. No suspicious bony lesions. Osteopenia. There is degenerative disc disease, moderate at T12-L1 and L1-L2, and mild at other levels. Moderate facet arthropathy at L4-L5 and L5-S1. Bilateral total hip arthroplasties. Soft tissues: Overlying bowel gas pattern is normal. No suspicious soft tissue calcifications. IMPRESSION: 1. Chronic compression fracture of T11 and L3. There is vertebroplasty at T11. 2. 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 Dictated by: Nkechi Begum M.D. on 08/11/2022 at 13:17 Approved by: Nkechi Begum M.D. on 08/11/2022 at 13:21
== END ==
PROVIDERS: Family Provider Family Medicine; PCP Family Medicine; Referring Provider Physical Medicine & Rehabilitation; Visit Provider Physical Medicine & Rehabilitation
DX: M51.15 Intervertebral disc disorders with radiculopathy, thoracolumbar region (principal); M51.16 Intervertebral disc disorders with radiculopathy, lumbar region; M47.26 Other spondylosis with radiculopathy, lumbar region; M47.27 Other spondylosis with radiculopathy, lumbosacral region; M48.54XA Collapsed vertebra, not elsewhere classified, thoracic region, initial encounter for fracture; M48.56XA Collapsed vertebra, not elsewhere classified, lumbar region, initial encounter for fracture; Z96.643 Presence of artificial hip joint, bilateral
CPT/HCPCS: 72100

== ENCOUNTER → 2022-08-28 09:15 | Outpatient (CLI) | payer MEDICARE, SELFPAY ==
[2022-08-28 10:40] LABS: COVID19 -Nasal RAPID Negative (Negative)
--- NOTE | 2022-08-28 20:27 | DI.NM.S_ITS ---
DATE OF SERVICE: 08/28/2022 PROCEDURE: Pharmacological perfusion study. INDICATION: Chest pain with left shoulder pain, hypertension, hyperlipidemia, underlying left bundle branch block. RADIOPHARMACEUTICAL: 25.7 millicurie technetium-99m Myoview IV was injected at stress and 11.8 millicurie technetium-99m Myoview IV was injected at rest. CARDIAC STRESS: The patient underwent IV Lexiscan perfusion study under the supervision of an attending staff using standard intravenous Lexiscan protocol. She remained hemodynamically stable. Resting blood pressure 138/80. Baseline rhythm was sinus with underlying left bundle branch block. During stress, no new convincing ischemic changes seen. Occasional PVCs. No complex ventricular arrhythmias. With Lexiscan, patient had minimal dyspnea, no chest discomfort, and had stomach upset. RAW DATA: Breast shadow was seen. There is increased subdiaphragmatic activity. GATED STUDY: Resting LV ejection fraction 82 and stress LV ejection fraction 88 percent without any obvious wall motion abnormalities. Resting end-diastolic volume 65 mL. TID ratio 1.0, which is within normal limits. Lung/heart ratio 0.29, which is within normal limits. MYOCARDIAL PERFUSION SCAN: Please note, this patient does not have any prone images. Stress supine and resting supine images were compared to each other. Stress supine images revealed small size, mildly decreased perfusion of distal anteroseptum. Resting supine images revealed small size, moderately decreased perfusion of distal anterior wall, distal anteroseptum, as well as mildly decreased perfusion of inferior wall. No reversible ischemia. CONCLUSION: No reversible ischemia. Resting supine perfusion defect, worse than stress supine perfusion defect. Stress supine showed only mildly decreased perfusion of distal anteroseptum. Summed stress score 2 and summed rest score 7. Left ventricular function is preserved. Likely stress supine defect due to underlying left bundle branch block. No convincing perfusion defect in the left anterior descending territory during stress supine images. Hence, most likely, this is a normal myocardial perfusion study. This patient does not have any prone images. Left ventricular function is preserved. Overall low-risk myocardial perfusion scan. Correlate clinically. Bettie Patel - Leoncio/armani doc#: [id number]/job#: [id number] dd: 08/28/2022 16:52:00 dt: 08/28/2022 20:07:00 DICTATING MD/COPIES TO: Philip Salguero MD COPIES MNE: TI;
== END ==
PROVIDERS: Family Provider Family Medicine; PCP Family Medicine; Referring Provider Family Medicine; Visit Provider Family Medicine
DX: R07.89 Other chest pain (principal); I10 Essential (primary) hypertension; E78.5 Hyperlipidemia, unspecified; I44.7 Left bundle-branch block, unspecified; M25.512 Pain in left shoulder
CPT/HCPCS: 78452; 87635; 93017; C9803; A9502; J2785

== ENCOUNTER 2022-09-04 08:57 | Outpatient (CLI) | payer MEDICARE, SELFPAY ==
[2022-09-04] VITALS (7 sets, daily range): BP systolic 169–234; BP diastolic 81–143; PULSE 60–61; RESP 12–22; TEMP 36.4; O2SAT 96–99
--- NOTE | 2022-09-04 08:59 | DI.RAD.S_ITS ---
PROCEDURE: PAIN L/S TRANSFORAMINAL INJECT INDICATIONS: SPONDYLOSIS COMPARISON: [facility], , PAIN C/T TRANFORAMINAL INJECT, 07/17/2022, 10:43. FINDINGS: Fluoroscopic spot filming was performed to verify placement of spinal needles at the left T11-T12 level(s), as labeled on the films. Appropriate location(s) of the needle tip(s) was confirmed by injection of iodinated contrast. IMPRESSION: Intraprocedural examination within normal limits. Dictated by: Dipak Rodriguez M.D. on 09/04/2022 at 14:09 Approved by: Dipak Rodriguez M.D. on 09/04/2022 at 14:09
[2022-09-04] MEDS: MIDAZOLAM 2 MG/2 ML VIAL IV (10:29)
[2022-09-04] MEDS: IOPAMIDOL 15 ML VIAL 3 ML INJ (10:37)
[2022-09-04] MEDS: BUPIVACAINE 0.25% (PF) VIAL 2 ML INJ (10:38)
[2022-09-04] MEDS: DEXAMETHASONE 10 MG/ML VIAL 30 MG INJ (10:38)
--- NOTE | 2022-09-04 10:47 | P.PCN_ITS ---
Date/Time/Diagnoses Date of procedure: 09/04/22 Time of procedure: 10:47 Pre-procedure diagnosis: 1. FORAMINAL STENOSIS WITH LE SYMPTOMS Post-procedure diagnosis: same Procedure Notes Procedure: 1. FLUOROSCOPICALLY GUIDED CONTRAST CONTROLLED TRANSFORAMINAL EPIDURAL STEROID INJECTION - LEFT T11/T12 TFESI Indications: Bettie is referred by Dr. Christine for treatment of Foraminal Stenosis with Right thoracic Symptoms Physician: Jamie Kirkpatrick Total Fluoroscopy time (seconds): 7 Total sedation minutes: 12 Complications: none Procedure in detail & Post-procedure care: FINDINGS Foraminal Nerve Root Compression secondary to disc disease and facet hypertrophy DESCRIPTION OF PROCEDURE Following review of allergy and review of potential side effects and complications, including, but not necessarily limited to, infection, allergic reaction, local tissue breakdown, stroke, temporary or permanent nerve injury, paralysis, and possible , the patient indicated that the patient understood and agreed to proceed. An informed consent document was signed by the patient, witnessed by a nurse, and placed in the patient's chart. Additionally, other treatment options including medications, modalities, and physical therapy were reviewed with the patient. After review of previous anaesthesic history and IV conscious sedation the patient was deemed safe to proceed with today?s procedure with IV conscious sedation as ASA class II designation. Safety time-out was performed to confirm patient ID, procedure to be performed and site of procedure. IV sedation was accomplished with a combination of 2mg of Versed was administered by the RN after DO order, titrated to patient comfort during the course of the procedure while the patient remained responsive to all verbal commands In the prone position following sterile prep and drape of the lumbar region, the left T11/T12 posterior neuroforamen was identified fluoroscopically. The skin was anesthetized via a 25-gauge 1.5-inch needle with 1% lidocaine solution. At this point, a 25-gauge 3.5-inch spinal needle was atraumatically introduced and advanced under fluoroscopic guidance through the posterior left T11/T12 neuroforamen to approximately the anterior aspect of the canal. Depth was confirmed on lateral view. Following negative aspiration, injection of approximately 1.5cc of Isovue 200 under live fluoroscopy in the AP view confirmed excellent flow along the nerve root, into the epidural space without vascular or intrathecal uptake observed Radiological data, including multiple fluoroscopic views reveal the needle placement in the left T11/T12 posterior neuroforamen. Subsequent views show flow of contrast material flowing superiorly and inferiorly along the nerve root confirming epidural flow. Subsequently, a test dose of 1.5cc of 1% lidocaine solution was administered and patient was observed for signs or symptoms of complications, including abdominal pain, shortness of breath, bilateral upper or lower extremity weakness, nausea and vomiting, prior to steroid injection. At this point, a total of 3cc or 30mg of dexamethasone was injected without incident. The procedure tolerated the procedure well without signs or symptoms of complications prior to transfer to the recovery area continued monitoring without incident. The patient was then transferred to the recovery area where they were observed for an appropriate time after the injection. The patient reported a VAS score of 7 prior to the procedure and a post- procedure VAS of 0. POST OP INSTRUCTIONS The patient was provided a Pain Log to continue to record their response to the target-specific procedure prior to follow-up visit with their referring physician. Additionally, specific post-injection care instructions and a contact number to our office were provided if concerns arise regarding possible complications associated with the procedure are suspected.
== END 2022-09-04 11:05 | disposition home or self-care (01) ==
LOC: RAD 08:59
PROVIDERS: Family Provider Family Medicine; PCP Family Medicine; Referring Provider Physical Medicine & Rehabilitation; Visit Provider Physical Medicine & Rehabilitation
DX: M48.04 Spinal stenosis, thoracic region (principal); M51.14 Intervertebral disc disorders with radiculopathy, thoracic region
CPT/HCPCS: 64479; 64483; 99152; J1100; J2250; J3490

== ENCOUNTER → 2022-09-10 15:23 | Outpatient (CLI) | payer MEDICARE, SELFPAY ==
[2022-09-12 12:00] LABS: Candida species Negative (Negative); Gardnerella vaginalis Positive (Negative); Trichomoas vaginalis Negative (Negative)
== END ==
PROVIDERS: Family Provider Family Medicine; PCP Family Medicine; Visit Provider Obstetrics & Gynecology
DX: N89.8 Other specified noninflammatory disorders of vagina (principal)
CPT/HCPCS: 87480; 87510; 87660

== ENCOUNTER → 2022-09-11 09:52 | Outpatient (CLI) | payer MEDICARE, SELFPAY ==
[2022-09-11 10:55] LABS: Add Manual Diff / Slide Review NO; Basophils Absolute Auto 0 /uL (0-100); Basophils Percent Auto 0.5 % (0-2); Eosinophils Absolute Auto 300 /uL (0-450); Eosinophils Percent Auto 5.7 % (2-4); Hematocrit 41.4 % (36-46); Hemoglobin 13.7 g/dL (12.0-16.0); Lymphocytes Absolute Auto 2000 /uL (1100-4500); Lymphocytes Percent Auto 34.4 % (25-40); Mean Corpuscular Hemoglobin 31.1 PG (26-34); Mean Corpuscular Volume 94.2 fL (80-100); Monocytes Absolute Auto 500 /uL (0-900); Monocytes Percent Auto 9.4 % (3-14); Neutrophils Absolute Auto 2900 /uL (1500-7000); Platelet Count 201 X10^3/uL (150-400); Red Blood Cell Count 4.39 X10^6/uL (4.0-5.2); Red Cell Distribution Width 14.5 % (11.6-14.8); White Blood Cell Count 5.8 X10^3/uL (4.5-11.0)
[2022-09-11 11:05] LABS: Alanine Aminotransferase 20 IU/L (<35); Albumin 4.2 g/dL (3.5-5.0); Albumin Globulin Ratio 1.4 (1.0-2.8); Alkaline Phosphatase 49 U/L (38-126); Aspartate Aminotransferase 25 IU/L (14-36); BUN Creatinine Ratio 25.7 (6-22); Bilirubin Total 0.4 mg/dL (0.2-1.3); Blood Urea Nitrogen 18 mg/dL (7-17); Calcium 10.7 mg/dL (8.4-10.2); Carbon Dioxide 33 mmol/L (22-32); Chloride 104 mmol/L (98-107); Cholesterol 227 mg/dL (140-199); Estimated Glomerular Filt Rate > 60 mL/min (>60); Glucose 86 mg/dL (80-110); HDL Cholesterol 49 mg/dL (40-60); HEMOLYSIS < 15 (0-50); LDL Cholesterol Calculated 132 mg/dL (<100); Potassium 4.2 mmol/L (3.4-5.1); Sodium 142 mmol/L (137-145); Total Protein 7.2 g/dL (6.3-8.2); Triglycerides 231 mg/dL (35-150)
[2022-09-11 11:35] LABS: TSH w/ Reflex to FT4 0.17 uIU/mL (0.47-4.68)
[2022-09-11 12:39] LABS: Creatinine Urine Random 86.4 mg/dL
[2022-09-11 12:44] LABS: Microalbumi Creatinin Ratio Ur 60.1 ug/mg CR (<30); Microalbumin Urine Random 5.2 mg/dL (0-1.6)
== END ==
PROVIDERS: Family Provider Family Medicine; PCP Family Medicine; Referring Provider Family Medicine; Visit Provider Family Medicine
DX: E03.9 Hypothyroidism, unspecified (principal); G89.29 Other chronic pain; I10 Essential (primary) hypertension; I35.1 Nonrheumatic aortic (valve) insufficiency; M54.50 Low back pain, unspecified; S22.070D Wedge compression fracture of T9-T10 vertebra, subsequent encounter for fracture with routine healing
CPT/HCPCS: 36415; 80053; 80061; 82043; 82570; 84439; 84443; 85025

== ENCOUNTER → 2022-10-28 10:34 | Outpatient (CLI) | payer MEDICARE, SELFPAY ==
--- NOTE | 2022-10-28 10:35 | DI.CT.S_ITS ---
PROCEDURE: CT ABDOMEN PELVIS W CON INDICATIONS: pancreatitis TECHNIQUE: After the administration of oral and intravenous contrast, axial sections were acquired from the lung bases to the pubic symphysis. Coronal and sagittal reformats were performed. For radiation dose reduction, the following was used: automated exposure control, adjustment of mA and/or kV according to patient size. COMPARISON:[facility], CT, CT ANGIO CHEST ABDOMEN, 10/19/2020, 11:05. FINDINGS: Image quality: Good Lower chest: Large hiatal hernia again seen. Solid organs: Liver is unremarkable. Gallbladder is unremarkable. Similar prominent appearance of the biliary tree and pancreatic duct compared to 2020 imaging. No splenomegaly. No adrenal nodules. Bosniak 1 and 2 renal lesions are present, for which no dedicated followup is necessary per 2019 proposed guidelines. Similar right pelviectasis. Vessels and lymph nodes: Main portal vein is patent. No abdominal aortic aneurysm. No adenopathy by size criteria. Bowel and peritoneum: Oral contrast is seen throughout loops of bowel. No evidence of acute obstruction. Moderate colorectal fecal loading. Body wall: Unremarkable Pelvis: Limited evaluation due to metallic artifact. No gross abnormality on iterative reconstruction images. Bones: Bilateral hip arthroplasties causing significant artifact in the pelvis. There is heterogeneous demineralization. Height loss of multiple vertebral bodies as before, for example at L3 and T11, the latter with kyphoplasty material. IMPRESSION: No convincing evidence of pancreatitis on CT. No drainable abscess. Similar prominent pancreatic duct compared to 2019. Multiple favored nonacute/incidental findings in the abdomen and pelvis as described above. Pelvis is difficult to evaluate due to metallic artifact. Dictated by: Kartik Sarabia M.D. on 10/28/2022 at 15:10 Approved by: Kartik Sarabia M.D. on 10/28/2022 at 15:20
[2022-10-28 11:01] LABS: Estimated Glomerular Filt Rate > 60 mL/min (>60)
== END ==
PROVIDERS: Family Medicine; Family Provider Family Medicine; PCP Family Medicine; Referring Provider Physical Medicine & Rehabilitation; Visit Provider Physical Medicine & Rehabilitation
DX: K85.90 Acute pancreatitis without necrosis or infection, unspecified (principal); M54.14 Radiculopathy, thoracic region; Z96.643 Presence of artificial hip joint, bilateral; Z83.79 Family history of other diseases of the digestive system
CPT/HCPCS: 36415; 74177; 82565; Q9967

== ENCOUNTER → 2022-12-03 08:47 | Outpatient (CLI) | payer MEDICARE, SELFPAY ==
--- NOTE | 2022-12-03 08:50 | DI.MG.S_ITS ---
BILATERAL DIGITAL DIAGNOSTIC MAMMOGRAM 3D/2D: 12/03/2022 CLINICAL: Bilateral breast pain. Comparison is made to exams dated: 03/10/2022 mammogram, 02/15/2021 ultrasound, 02/15/2021 mammogram - [facility], and 06/02/2019 mammogram - [facility]. There are scattered areas of fibroglandular density in both breasts (category b / 25%-50% glandular tissue). No significant masses, calcifications, or other findings are seen in either breast. No abnormality which corresponds with the area of pain is identified. Asymmetries in both breasts demonstrate no change compared to multiple prior mammograms. IMPRESSION: BENIGN There is no abnormality seen in either breast to correspond with the pain, however, clinical followup is recommended. There is no mammographic evidence of malignancy. A 1 year screening mammogram is recommended. This exam was interpreted at Station ID: [id number]. NOTE: For mammograms, a report in lay terms will be sent to the patient. Approximately 15% of breast malignancies will not be visualized mammographically. In the management of a palpable breast mass, a negative mammogram must not discourage biopsy of a clinically suspicious lesion. Electronically Signed By: Donny Lewis M.D. acr/:12/04/2022 08:37:42 Entry: aa - 12/04/2022 08:37:42 letter sent: Clinical Evaluation ACR BI-RADS Category 2: Benign Finding(s) [id number]
== END ==
PROVIDERS: Family Provider Family Medicine; PCP Family Medicine; Referring Provider Physician Assistant Medical; Visit Provider Physician Assistant Medical
DX: N64.4 Mastodynia (principal)
CPT/HCPCS: 77066; G0279

== ENCOUNTER → 2022-12-08 10:10 | Outpatient (CLI) | payer MEDICARE, SELFPAY ==
--- NOTE | 2022-12-08 10:11 | DI.CT.S_ITS ---
PROCEDURE: CT THORACIC SPINE WO CON INDICATIONS: Osteoporosis with history of fracture TECHNIQUE: Noncontrast 3 mm thick sections acquired through the region of interest in the thoracic spine. Sagittal and coronal reformats were then constructed. For radiation dose reduction, the following was used: automated exposure control. COMPARISON: [facility], CT, CT ABDOMEN PELVIS W CON, 10/28/2022, 11:45. [facility] [place], CR, XR THORACIC SPINE 2 VIEWS, 03/06/2021, 9:51. FINDINGS: Image quality: Excellent. Bones: Generalized decreased osseous mineralization present. Post previously noted T11 osteopenic compression fracture with vertebroplasty remains unchanged with retropulsed fracture fragment. T9 wedge-shaped compression fracture is also similar to the prior. Retropulsed fracture fragment at T11 results in [id number] central stenosis. Remainder of the osseous central canal is widely patent Soft tissues: No paravertebral masses or hematomas. Visualized posteromedial lungs appear clear. IMPRESSION: Stable T9 and T11 compression fractures with mild to moderate central stenosis at T10-T11. T11 vertebroplasty, stable Approved by: Luis Avalos M.D. on 12/08/2022 at 16:04
== END ==
PROVIDERS: Family Provider Family Medicine; PCP Family Medicine; Referring Provider Physical Medicine & Rehabilitation; Visit Provider Physical Medicine & Rehabilitation
DX: M54.14 Radiculopathy, thoracic region (principal); S22.070D Wedge compression fracture of T9-T10 vertebra, subsequent encounter for fracture with routine healing; M48.04 Spinal stenosis, thoracic region
CPT/HCPCS: 72128

== ENCOUNTER 2023-03-12 09:03 | Outpatient (CLI) | payer MEDICARE, SELFPAY ==
[2023-03-12 09:15] VITALS: BP 259/121; PULSE 61; RESP 16; TEMP 36.7; O2SAT 98
[2023-03-12 09:20] VITALS: BP 148/126; PULSE 58; RESP 18; O2SAT 98
[2023-03-12 09:25] VITALS: BP 220/98; PULSE 60; RESP 18; O2SAT 98
[2023-03-12 09:30] VITALS: BP 226/94; PULSE 58; RESP 16; O2SAT 98
--- NOTE | 2023-03-12 09:55 | PC.NURSE ---
Patient arrived into the pre procedure room to check in for spinal injection, blood pressure noted to be elevated. rechecked per vitals, was notified, Patient took her atenolol last night but states that she has not been taking her Amlodipine states that it has been making her gums grow. Procedure was postponed due to blood pressure. Stoke with Caitlin at Dr Christine office who states that she has not been refilling her medications. They are unable to get her in for a visit today but an appointment has been made for March 17 at 2pm. Reports that she should be evaluated by ED. Patient denies any chest pain, SOB, H/A and change in vision. Ok to transfer to ED per Dr Kirkpatrick. Spoke with dry charge process attendant in ED and also Dr Ramos. Patient was transferred to Room 8 in ED report was given.
== END 2023-03-12 09:45 | disposition other institution (70) ==
LOC: RAD 09:04
PROVIDERS: Family Provider Family Medicine; PCP Family Medicine; Referring Provider Physical Medicine & Rehabilitation; Visit Provider Physical Medicine & Rehabilitation
DX: M54.14 Radiculopathy, thoracic region (principal)
CPT/HCPCS: J3490

== ENCOUNTER 2023-03-12 09:46 | Emergency (ER) | payer MEDICARE, SELFPAY ==
[2023-03-12] VITALS (22 sets, daily range): BP systolic 211–245; BP diastolic 90–107; PULSE 57–65; RESP 12–18; TEMP 36.8; O2SAT 95–97; BMI 25.0
--- NOTE | 2023-03-12 10:13 | DI.RAD.S_ITS ---
PROCEDURE: XR CHEST 1V INDICATIONS: chest pain TECHNIQUE: One view of the chest was acquired. COMPARISON: [facility], CT, CT THORACIC SPINE WO CON, 12/08/2022, 10:16. [facility], CR, XR CHEST 1V, 05/13/2022, 0:19. FINDINGS: Surgical changes and devices: None. Lungs and pleura: Lungs are clear. No pleural effusions or pneumothorax. Mediastinum: Mediastinal contours appear normal. Heart size is normal. Bones and chest wall: No suspicious bony lesions. Overlying soft tissues appear unremarkable. Remote percutaneous cement fixation of T11. IMPRESSION: No evidence acute pulmonary process. Dictated by: Aashish Escalante M.D. on 03/12/2023 at 10:54 Approved by: Aashish Escalante M.D. on 03/12/2023 at 10:55
--- NOTE | 2023-03-12 10:44 | ED_ITS ---
HPI - General Adult General Chief complaint: Hypertension Stated complaint: Hypertension Time Seen by Provider: 03/12/23 10:44 Source: patient Mode of arrival: Ambulatory Limitations: no limitations History of Present Illness HPI narrative: This is a 87-year-old female with history of hypertension, hypothyroidism, prior right carotid stenosis and chronic back pain secondary to compression fractures. Patient presents from she was supposed to have a spinal injection for chronic back pain today and was noted to be hypertensive in the 250/140 range on multiple checks and is still hypertensive here in the department. Patient notes that she stopped her amlodipine 1 or 2 months ago after seeing her dentist they told her that it can cause the gingiva or gums to grow excessively and that she had a little bit of increased. She had not been in touch with her physician or had any other alternative medications added. She does normally take atenolol 50 mg in the morning and 25 mg in the evening as well as levothyroxine. Patient states she took her levothyroxine this morning but not her atenolol. Patient states no chest pain, no shortness of breath, no lightheadedness or passing out, no nausea no vomiting no diaphoresis, no swelling in extremities. Patient states her back pain is actually doing fairly well today. She denies any symptoms. Patient states she is allergic to several medications. She does currently live at [facility], Dr. Ferrari is her primary care she has not seen him since last fall. She does not use any tobacco or recreational drugs. She has about 6 oz of port nightly. Related Data Home Medications Medication Instructions Recorded Confirmed phenazopyridine [Azo Urinary Pain 1 tab PO DAILY 11/21/19 02/19/23 Relief] true vision PO 11/21/19 02/19/23 aspirin 81 mg tablet,delayed 81 mg PO DAILY 12/15/19 02/19/23 release (Adult Aspirin Regimen) Prevegen 2 tab PO DAILY 01/13/20 02/19/23 cholecalciferol (vitamin D3) 50 50 mcg PO DAILY 01/13/20 02/19/23 mcg (2,000 unit) capsule coenzyme Q10 200 mg capsule (Co 200 mg PO BID 01/13/20 02/19/23 Q-10) vitamins A,C,F-htdx-sekria 2,148 2 tab PO BID 03/20/20 04/27/23 mcg-113 mg-45 mg-17.4 mg tablet (PreserVision AREDS) Previous Rx's Medication Instructions Recorded atenolol 25 mg tablet See Rx Instructions .Route 05/09/22 .COMPLEX #270 tabs estradiol 0.01% (0.1 mg/gram) 1 g vaginal DAILY lichen sclerosis 07/24/22 vaginal cream (Estrace) #42.5 grams amlodipine 5 mg tablet See Rx Instructions .Route 08/12/22 .COMPLEX #180 tabs clobetasol 0.05 % topical ointment 1 applic topical DAILY lichen 09/17/22 sclerosis #30 grams betamethasone dipropionate 0.05 % See Rx Instructions topical .tid 09/29/22 topical cream rash #45 grams Levoxyl 50 mcg tablet 50 mcg PO DAILY #90 tabs 02/03/23 (levothyroxine) valsartan 80 mg tablet 80 mg PO DAILY #20 tabs 03/12/23 Allergies Allergy/AdvReac Type Severity Reaction Status Date / Time Penicillins Allergy Severe Rash Verified 02/19/23 09:39 shellfish derived Allergy Intermediate Rash Verified 02/19/23 09:39 latex [LATEX] Allergy Mild WELTS Verified 02/19/23 09:39 morphine [MORPHINE] Allergy Mild WELTS Verified 02/19/23 09:39 Sulfa (Sulfonamide Allergy Mild UNK Verified 02/19/23 09:39 Antibiotics) [SULFA (SULFONAMIDE ANTIBIOTICS)] alendronate sodium Allergy Unknown Verified 02/19/23 09:39 [From FOSAMAX] acetaminophen [From Percocet] AdvReac Intermediate altered Verified 02/19/23 09:39 mental status oxycodone [From Percocet] AdvReac Intermediate altered Verified 02/19/23 09:39 mental status FISH Allergy Mild Rash Uncoded 02/19/23 09:39 Review of Systems Review of Systems ROS Unobtainable: All systems reviewed & are unremarkable except as noted in HPI and below Patient History Medical History Acute bilateral thoracic back pain Anxiety Aortic regurgitation Bilateral hip pain Bilateral leg cramps Body posture problem Cervical somatic dysfunction Chest wall pain, chronic Chicken pox Chronic back pain Chronic back pain Chronic thoracic spine pain Closed T11 fracture Colon polyps (~1994) Compression fracture of T9 vertebra Cranial somatic dysfunction Dizziness Family history of pancreatitis Fractures Generalized pruritus Hearing loss History of urinary incontinence (~2015) HTN (hypertension) Hypercalcemia Hypothyroidism (~1982) Insomnia Kyphosis Large hiatal hernia Left elbow pain Leg cramps Loss of vision Low back pain with bilateral sciatica Macular degeneration (~2000) Measles Mumps Osteoporosis Pain of both breasts Pain of left breast Pelvic somatic dysfunction Polio (~1945) Pulmonary nodule, right Rib pain on left side Rib pain on left side Rib pain on right side Scoliosis Segmental and somatic dysfunction of abdomen and other regions Segmental and somatic dysfunction of lumbar region Segmental and somatic dysfunction of rib cage Segmental and somatic dysfunction of sacral region Segmental and somatic dysfunction of thoracic region Shoulder pain, left Stiff neck Thoracic radiculitis Thoracic spine fracture Transient ischemic attack (~1997) Upper extremity somatic dysfunction UTI (urinary tract infection) Vitiligo (~1975) Surgical History Anesthesia History of bladder suspension procedure (~1998) History of cataract removal with insertion of prosthetic lens (~2014) History of elbow surgery (~08/2015) History of hip replacement (~2004) History of kyphoplasty (~2002) History of surgery on right wrist (~10/14/19) Status post vertebroplasty Family History Father Suicide Mental health problem Mother Pancreatitis Brother No problems noted. Brother No problems noted. Sister Mental health problem Grandmother Senility Social History household members: none Smoking Status: Never smoker Smoking Status: Never smoker alcohol intake frequency: 0-2 drinks per day Alcohol type: wine Substance Use Type: does not use Exam Narrative Exam Narrative: GENERAL: Alert and oriented x three, well-appearing elderly female in mild distress HEENT: Head normocephalic, atraumatic, EOMI, pupils reactive, face symmetric, moist mucous membranes NECK: Supple, full range of motion CARDIOVASCULAR: Regular rate and rhythm without murmurs, rubs or gallops. No JVD. No swelling bilateral lower extremities. RESPIRATORY: Breath sounds equal bilaterally, no wheezes rales or rhonchi. No tachypnea, no accessory muscle use. ABDOMEN: Soft, nontender. Normoactive bowel sounds all 4 quadrants. No guarding or rebound, rigidity, no mass : No CVA tenderness EXTREMITIES: Normal range of motion, no clubbing or edema. Neurovascularly intact. 2+ pulses bilateral lower extremities. NEUROLOGICAL: Cranial nerves II through XII grossly intact. Moving all extremities SKIN: Warm, dry, no petechiae, no rashes or lesions. Initial Vital Signs Initial Vital Signs: Vital Signs Temperature 98.3 F 03/12/23 09:57 Pulse Rate 65 03/12/23 09:57 Respiratory Rate 18 03/12/23 09:57 Blood Pressure 242/107 H 03/12/23 09:57 Pulse Oximetry 97 03/12/23 09:57 Oxygen Delivery Method Room Air 03/12/23 09:57 Course Orders Ordered: ED Orders 03/12/23 10:13 XR chest 1V Stat 03/12/23 10:21 COVID19 -Nasal RAPID Stat Complete Blood Count AUTO DIFF Stat Comprehensive Metabolic Panel Stat Lipase Stat Magnesium Stat PTT Partial Thromboplastin Og Stat Prothrombin Time INR Stat Troponin & CK Cardiac Panel Stat 03/12/23 10:26 EKG-12 Lead Stat 03/12/23 11:35 Urine Culture Stat Urine Microscopic Stat Discontinued Medications Aspirin (Aspirin 81 Mg Chew Tab) 324 mg PO NOW ONE Stop: 03/12/23 10:14 Last Admin: 03/12/23 10:47 Dose: Not Given Documented By: ADAM Atenolol (Atenolol 50 Mg Tablet) 50 mg PO NOW ONE Stop: 03/12/23 10:52 Last Admin: 03/12/23 11:10 Dose: 50 mg Documented By: ADAM(2) Lisinopril (Lisinopril 10 Mg Tablet) 10 mg PO NOW ONE Stop: 03/12/23 12:09 Last Admin: 03/12/23 12:25 Dose: Not Given Documented By: ADAM(2) Valsartan (Valsartan 80 Mg Tablet) 80 mg PO NOW ONE Stop: 03/12/23 12:14 Last Admin: 03/12/23 12:29 Dose: 80 mg Documented By: ADAM(2) Vital Signs Vital signs: Vital Signs - 8 hr 03/12/23 10:09 03/12/23 10:13 03/12/23 10:13 Pulse Rate 58 L 60 Respiratory Rate Blood Pressure 214/90 H Pulse Oximetry 96 97 03/12/23 10:16 03/12/23 10:16 03/12/23 10:30 Pulse Rate 62 60 Respiratory Rate Blood Pressure 231/93 H Pulse Oximetry 96 96 03/12/23 10:53 03/12/23 10:53 03/12/23 10:55 Pulse Rate 61 61 Respiratory Rate Blood Pressure 240/107 H Pulse Oximetry 95 97 03/12/23 10:55 03/12/23 10:56 03/12/23 10:56 Pulse Rate 60 Respiratory Rate Blood Pressure 237/103 H 231/102 H Pulse Oximetry 96 03/12/23 11:00 03/12/23 11:00 03/12/23 11:05 Pulse Rate 59 L 59 L Respiratory Rate Blood Pressure 225/100 H Pulse Oximetry 95 95 03/12/23 11:05 03/12/23 11:10 03/12/23 11:10 Pulse Rate 59 L Respiratory Rate Blood Pressure 219/96 H 215/100 H Pulse Oximetry 95 03/12/23 11:20 03/12/23 11:20 03/12/23 11:25 Pulse Rate 59 L Respiratory Rate Blood Pressure 231/101 H 221/101 H Pulse Oximetry 95 03/12/23 11:25 03/12/23 11:37 03/12/23 11:37 Pulse Rate 62 65 Respiratory Rate Blood Pressure 245/106 H Pulse Oximetry 95 96 03/12/23 11:41 03/12/23 11:41 03/12/23 11:45 Pulse Rate 62 61 Respiratory Rate Blood Pressure 232/99 H Pulse Oximetry 96 96 03/12/23 11:45 03/12/23 11:50 03/12/23 11:50 Pulse Rate 60 Respiratory Rate 14 Blood Pressure 232/100 H 213/95 H Pulse Oximetry 96 03/12/23 11:55 03/12/23 11:55 03/12/23 12:00 Pulse Rate 58 L Respiratory Rate 12 Blood Pressure 211/97 H 213/96 H Pulse Oximetry 96 03/12/23 12:00 03/12/23 12:10 03/12/23 12:10 Pulse Rate 58 L 58 L Respiratory Rate 18 18 Blood Pressure 214/96 H Pulse Oximetry 97 96 03/12/23 12:20 03/12/23 12:20 03/12/23 12:30 Pulse Rate 57 L 57 L Respiratory Rate 12 18 Blood Pressure 212/99 H Pulse Oximetry 96 Medical Decision Making Lab Data 03/12/23 10:21 03/12/23 10:21 Labs: Lab Results 03/12/23 03/12/23 03/12/23 Range/Units 10:21 10:21 10:21 WBC 5.1 (4.5-11.0) X10^3/uL RBC 4.35 (4.0-5.2) X10^6/uL Hgb 14.0 (12.0-16.0) g/dL Hct 41.3 (36-46) % MCV 95.0 (80-100) fL MCH 32.3 (26-34) PG MCHC 34.0 (30-36) % RDW 14.5 (11.6-14.8) % Plt Count 167 (150-400) X10^3/uL Neut % (Auto) 46.2 L (50-75) % Lymph % (Auto) 41.4 H (25-40) % [place] % (Auto) 8.6 (3-14) % Eos % (Auto) 3.1 (2-4) % Baso % (Auto) 0.7 (0-2) % Neut # (Auto) 2300 (1194-0879) /uL Lymph # (Auto) 2100 (2133-3564) /uL [place] # (Auto) 400 (0-900) /uL Eos # (Auto) 200 (0-450) /uL Baso # (Auto) 0 (0-100) /uL PT 11.3 (10.1-12.7) SECONDS INR 1.0 (0.9-1.3) APTT 34 (26-36) SECONDS Sodium 140 (137-145) mmol/L Potassium 3.8 (3.4-5.1) mmol/L Chloride 102 (98-107) mmol/L Carbon Dioxide 32 (22-32) mmol/L BUN 18 H (7-17) mg/dL Creatinine 0.71 (0.52-1.04) mg/dL Estimated GFR > 60 (>60) mL/min BUN/Creatinine Ratio 25.4 H (6-22) Glucose 100 (80-110) mg/dL Calcium 10.4 H (8.4-10.2) mg/dL Magnesium 2.1 (1.6-2.3) mg/dL Total Bilirubin 0.6 (0.2-1.3) mg/dL AST 30 (14-36) IU/L ALT 23 (<35) IU/L Alkaline Phosphatase 87 (38-126) U/L Total Creatine Kinase 24 L (30-135) U/L CK-MB (CK-2) TNP CK-MB (CK-2) Rel Index TNP Troponin I < 0.012 (0.01-0.034) ng/mL Total Protein 7.4 (6.3-8.2) g/dL Albumin 4.3 (3.5-5.0) g/dL Globulin 3.1 (1.7-4.1) g/dL Albumin/Globulin Ratio 1.4 (1.0-2.8) Lipase 139 (23-300) U/L Urine RBC (0-5/HPF) Urine WBC (0-5/HPF) Ur Squamous Epith Cells (0-5/HPF) Urine Bacteria (None) Ur Culture Indicated? SARS-CoV-2 (PCR) (Negative) 03/12/23 03/12/23 Range/Units 10:21 11:35 WBC (4.5-11.0) X10^3/uL RBC (4.0-5.2) X10^6/uL Hgb (12.0-16.0) g/dL Hct (36-46) % MCV (80-100) fL MCH (26-34) PG MCHC (30-36) % RDW (11.6-14.8) % Plt Count (150-400) X10^3/uL Neut % (Auto) (50-75) % Lymph % (Auto) (25-40) % [place] % (Auto) (3-14) % Eos % (Auto) (2-4) % Baso % (Auto) (0-2) % Neut # (Auto) (5396-8973) /uL Lymph # (Auto) (2296-9105) /uL [place] # (Auto) (0-900) /uL Eos # (Auto) (0-450) /uL Baso # (Auto) (0-100) /uL PT (10.1-12.7) SECONDS INR (0.9-1.3) APTT (26-36) SECONDS Sodium (137-145) mmol/L Potassium (3.4-5.1) mmol/L Chloride (98-107) mmol/L Carbon Dioxide (22-32) mmol/L BUN (7-17) mg/dL Creatinine (0.52-1.04) mg/dL Estimated GFR (>60) mL/min BUN/Creatinine Ratio (6-22) Glucose (80-110) mg/dL Calcium (8.4-10.2) mg/dL Magnesium (1.6-2.3) mg/dL Total Bilirubin (0.2-1.3) mg/dL AST (14-36) IU/L ALT (<35) IU/L Alkaline Phosphatase (38-126) U/L Total Creatine Kinase (30-135) U/L CK-MB (CK-2) CK-MB (CK-2) Rel Index Troponin I (0.01-0.034) ng/mL Total Protein (6.3-8.2) g/dL Albumin (3.5-5.0) g/dL Globulin (1.7-4.1) g/dL Albumin/Globulin Ratio (1.0-2.8) Lipase (23-300) U/L Urine RBC 0-1/hpf (0-5/HPF) Urine WBC 5-10/hpf H (0-5/HPF) Ur Squamous Epith Cells 1-5 /hpf D (0-5/HPF) Urine Bacteria Many (>30) H (None) Ur Culture Indicated? Specimen cultured SARS-CoV-2 (PCR) Negative (Negative) Urine Dip Bedside Urine Glucose Negative Bedside Urine Bilirubin - Negative Bedside Urine Ketone - Negative Urine Specific [place] 1.010 Bedside Urine Occult Blood - Negative Bedside Urine pH 7.0 Bedside Urine Protein - Negative Bedside Urine Urobilinogen - Negative Bedside Urine Nitrite + Positive Bedside Urine Leukocytes + 70 Esterase Point of care testing: Urine Dip Bedside Urine Glucose Negative Bedside Urine Bilirubin - Negative Bedside Urine Ketone - Negative Urine Specific [place] 1.010 Bedside Urine Occult Blood - Negative Bedside Urine pH 7.0 Bedside Urine Protein - Negative Bedside Urine Urobilinogen - Negative Bedside Urine Nitrite + Positive Bedside Urine Leukocytes + 70 Esterase Imaging Data Chest x-ray: Radiologist's Impression: Allergy/Adv: Penicillins, shellfish derived, latex, morphine, Sulfa (Sulfonamide Antibiotics), alendronate sodium, acetaminophen, oxycodone, [FISH] (More??) Close Chest X-Ray (Signed) Aashish Escalante - 03/12/[address] (Signed) Luis Avalos - 12/08/22 Mammogram Diagnostic (Signed) BernabeDonny sarabia - 12/03/22 Abdomen/Pelvis CT (Signed) Kartik Sarabia - 10/28/22 Injection Lumbar, Sacrum (Cancelled) Holden,Dipak - 09/04/22 Cervical/Thoracic Injection (Addendum) Holden,Dipak - 09/04/22 Radiology Report (Cancelled) Abhijeet Salguerou - 08/28/22 Myocardial Perfusion Scan Nuc Med (Signed) Paliwal,Magdadhu - 08/28/22 Lumbar Spine X-Ray (Signed) Nkechi Begum - 08/11/22 Cervical/Thoracic Injection (Signed) Emmie Noriega - 07/17/22 Telemetry Strips 06/03/22 Toe X-Ray (Signed) Melissa Rodrigueze - 05/27/22 Chest X-Ray (Signed) Will Begum - 05/13/22 EKG Rpt. 05/12/22 Chest X-Ray (Signed) Yolis Begum - 03/17/22 Mammogram Screening (Signed) Dru Chase - 03/10/22 Thoracic Spine MRI (Signed) Aashish Escalante - 02/22/22 Hip X-Ray (Signed) Yeny Flanagan - 02/22/22 Bone Densitometry 01/09/22 DEXA Result 01/09/22 Knee MRI (Signed) Emmie Noriega - 10/17/21 Knee X-Ray (Signed) Patrice Bahena - 10/14/21 Ankle X-Ray (Signed) Will Begum - 02/22/21 Mammogram Diagnostic (Signed) Carly Muir - 02/15/21 Axilla US (Signed) Carly Muir - 02/15/21 Bone Densitometry 01/03/21 Vascular Ultrasound (Signed) Aashish Escalante - 11/21/20 Chest X-Ray (Signed) Tomas Peterson - 11/16/20 Thoracic Spine MRI (Signed) Tomas Peterson - 10/29/20 Chest/Abdomen CTA (Signed) Dru Chase - 10/19/20 Chest/Abdomen X-ray (Signed) Dru Chase - 10/19/20 Lumbar Spine MRI (Signed) Dipak Rodriguez - 07/11/20 Chest X-Ray (Signed) Dipak Rodriguez - 06/20/20 Radiology Report (Cancelled) Philip Salguero - 08/13/19 Myocardial Perfusion Scan Nuc Med (Signed) CharlypetersonMagda ariasgabeshannan - 08/13/19 Launch?Image [address] [address] XRay Report Signed Patient: Bettie Patel MR#: [id number] : 1935 Acct:[id number] Age/Sex: 87 / F Date of Service: 03/12/23 Loc: ED Accession Number: [id number] ?? Procedure: XR chest 1V Ordering Provider: Chrissy Ramos D.O. PROCEDURE:? XR CHEST 1V ? INDICATIONS:? chest pain ? TECHNIQUE:? One view of the chest was acquired.? ? COMPARISON:? [facility], CT, CT THORACIC SPINE WO CON, 12/08/2022, 10:16.? [facility], CR, XR CHEST 1V, 05/13/2022, 0:19. ? FINDINGS:? ? Surgical changes and devices:? None.? ? Lungs and pleura:? Lungs are clear.? No pleural effusions or pneumothorax.? ? Mediastinum:? Mediastinal contours appear normal.? Heart size is normal.? ? Bones and chest wall:? No suspicious bony lesions.? Overlying soft tissues appear unremarkable.? Remote percutaneous cement fixation of T11. ? IMPRESSION:? No evidence acute pulmonary process. ? ? ? Dictated by: Aashish Escalante M.D. on 03/12/2023 at 10:54 ? ? Approved by: Aashish Escalante M.D. on 03/12/2023 at 10:55?? ECG Data Attestation: I personally reviewed and interpreted this ECG as follows: Prior ECG tracings: available for review Interpretation: Sinus rhythm rate of 61 WA 186 QRS of 144 QTC 45. Left bundle-branch block. , left axis deviation. Patient has prior from 05/12/2022 which appears similar. MDM Narrative Medical decision making narrative: This is a 87-year-old female with asymptomatic hypertension likely secondary to the fact that she stopped 1 of her antihypertensive medication amlodipine 1 or 2 months ago and had not taken her morning medication of atenolol this morning. Workup including EKG, chest x-ray and lab work for end-organ damage was obtained, patient was given her home morning atenolol dose of 50 mg. Patient's labs overall reassuring, patient's calcium is slightly high not as high as in the past. Patient was given home atenolol dose monitored and was still high so started on a 2nd medication. Patient noted she was on lisinopril but had a cough. We will try valsartan instead but discussed she might develop a cough with this as well. Patient's has a appointment set up with her primary care this upcoming Thursday. Patient's blood pressure was trending down appropriately, discussed with patient I do not want her to be completely normalized today as I would also not be good as I suspect she is been quite hypertensive for some time but that end goal is to be normotensive. Discharge Plan Departure Patient Disposition: Home Clinical Impression: Hypertension Instructions: DI for High Blood Pressure Activity Restrictions/Additional Instructions: Follow-up with your physician for recheck at your appointment on Thursday. Your calcium is slightly elevated today make sure you are drinking plenty of fluids and follow up with your physician that your level rechecked. Continue your atenolol as prescribed, you had your am dose today in the emergency department. I would recommend starting valsartan once daily. There is a chance that you may have a cough with this medication like you did with lisinopril if that develops stopped the medication, let your physician no and they can change her medication Prescription sent to [facility] in [place].. Please return for chest pain, shortness of breath, lightheadedness or passing out, new swelling in your extremities, vomiting, diaphoresis or sweatiness or other new or concerning changes. Prescriptions: New valsartan 80 mg tablet 80 mg PO DAILY Qty: 20 0RF No Action phenazopyridine 1 tab PO DAILY true vision PO Patient Comments: patient ran out- and awaiting to get rx filles coenzyme Q10 [Co Q-10] 200 mg capsule 200 mg PO BID betamethasone dipropionate 0.05 % cream See Rx Instructions topical .tid Qty: 45 0RF Rx Instructions: topically TID; apply thin film to affected area topically TID estradiol [Estrace] 0.01 % (0.1 mg/gram) cream 1 g vaginal DAILY Qty: 42.5 0RF Rx Instructions: Apply to vulva daily for 2 weeks, then 2x weekly. amlodipine 5 mg tablet See Rx Instructions .ROUTE .COMPLEX Qty: 180 3RF Dose Instruction: TAKE 1 TABLET BY MOUTH TWICE DAILY FOR HIGH BLOOD PRESSURE Rx Instructions: TAKE 1 TABLET BY MOUTH TWICE DAILY FOR HIGH BLOOD PRESSURE clobetasol 0.05 % ointment 1 applic topical DAILY Qty: 30 2RF Rx Instructions: Apply to vulva twice weekly. levothyroxine [Levoxyl] 50 mcg tablet 50 mcg PO DAILY Qty: 90 0RF Rx Instructions: brand name only aspirin [Adult Aspirin Regimen] 81 mg tablet,delayed release (DR/EC) 81 mg PO DAILY PreserVision AREDS [id number] tablet 2 tab PO BID Prevegen 2 tab PO DAILY cholecalciferol (vitamin D3) 50 mcg (2,000 unit) capsule 50 mcg PO DAILY atenolol 25 mg tablet See Rx Instructions .ROUTE .COMPLEX Qty: 270 3RF Dose Instruction: TAKE 1 TABLET BY MOUTH TWICE DAILY Rx Instructions: TAKE 2 TABLETs BY MOUTH each morning and t 1 tablet by mouth in the evening Referrals: Josias Christine MD [Primary Care Provider] - Stand Alone Forms: Patient Portal/API
[2023-03-12 10:45] LABS: Add Manual Diff / Slide Review NO; Basophils Absolute Auto 0 /uL (0-100); Basophils Percent Auto 0.7 % (0-2); Eosinophils Absolute Auto 200 /uL (0-450); Eosinophils Percent Auto 3.1 % (2-4); Hematocrit 41.3 % (36-46); Lymphocytes Absolute Auto 2100 /uL (1100-4500); Lymphocytes Percent Auto 41.4 % (25-40); Mean Corpuscular Hemoglobin 32.3 PG (26-34); Monocytes Absolute Auto 400 /uL (0-900); Monocytes Percent Auto 8.6 % (3-14); Neutrophils Absolute Auto 2300 /uL (1500-7000); Neutrophils Percent Auto 46.2 % (50-75); Platelet Count 167 X10^3/uL (150-400); Red Blood Cell Count 4.35 X10^6/uL (4.0-5.2); Red Cell Distribution Width 14.5 % (11.6-14.8); White Blood Cell Count 5.1 X10^3/uL (4.5-11.0)
[2023-03-12 10:52] LABS: Alanine Aminotransferase 23 IU/L (<35); Albumin 4.3 g/dL (3.5-5.0); Albumin Globulin Ratio 1.4 (1.0-2.8); Alkaline Phosphatase 87 U/L (38-126); Aspartate Aminotransferase 30 IU/L (14-36); BUN Creatinine Ratio 25.4 (6-22); Bilirubin Total 0.6 mg/dL (0.2-1.3); Blood Urea Nitrogen 18 mg/dL (7-17); COVID19 -Nasal RAPID Negative (Negative); Calcium 10.4 mg/dL (8.4-10.2); Carbon Dioxide 32 mmol/L (22-32); Chloride 102 mmol/L (98-107); Creatine Kinase 24 U/L (30-135); Estimated Glomerular Filt Rate > 60 mL/min (>60); Globulin 3.1 g/dL (1.7-4.1); Glucose 100 mg/dL (80-110); HEMOLYSIS < 15 (0-50); Lipase 139 U/L (23-300); Magnesium 2.1 mg/dL (1.6-2.3); Potassium 3.8 mmol/L (3.4-5.1); Sodium 140 mmol/L (137-145); Total Protein 7.4 g/dL (6.3-8.2)
[2023-03-12 11:03] LABS: Prothrombin Time 11.3 SECONDS (10.1-12.7); Troponin I < 0.012 ng/mL (0.01-0.034)
[2023-03-12 11:06] LABS: PTT Partial Thromboplastin Tim 34 SECONDS (26-36)
[2023-03-12] MEDS: atenoloL 50 MG TABLET PO (11:10)
[2023-03-12 12:19] LABS: RBC Urine 0-1/HPF (0-5/HPF); Squamous Epithelial Cell Urine 1-5 /HPF (0-5/HPF); WBC Urine 5-10/HPF (0-5/HPF)
[2023-03-12 12:20] LABS: Bacteria Urine Many (>30); Culture Indicated Urine Specimen Cultured
[2023-03-12] MEDS: VALSARTAN 80 MG TABLET PO (12:29)
== END 2023-03-12 12:40 | disposition home or self-care (01) ==
PROVIDERS: Emergency Provider Emergency Medicine; Family Provider Family Medicine; PCP Family Medicine
DX: I10 Essential (primary) hypertension (principal); R07.9 Chest pain, unspecified; Z79.899 Other long term (current) drug therapy; Z20.822 Contact with and (suspected) exposure to COVID-19; M54.14 Radiculopathy, thoracic region
CPT/HCPCS: 36415; 71045; 80053; 81003; 81015; 82550; 83690; 83735; 84484; 85025; 85610; 85730; 87077; 87086; 87186; 87635; 93005; 99284; C9803; J3490

== ENCOUNTER → 2023-03-16 09:39 | Outpatient (CLI) | payer MEDICARE, SELFPAY ==
[2023-03-16 11:02] LABS: TSH w/ Reflex to FT4 8.63 uIU/mL (0.47-4.68)
[2023-03-16 11:28] LABS: Free T4, Direct Thyroxine 0.75 ng/dL (0.78-2.19)
== END ==
PROVIDERS: Family Provider Family Medicine; PCP Family Medicine; Referring Provider Family Medicine; Visit Provider Family Medicine
DX: E03.9 Hypothyroidism, unspecified (principal)
CPT/HCPCS: 36415; 84439; 84443

== ENCOUNTER 2023-04-21 09:53 | Outpatient (CLI) | payer MEDICARE, SELFPAY ==
[2023-04-21] VITALS (8 sets, daily range): BP systolic 145–179; BP diastolic 72–85; PULSE 55–61; RESP 16–22; TEMP 36.3; O2SAT 9–97
--- NOTE | 2023-04-21 09:55 | DI.RAD.S_ITS ---
PROCEDURE: PAIN C/T INTERLAMINAR INJECT INDICATIONS: SPONDYLOSIS COMPARISON: None. FINDINGS: Fluoroscopic spot filming was performed to verify placement of spinal needles at the T9-T10 left interlaminar level(s), as labeled on the films. Appropriate location(s) of the needle tip(s) was confirmed by injection of iodinated contrast. IMPRESSION: Access needle at the left T10-T11 left interlaminar space for translaminar epidural steroid injection. Dictated by: Sherrill Pfeiffer MD, PhD on 04/21/2023 at 13:51 Approved by: Sherrill Pfeiffer MD, PhD on 04/21/2023 at 13:51
[2023-04-21] MEDS: MIDAZOLAM 2 MG/2 ML VIAL 1 MG IV (10:44)
[2023-04-21] MEDS: IOPAMIDOL 15 ML VIAL 3 ML INJ (10:49)
[2023-04-21] MEDS: BUPIVACAINE 0.25% (PF) VIAL 2 ML INJ (10:49)
[2023-04-21] MEDS: DEXAMETHASONE 10 MG/ML VIAL 30 MG INJ (10:49)
--- NOTE | 2023-04-21 11:06 | PM.PROC.IR.1 ---
Date/Time/Diagnoses Date of procedure: 04/21/23 Time of procedure: 11:06 Pre-procedure diagnosis: Thoracic stenosis with HNP Post-procedure diagnosis: same Procedure Notes Procedure: Fluoroscopic guided, contrast controlled T8-9 translaminar epidural steroid injection with conscious sedation. Indications: Bettie is referred by Dr. Christine for treatment of thoracic DDD/DJD with radiculopathy Physician: Jamie Kirkpatrick Total Fluoroscopy time (seconds): 12 Total sedation minutes: 13 Complications: none Procedure in detail & Post-procedure care: DESCRIPTION OF PROCEDURE Fluoroscopic guided, contrast controlled T8-9 translaminar epidural steroid injection with conscious sedation. Following review of allergy review potential side effects and complications, including, but not necessarily limited to, infection, allergic reaction, local tissue breakdown, temporary as well as permanent nerve injury, stroke, paralysis and possible , the patient indicated that they understood and agreed to proceed. An informed consent document was signed by the patient, witnessed by the nurse, and placed in the patient's chart. Additionally other treatment options including modalities, medications and physical therapy were reviewed with the patient. After review of previous anaesthesic history and IV conscious sedation the patient was deemed safe to proceed with today's procedure with IV conscious sedation as ASA class II designation. Safety time-out was performed to confirm patient ID, procedure to be performed and site of procedure. IV sedation was accomplished with a combination of 1mg of Versed administered by the RN after DO order, titrated to patient comfort during the course of the procedure while the patient remained responsive to all verbal commands In the prone position, following sterile prep and drape of the thoracic region the T8-9 translaminar space was identified fluoroscopically. The skin was anesthetized via 25 gauge 1.5inch needle with 1% lidocaine solution. At this point a 22gauge epidural needle was atraumatically introduced and advanced under fluoroscopic guidance into the region of the T8-9 translaminar space depth was confirmed on lateral view. Radiographic data, including multiple fluoroscopic views of the thoracic spine, reveals spinal needle at the T8-9 translaminar space. Lateral views then showed the placement of the needle in the epidural space. Subsequent view show contrast material flowing superiorly and inferiorly in the epidural space. No vascular or intrathecal uptake is observed. At this point using loss of resistance technique with saline and the epidural space was entered. This was confirmed followed negative aspiration and injection of approximately 1.5cc of Isovue 200 showed excellent epidural flow without vascular or intrathecal uptake. At this point, 1cc of 1% lidocaine solution was admitted as a test dose and the patient was observed for an appropriate period of time without signs or symptoms of complications, including abdominal pain, shortness of breath, bilateral upper and lower extremity weakness, nausea and vomiting, prior to steroid injection. Subsequently, 3cc or 30mg of dexamethasone was then injected without incident. The patient tolerated the procedure well without signs of complications and subsequently was transferred to the recovery room for further monitoring. The patient was then transferred to the recovery area with their observed for an appropriate time after the injection. Patient reported a VAS score of 7 prior to the procedure and post-procedure VAS of 2.
== END 2023-04-21 11:26 | disposition home or self-care (01) ==
LOC: RAD 09:55
PROVIDERS: Family Provider Family Medicine; PCP Family Medicine; Referring Provider Physical Medicine & Rehabilitation; Visit Provider Physical Medicine & Rehabilitation
DX: M48.04 Spinal stenosis, thoracic region; M51.14 Intervertebral disc disorders with radiculopathy, thoracic region; M47.24 Other spondylosis with radiculopathy, thoracic region
CPT/HCPCS: 62321; 99152; J1100; J2250; J3490

== ENCOUNTER → 2023-04-23 09:45 | Outpatient (CLI) | payer MEDICARE, SELFPAY ==
[2023-04-23 10:36] LABS: Add Manual Diff / Slide Review NO; Basophils Absolute Auto 100 /uL (0-100); Basophils Percent Auto 0.8 % (0-2); Eosinophils Absolute Auto 100 /uL (0-450); Eosinophils Percent Auto 1.2 % (2-4); Hematocrit 39.7 % (36-46); Hemoglobin 13.7 g/dL (12.0-16.0); Lymphocytes Absolute Auto 3100 /uL (1100-4500); Lymphocytes Percent Auto 37.8 % (25-40); Mean Corpuscular HGB Conc 34.6 % (30-36); Mean Corpuscular Hemoglobin 32.4 PG (26-34); Mean Corpuscular Volume 93.7 fL (80-100); Monocytes Absolute Auto 700 /uL (0-900); Monocytes Percent Auto 8.1 % (3-14); Neutrophils Absolute Auto 4200 /uL (1500-7000); Neutrophils Percent Auto 52.1 % (50-75); Platelet Count 192 X10^3/uL (150-400); Red Blood Cell Count 4.24 X10^6/uL (4.0-5.2); Red Cell Distribution Width 14.2 % (11.6-14.8); White Blood Cell Count 8.1 X10^3/uL (4.5-11.0)
[2023-04-23 10:57] LABS: Alanine Aminotransferase 23 IU/L (<35); Albumin 3.9 g/dL (3.5-5.0); Albumin Globulin Ratio 1.3 (1.0-2.8); Alkaline Phosphatase 80 U/L (38-126); Aspartate Aminotransferase 27 IU/L (14-36); BUN Creatinine Ratio 31.8 (6-22); Bilirubin Total 0.5 mg/dL (0.2-1.3); Blood Urea Nitrogen 28 mg/dL (7-17); Calcium 10.6 mg/dL (8.4-10.2); Carbon Dioxide 34 mmol/L (22-32); Chloride 99 mmol/L (98-107); Cholesterol 232 mg/dL (140-199); Estimated Glomerular Filt Rate > 60 mL/min (>60); Globulin 2.9 g/dL (1.7-4.1); Glucose 96 mg/dL (80-110); HDL Cholesterol 68 mg/dL (40-60); HEMOLYSIS < 15 (0-50); LDL Cholesterol Calculated 135 mg/dL (<100); Potassium 3.3 mmol/L (3.4-5.1); Sodium 138 mmol/L (137-145); Total Protein 6.8 g/dL (6.3-8.2); Triglycerides 143 mg/dL (35-150)
[2023-04-23 11:02] LABS: Creatinine Urine Random 78.3 mg/dL
[2023-04-23 11:05] LABS: Microalbumi Creatinin Ratio Ur 25.5 ug/mg CR (<30)
[2023-04-23 11:29] LABS: TSH w/ Reflex to FT4 1.49 uIU/mL (0.47-4.68)
== END ==
PROVIDERS: Family Provider Family Medicine; PCP Family Medicine; Referring Provider Family Medicine; Visit Provider Family Medicine
DX: E03.9 Hypothyroidism, unspecified (principal); E83.52 Hypercalcemia; I10 Essential (primary) hypertension
CPT/HCPCS: 36415; 80053; 80061; 82043; 82570; 84443; 85025

== ENCOUNTER → 2023-05-07 09:58 | Outpatient (CLI) | payer MEDICARE, SELFPAY ==
[2023-05-07 12:24] LABS: Alanine Aminotransferase 22 IU/L (<35); Albumin Globulin Ratio 1.5 (1.0-2.8); Alkaline Phosphatase 68 U/L (38-126); Aspartate Aminotransferase 29 IU/L (14-36); BUN Creatinine Ratio 29.3 (6-22); Bilirubin Total 0.7 mg/dL (0.2-1.3); Blood Urea Nitrogen 24 mg/dL (7-17); Calcium 10.6 mg/dL (8.4-10.2); Carbon Dioxide 34 mmol/L (22-32); Chloride 100 mmol/L (98-107); Estimated Glomerular Filt Rate > 60 mL/min (>60); Globulin 2.7 g/dL (1.7-4.1); Glucose 101 mg/dL (80-110); HEMOLYSIS < 15 (0-50); Potassium 3.8 mmol/L (3.4-5.1); Sodium 140 mmol/L (137-145); Total Protein 6.7 g/dL (6.3-8.2)
[2023-05-09 09:36] LABS: Calcium 10.5 mg/dL (8.7-10.3); Parathyroid Hormone, Intact 53 pg/mL (15-65)
== END ==
PROVIDERS: Family Provider Family Medicine; PCP Family Medicine; Referring Provider Family Medicine; Visit Provider Family Medicine
DX: E83.51 Hypocalcemia (principal); Z00.00 Encounter for general adult medical examination without abnormal findings; E78.6 Lipoprotein deficiency
CPT/HCPCS: 36415; 80053; 82310; 83970

== ENCOUNTER → 2023-07-14 09:49 | Outpatient (CLI) | payer MEDICARE, SELFPAY ==
[2023-07-14 11:58] LABS: BUN Creatinine Ratio 36.4 (6-22); Blood Urea Nitrogen 32 mg/dL (7-17); Calcium 11.5 mg/dL (8.4-10.2); Carbon Dioxide 30 mmol/L (22-32); Chloride 100 mmol/L (98-107); Estimated Glomerular Filt Rate > 60 mL/min (>60); Glucose 106 mg/dL (80-110); HEMOLYSIS < 15 (0-50); Potassium 3.4 mmol/L (3.4-5.1); Sodium 138 mmol/L (137-145)
== END ==
PROVIDERS: Family Provider Family Medicine; PCP Family Medicine; Referring Provider Family Medicine; Visit Provider Family Medicine
DX: E83.52 Hypercalcemia (principal)
CPT/HCPCS: 36415; 80048

== ENCOUNTER 2023-07-16 16:18 | Emergency (ER) | payer MEDICARE, SELFPAY ==
[2023-07-16] VITALS (18 sets, daily range): BP systolic 188–222; BP diastolic 74–108; PULSE 57–78; RESP 13–27; O2SAT 95–100; BMI 25.9
[2023-07-16 16:54] LABS: Add Manual Diff / Slide Review NO; Basophils Absolute Auto 100 /uL (0-100); Basophils Percent Auto 0.8 % (0-2); Eosinophils Absolute Auto 200 /uL (0-450); Eosinophils Percent Auto 2.6 % (2-4); Hematocrit 37.9 % (36-46); Hemoglobin 13.1 g/dL (12.0-16.0); Lymphocytes Absolute Auto 3100 /uL (1100-4500); Lymphocytes Percent Auto 39.4 % (25-40); Mean Corpuscular HGB Conc 34.5 % (30-36); Mean Corpuscular Hemoglobin 32.3 PG (26-34); Mean Corpuscular Volume 93.7 fL (80-100); Monocytes Absolute Auto 500 /uL (0-900); Neutrophils Absolute Auto 3900 /uL (1500-7000); Neutrophils Percent Auto 50.2 % (50-75); Platelet Count 243 X10^3/uL (150-400); Red Blood Cell Count 4.05 X10^6/uL (4.0-5.2); Red Cell Distribution Width 13.6 % (11.6-14.8); White Blood Cell Count 7.8 X10^3/uL (4.5-11.0)
[2023-07-16 17:17] LABS: Alanine Aminotransferase 26 IU/L (<35); Albumin 4.4 g/dL (3.5-5.0); Albumin Globulin Ratio 1.4 (1.0-2.8); Alkaline Phosphatase 64 U/L (38-126); Aspartate Aminotransferase 33 IU/L (14-36); BUN Creatinine Ratio 28.6 (6-22); Bilirubin Total 0.5 mg/dL (0.2-1.3); Blood Urea Nitrogen 24 mg/dL (7-17); Calcium 11.5 mg/dL (8.4-10.2); Carbon Dioxide 30 mmol/L (22-32); Chloride 101 mmol/L (98-107); Estimated Glomerular Filt Rate > 60 mL/min (>60); Globulin 3.1 g/dL (1.7-4.1); Glucose 108 mg/dL (80-110); HEMOLYSIS 18 (0-50); Potassium 3.1 mmol/L (3.4-5.1); Sodium 139 mmol/L (137-145); Total Protein 7.5 g/dL (6.3-8.2)
--- NOTE | 2023-07-16 17:54 | ED_ITS ---
HPI - Weakness General Chief complaint: Weakness Stated complaint: Weakness Time Seen by Provider: 07/16/23 17:53 Source: patient and EMS Mode of arrival: EMS History of Present Illness HPI Narrative: Patient 87-year-old female history of chronic ongoing back pain and anxiety aortic regurgitation presenting today with generalized weakness. She reports that she was on some antibiotics she had a tooth pulled about a week ago she started feeling a lot better and then she just feels generally weak over the last few days. She has chronic pain but not in any pain now. She denies any fever or chills. No painful or frequent urination. No more dental pain. She denies a cough or other symptoms. Related Data Home Medications Medication Instructions Recorded Confirmed phenazopyridine [Azo Urinary Pain 1 tab PO DAILY 11/21/19 07/15/23 Relief] aspirin 81 mg tablet,delayed 81 mg PO DAILY 12/15/19 07/15/23 release (Adult Aspirin Regimen) Prevegen 2 tab PO DAILY 01/13/20 07/15/23 cholecalciferol (vitamin D3) 50 50 mcg PO DAILY 01/13/20 07/15/23 mcg (2,000 unit) capsule coenzyme Q10 200 mg capsule (Co 200 mg PO BID 01/13/20 07/15/23 Q-10) vitamins A,C,Y-gtwq-zerxim 2,148 2 tab PO BID 01/13/20 07/15/23 mcg-113 mg-45 mg-17.4 mg tablet (PreserVision AREDS) Previous Rx's Medication Instructions Recorded valsartan 160 mg tablet 160 mg PO BID #180 tabs 03/17/23 levothyroxine 50 mcg tablet 50 mcg PO DAILY #90 tabs 04/30/23 Synthroid 50 mcg tablet 50 mcg PO DAILY #90 tabs 07/08/23 (levothyroxine) atenolol 50 mg tablet 50 mg PO BID #180 tabs 07/15/23 chlorthalidone 25 mg tablet 25 mg PO DAILY #90 tabs 07/15/23 cephalexin 500 mg capsule 500 mg PO BID 5 days #10 caps 07/16/23 Allergies Allergy/AdvReac Type Severity Reaction Status Date / Time Penicillins Allergy Severe Rash Verified 07/15/23 15:03 shellfish derived Allergy Intermediate Rash Verified 07/15/23 15:03 latex [LATEX] Allergy Mild WELTS Verified 07/15/23 15:03 morphine [MORPHINE] Allergy Mild WELTS Verified 07/15/23 15:03 Sulfa (Sulfonamide Allergy Mild UNK Verified 07/15/23 15:03 Antibiotics) [SULFA (SULFONAMIDE ANTIBIOTICS)] alendronate sodium Allergy Unknown Verified 07/15/23 15:03 [From FOSAMAX] acetaminophen [From Percocet] AdvReac Intermediate altered Verified 07/15/23 15:03 mental status oxycodone [From Percocet] AdvReac Intermediate altered Verified 07/15/23 15:03 mental status FISH Allergy Mild Rash Uncoded 07/15/23 15:03 Review of Systems Review of Systems ROS Unobtainable: All systems reviewed & are unremarkable except as noted in HPI and below Patient History Medical History Acute bilateral thoracic back pain Anxiety Aortic regurgitation Bilateral hip pain Bilateral leg cramps Body posture problem Cervical somatic dysfunction Chest wall pain, chronic Chicken pox Chronic back pain Chronic back pain Chronic thoracic spine pain Closed T11 fracture Colon polyps (~1994) Compression fracture of T9 vertebra Cranial somatic dysfunction Dizziness Family history of pancreatitis Fractures Generalized pruritus Hearing loss History of urinary incontinence (~2015) Hypercalcemia Hypothyroidism (~1982) Insomnia Kyphosis Large hiatal hernia Left elbow pain Leg cramps Loss of vision Low back pain with bilateral sciatica Macular degeneration (~2000) Measles Mumps Osteoporosis Pain of both breasts Pain of left breast Pelvic somatic dysfunction Polio (~194) Pulmonary nodule, right Rib pain on left side Rib pain on left side Rib pain on right side Scoliosis Segmental and somatic dysfunction of abdomen and other regions Segmental and somatic dysfunction of lumbar region Segmental and somatic dysfunction of rib cage Segmental and somatic dysfunction of sacral region Segmental and somatic dysfunction of thoracic region Shoulder pain, left Stiff neck Thoracic radiculitis Thoracic spine fracture Transient ischemic attack (~1997) Upper extremity somatic dysfunction UTI (urinary tract infection) Vitiligo (~1975) Surgical History Anesthesia History of bladder suspension procedure (~1998) History of cataract removal with insertion of prosthetic lens (~2014) History of elbow surgery (~08/2015) History of hip replacement (~2004) History of kyphoplasty (~2002) History of surgery on right wrist (~10/14/19) Status post vertebroplasty Family History Father Suicide Mental health problem Mother Pancreatitis Brother No problems noted. Brother No problems noted. Sister Mental health problem Grandmother Senility Social History household members: none Smoking Status: Never smoker Smoking Status: Never smoker alcohol intake frequency: 0-2 drinks per day Alcohol type: wine Substance Use Type: does not use Exam Initial Vital Signs Initial Vital Signs: Vital Signs Pulse Rate 61 07/16/23 16:37 Respiratory Rate 18 07/16/23 16:37 Blood Pressure 204/89 H 07/16/23 16:37 Pulse Oximetry 96 07/16/23 16:37 Oxygen Delivery Method Room Air 07/16/23 16:37 GENERAL: Alert pleasant 87-year-old female and in no acute distress. HEENT: Head atraumatic,EOMI, pupils reactive, face symmetric, moist mucous membranes CARDIOVASCULAR: Regular rate and rhythm without murmurs, rubs or gallops. RESPIRATORY: Breath sounds equal bilaterally, no wheezes rales or rhonchi. ABDOMEN: Soft, nontender. Normoactive bowel sounds all 4 quadrants. No guarding or rebound. EXTREMITIES: Normal range of motion, no clubbing or edema. Neurovascularly intact BACK: No vertebral tenderness no step-offs no tenderness over right or left rib NEUROLOGICAL: Alert and oriented x4. SKIN: Warm, dry, no laceration, no petechiae, no rashes or lesions. Course Orders Ordered: Discontinued Medications Sodium Chloride (Normal Saline 0.9%) 1,000 mls @ 1,000 mls/hr IV BOLUS ONE Stop: 07/16/23 19:07 Last Infusion: 07/16/23 20:24 Dose: 0 mls/hr Documented By: Admin: 07/16/23 18:18 Dose: 1,000 mls/hr Documented By: Ceftriaxone Sodium 1,000 mg/ (Sodium Chloride) 100 mls @ 200 mls/hr IV NOW ONE Stop: 07/16/23 19:15 Last Infusion: 07/16/23 20:24 Dose: 0 mls/hr Documented By: Admin: 07/16/23 19:32 Dose: 200 mls/hr Documented By: Vital Signs Vital signs: Vital Signs - 8 hr 07/16/23 21:30 07/16/23 21:31 07/16/23 21:31 Pulse Rate 57 L 57 L Respiratory Rate 14 14 Blood Pressure 194/84 H Pulse Oximetry 95 95 MDM - Weakness Lab Data 07/16/23 16:47 07/16/23 16:47 Labs: Lab Results 07/16/23 07/16/23 07/16/23 Range/Units 16:47 16:47 18:25 WBC 7.8 (4.5-11.0) X10^3/uL RBC 4.05 (4.0-5.2) X10^6/uL Hgb 13.1 (12.0-16.0) g/dL Hct 37.9 (36-46) % MCV 93.7 (80-100) fL MCH 32.3 (26-34) PG MCHC 34.5 (30-36) % RDW 13.6 (11.6-14.8) % Plt Count 243 (150-400) X10^3/uL Neut % (Auto) 50.2 (50-75) % Lymph % (Auto) 39.4 (25-40) % [place] % (Auto) 7.0 (3-14) % Eos % (Auto) 2.6 (2-4) % Baso % (Auto) 0.8 (0-2) % Neut # (Auto) 3900 (5033-1329) /uL Lymph # (Auto) 3100 (7833-2292) /uL [place] # (Auto) 500 (0-900) /uL Eos # (Auto) 200 (0-450) /uL Baso # (Auto) 100 (0-100) /uL Sodium 139 (137-145) mmol/L Potassium 3.1 L (3.4-5.1) mmol/L Chloride 101 (98-107) mmol/L Carbon Dioxide 30 (22-32) mmol/L BUN 24 H (7-17) mg/dL Creatinine 0.84 (0.52-1.04) mg/dL Estimated GFR > 60 (>60) mL/min BUN/Creatinine Ratio 28.6 H (6-22) Glucose 108 (80-110) mg/dL Calcium 11.5 H (8.4-10.2) mg/dL Total Bilirubin 0.5 (0.2-1.3) mg/dL AST 33 (14-36) IU/L ALT 26 (<35) IU/L Alkaline Phosphatase 64 (38-126) U/L Total Protein 7.5 (6.3-8.2) g/dL Albumin 4.4 (3.5-5.0) g/dL Globulin 3.1 (1.7-4.1) g/dL Albumin/Globulin Ratio 1.4 (1.0-2.8) Urine Color Urine Appearance Urine pH (4.5-8.0) Ur Specific [place] (1.000-1.035) Urine Protein (Negative) Urine Glucose (UA) (Negative) g/dL Urine Ketones (NEGATIVE) Urine Occult Blood (Negative) Urine Nitrate (Negative) Urine Bilirubin (NEGATIVE) Urine Urobilinogen (0.2) E.U./dL Ur Leukocyte Esterase (NEGATIVE) Urine RBC (0-5/HPF) Urine WBC (0-5/HPF) Ur Squamous Epith Cells (0-5/HPF) Urine Bacteria (None) Ur Culture Indicated? SARS-CoV-2 (PCR) Negative (Negative) Influenza A (RT-PCR) Flu a negative (NEGATIVE) Influenza B (RT-PCR) Flu b negative (NEGATIVE) RSV (PCR) Negative (Negative) 07/16/23 Range/Units 18:40 WBC (4.5-11.0) X10^3/uL RBC (4.0-5.2) X10^6/uL Hgb (12.0-16.0) g/dL Hct (36-46) % MCV (80-100) fL MCH (26-34) PG MCHC (30-36) % RDW (11.6-14.8) % Plt Count (150-400) X10^3/uL Neut % (Auto) (50-75) % Lymph % (Auto) (25-40) % [place] % (Auto) (3-14) % Eos % (Auto) (2-4) % Baso % (Auto) (0-2) % Neut # (Auto) (2571-0817) /uL Lymph # (Auto) (0416-4071) /uL [place] # (Auto) (0-900) /uL Eos # (Auto) (0-450) /uL Baso # (Auto) (0-100) /uL Sodium (137-145) mmol/L Potassium (3.4-5.1) mmol/L Chloride (98-107) mmol/L Carbon Dioxide (22-32) mmol/L BUN (7-17) mg/dL Creatinine (0.52-1.04) mg/dL Estimated GFR (>60) mL/min BUN/Creatinine Ratio (6-22) Glucose (80-110) mg/dL Calcium (8.4-10.2) mg/dL Total Bilirubin (0.2-1.3) mg/dL AST (14-36) IU/L ALT (<35) IU/L Alkaline Phosphatase (38-126) U/L Total Protein (6.3-8.2) g/dL Albumin (3.5-5.0) g/dL Globulin (1.7-4.1) g/dL Albumin/Globulin Ratio (1.0-2.8) Urine Color Yellow Urine Appearance Clear Urine pH 6.5 (4.5-8.0) Ur Specific [place] 1.010 (1.000-1.035) Urine Protein Negative (Negative) Urine Glucose (UA) Negative (Negative) g/dL Urine Ketones Negative (NEGATIVE) Urine Occult Blood Negative (Negative) Urine Nitrate Positive H (Negative) Urine Bilirubin Negative (NEGATIVE) Urine Urobilinogen 0.2 (0.2) E.U./dL Ur Leukocyte Esterase 2+ H (NEGATIVE) Urine RBC 0-1/hpf (0-5/HPF) Urine WBC 10-30/hpf H (0-5/HPF) Ur Squamous Epith Cells 5-10 /hpf H (0-5/HPF) Urine Bacteria Many (>30) H (None) Ur Culture Indicated? Specimen cultured SARS-CoV-2 (PCR) (Negative) Influenza A (RT-PCR) (NEGATIVE) Influenza B (RT-PCR) (NEGATIVE) RSV (PCR) (Negative) Imaging Data Chest x-ray: Radiologist Impression: PROCEDURE:? XR CHEST 2V ? INDICATIONS:? pain ? TECHNIQUE:? 2 views of the chest were acquired.? ? COMPARISON:? [facility], CR, XR CHEST 1V, 03/12/2023, 10:22.? [facility], CR, XR CHEST 1V, 05/13/2022, 0:19. ? FINDINGS:? ? Surgical changes and devices:? None.? ? Lungs and pleura:? Lungs are clear.? No pleural effusions or pneumothorax.? ? Mediastinum:? Mediastinal contours are normal.? Heart size is normal.? ? Bones and chest wall:? No suspicious bony abnormalities.? Vertebroplasty cement at T11.? Soft tissues appear unremarkable.? ? ? IMPRESSION:? No acute cardiopulmonary abnormality is seen. ? ? Dictated by: Lloyd Allen M.D. on 07/16/2023 at 19:42 ? ? ECG Data Interpretation: Normal sinus rhythm rate [address] changes left bundle-branch block similar to previous EKGs MDM Narrative Medical decision making narrative: Patient 79-year-old female presenting today with ongoing weakness. She has overall a benign physical exam mildly weak. Blood work has been reviewed without any clinical significant abnormalities. She is nitrates leukocytes and bacteria in her urine consistent with UTI. No evidence of sepsis. She is given a dose of IV Rocephin and fluids in the ED. She is able to tolerate fluids. At this time there is no evidence of sepsis. No need for admission. Negative viral panel. Multiple etiologies for patient's symptoms considered including, but not limited to: infection, cva, electrolyte abnormality, Prior Charts reviewed: Labs reviewed and interpreted by myself:yes Imaging reviewed:n/a Consultations:n/a Patient's symptoms improved over duration of stay with above-stated therapies. Findings and discharge diagnosis discussed with patient/family followed by verbalization of understanding Return precautions discussed with patient/family whom verbalize understanding of diagnosis and plan Discharge Plan Departure Patient Disposition: Home Clinical Impression: Acute UTI Instructions: DI for Urinary Tract Infection (UTI) Activity Restrictions/Additional Instructions: *You have been diagnosed with UTI *What to do: At this time you do have a bladder infection please stay hydrated. No need for admission at this time. *Continue to take medications as directed Keflex 500 mg twice a day for 5 days *Follow up with your primary care provider in 2-3 days or call [phone] *Return to ER if you should have increasing weakness not tolerating fluids or any new, worsening or concerning symptoms Prescriptions: New cephalexin 500 mg capsule 500 mg PO BID 5 Days Qty: 10 0RF No Action phenazopyridine 1 tab PO DAILY coenzyme Q10 [Co Q-10] 200 mg capsule 200 mg PO BID aspirin [Adult Aspirin Regimen] 81 mg tablet,delayed release (DR/EC) 81 mg PO DAILY PreserVision AREDS [id number],160-113-100 [id number] tablet 2 tab PO BID Prevegen 2 tab PO DAILY cholecalciferol (vitamin D3) 50 mcg (2,000 unit) capsule 50 mcg PO DAILY valsartan 160 mg tablet 160 mg PO BID Qty: 180 1RF atenolol 50 mg tablet 50 mg PO BID Qty: 180 1RF chlorthalidone 25 mg tablet 25 mg PO DAILY Qty: 90 0RF levothyroxine 50 mcg tablet 50 mcg PO DAILY Qty: 90 3RF Hold Instructions: patient insists name brand only at this time, regardless $ levothyroxine [Synthroid] 50 mcg tablet 50 mcg PO DAILY Qty: 90 3RF Referrals: Josias Christine MD [Primary Care Provider] - Stand Alone Forms: Patient Portal/API
[2023-07-16] MEDS: SODIUM CHLORIDE 0.9% 1,000 ML 1000 ML IV (18:18)
--- NOTE | 2023-07-16 18:47 | DI.RAD.S_ITS ---
PROCEDURE: XR CHEST 2V INDICATIONS: pain TECHNIQUE: 2 views of the chest were acquired. COMPARISON: , CR, XR CHEST 1V, 03/12/2023, 10:22. , CR, XR CHEST 1V, 05/13/2022, 0:19. FINDINGS: Surgical changes and devices: None. Lungs and pleura: Lungs are clear. No pleural effusions or pneumothorax. Mediastinum: Mediastinal contours are normal. Heart size is normal. Bones and chest wall: No suspicious bony abnormalities. Vertebroplasty cement at T11. Soft tissues appear unremarkable. IMPRESSION: No acute cardiopulmonary abnormality is seen. Dictated by: Lloyd Allen M.D. on 07/16/2023 at 19:42 Approved by: Lloyd Allen M.D. on 07/16/2023 at 19:44
[2023-07-16 18:56] LABS: Appearance Urine UA CLEAR; Bilirubin Urine UA NEGATIVE (NEGATIVE); Color Urine UA YELLOW; Glucose Urine UA NEGATIVE (Negative); Ketones Urine UA NEGATIVE (NEGATIVE); Leukocyte Esterase Urine UA 2+ (NEGATIVE); Nitrite Urine UA POSITIVE (Negative); Occult Blood Urine UA NEGATIVE (Negative); Protein Urine UA NEGATIVE (Negative); Urobilinogen Urine UA 0.2 E.U./dL (0.2)
[2023-07-16 18:59] LABS: pH Urine UA 6.5 (4.5-8.0)
[2023-07-16 19:09] LABS: Bacteria Urine Many (>30); Culture Indicated Urine Specimen Cultured; RBC Urine 0-1/HPF (0-5/HPF); Squamous Epithelial Cell Urine 5-10 /HPF (0-5/HPF); WBC Urine 10-30/HPF (0-5/HPF)
[2023-07-16] MEDS: cefTRIAXone 1,000 MG in SODIUM CHLORIDE 0.9% 100 ML 200 MG IV (19:32)
[2023-07-16 19:34] LABS: Influenza A - CEPHEID Flu A NEGATIVE (NEGATIVE); Influenza B - CEPHEID Flu B NEGATIVE (NEGATIVE); Respiratory Syncytial Virus Negative (Negative)
[2023-07-16 19:36] LABS: COVID-19 CEPHEID 4-PLEX PCR Negative (Negative)
--- NOTE | 2023-07-16 19:44 | PC.NURSE ---
Pt took own meds brought from home that included her evening BP meds. Okay per Provider.
== END 2023-07-16 22:08 | disposition home or self-care (01) ==
PROVIDERS: Emergency Medicine; Emergency Provider Emergency Medicine; Family Provider Family Medicine; PCP Family Medicine
DX: N39.0 Urinary tract infection, site not specified (principal)
CPT/HCPCS: 0241U; 71046; 80053; 81001; 85025; 87077; 87086; 87186; 93005; 96365; 99284; J0696

== ENCOUNTER 2023-07-17 13:20 | Emergency (ER) | payer MEDICARE, SELFPAY ==
[2023-07-17 13:26] VITALS: BP 202/87; PULSE 69; RESP 16; TEMP 36.6; O2SAT 97; BMI 25.4
--- NOTE | 2023-07-17 13:33 | ED.EXTPRO ---
HPI - Extremity Problem General Chief complaint: Extremity Problem,Nontraumatic Stated complaint: Lump Below L Knee, R/O DVT Time Seen by Provider: 07/17/23 13:33 Source: patient and EMS Mode of arrival: EMS History of Present Illness HPI Narrative: 79-year-old female never smoker with history of hypertension and recent diagnosis of UTI presents for evaluation of a bump she noticed on the medial aspect of her left knee. She arrives by EMS stating that she would noticed this bump just prior to her arrival. She does have a history of postoperative DVT and pulmonary emboli and was concerned therefore wanted to be evaluated. She denies any dizziness, weakness or lightheadedness. She denies any chest pain or shortness of breath. She denies any cough, fever or chills. She states she can barely feel the bump anymore and denies any redness, warmth or swelling Related Data Home Medications Medication Instructions Recorded Confirmed phenazopyridine [Azo Urinary Pain 1 tab PO DAILY 11/21/19 07/15/23 Relief] aspirin 81 mg tablet,delayed 81 mg PO DAILY 12/15/19 07/15/23 release (Adult Aspirin Regimen) Prevegen 2 tab PO DAILY 01/13/20 07/15/23 cholecalciferol (vitamin D3) 50 50 mcg PO DAILY 01/13/20 07/15/23 mcg (2,000 unit) capsule coenzyme Q10 200 mg capsule (Co 200 mg PO BID 01/13/20 07/15/23 Q-10) vitamins A,C,[id number]-[id number]-lmxuoy 2,148 2 tab PO BID 01/13/20 07/15/23 mcg-113 mg-45 mg-17.4 mg tablet (PreserVision AREDS) Previous Rx's Medication Instructions Recorded valsartan 160 mg tablet 160 mg PO BID #180 tabs 03/17/23 levothyroxine 50 mcg tablet 50 mcg PO DAILY #90 tabs 04/30/23 Synthroid 50 mcg tablet 50 mcg PO DAILY #90 tabs 07/08/23 (levothyroxine) atenolol 50 mg tablet 50 mg PO BID #180 tabs 07/15/23 chlorthalidone 25 mg tablet 25 mg PO DAILY #90 tabs 07/15/23 cephalexin 500 mg capsule 500 mg PO BID 5 days #10 caps 07/16/23 Allergies Allergy/AdvReac Type Severity Reaction Status Date / Time Penicillins Allergy Severe Rash Verified 07/15/23 15:03 shellfish derived Allergy Intermediate Rash Verified 07/15/23 15:03 latex [LATEX] Allergy Mild WELTS Verified 07/15/23 15:03 morphine [MORPHINE] Allergy Mild WELTS Verified 07/15/23 15:03 Sulfa (Sulfonamide Allergy Mild UNK Verified 07/15/23 15:03 Antibiotics) [SULFA (SULFONAMIDE ANTIBIOTICS)] alendronate sodium Allergy Unknown Verified 07/15/23 15:03 [From FOSAMAX] acetaminophen [From Percocet] AdvReac Intermediate altered Verified 07/15/23 15:03 mental status oxycodone [From Percocet] AdvReac Intermediate altered Verified 07/15/23 15:03 mental status FISH Allergy Mild Rash Uncoded 07/15/23 15:03 Review of Systems Review of Systems Narrative: GENERAL: Denies chills, fatigue, malaise, fever, sweats. HEENT: Denies sinus pain, ear pain, sore throat, difficulty swallowing, dizziness. RESPIRATORY: Denies dyspnea, cough, wheezing, hemoptysis, sputum. CARDIOVASCULAR: See HPI GASTROINTESTINAL: Denies nausea, vomiting, abdominal pain, diarrhea, constipation, melena. : Denies dysuria, frequency, incontinence, hematuria, urinary retention. MUSCULOSKELETAL: See HP SKIN: Denies rash, skin lesions, or other NEUROLOGIC: Denies weakness, headache, numbness, change in speech, confusion, seizures, incoordination. PSYCHIATRIC: No concerning psychosocial issues. 12 point review of systems is negative except for those stated above Patient History Medical History Acute bilateral thoracic back pain Anxiety Aortic regurgitation Bilateral hip pain Bilateral leg cramps Body posture problem Cervical somatic dysfunction Chest wall pain, chronic Chicken pox Chronic back pain Chronic back pain Chronic thoracic spine pain Closed T11 fracture Colon polyps (~1994) Compression fracture of T9 vertebra Cranial somatic dysfunction Dizziness Family history of pancreatitis Fractures Generalized pruritus Hearing loss History of urinary incontinence (~2015) Hypercalcemia Hypothyroidism (~1982) Insomnia Kyphosis Large hiatal hernia Left elbow pain Leg cramps Loss of vision Low back pain with bilateral sciatica Macular degeneration (~2000) Measles Mumps Osteoporosis Pain of both breasts Pain of left breast Pelvic somatic dysfunction Polio (~1946) Pulmonary nodule, right Rib pain on left side Rib pain on left side Rib pain on right side Scoliosis Segmental and somatic dysfunction of abdomen and other regions Segmental and somatic dysfunction of lumbar region Segmental and somatic dysfunction of rib cage Segmental and somatic dysfunction of sacral region Segmental and somatic dysfunction of thoracic region Shoulder pain, left Stiff neck Thoracic radiculitis Thoracic spine fracture Transient ischemic attack (~1997) Upper extremity somatic dysfunction UTI (urinary tract infection) Vitiligo (~1975) Surgical History Anesthesia History of bladder suspension procedure (~1998) History of cataract removal with insertion of prosthetic lens (~2014) History of elbow surgery (~08/2015) History of hip replacement (~2004) History of kyphoplasty (~2002) History of surgery on right wrist (~10/14/19) Status post vertebroplasty Family History Father Suicide Mental health problem Mother Pancreatitis Brother No problems noted. Brother No problems noted. Sister Mental health problem Grandmother Senility Social History household members: none Smoking Status: Never smoker Smoking Status: Never smoker alcohol intake frequency: 0-2 drinks per day Alcohol type: wine Substance Use Type: does not use Exam Narrative Exam Narrative: GEN: AOx3 and in mild distress EYES: Pupils are equal, round, and reactive to light and accommodation. Extraoccular muscles are intact bilaterally. There is no subconjunctival hemorrhage or exudate. CHEST: Lungs are clear to auscultation bilaterally and free of wheezes, rales, or rhonchi. Heart rate is regular rhythm, there are no murmurs, clicks, rubs, or gallops. There is no chest wall tenderness. ABD: Abdomen is soft and nontender. There is no guarding or rebound. Bowel sounds are normal in all 4 quadrants. There is no mass or organomegaly. EXT: No obvious swelling or redness of left lower extremity, very minimally tender inferior medial right knee, no obvious external abnormality, no ligamentous instability SKIN: Warm, pink, and dry. No erythema or rash Initial Vital Signs Initial Vital Signs: Vital Signs Temperature 98 F 07/17/23 13:26 Pulse Rate 69 07/17/23 13:26 Respiratory Rate 16 07/17/23 13:26 Blood Pressure 202/87 H 07/17/23 13:26 Pulse Oximetry 97 07/17/23 13:26 Oxygen Delivery Method Room Air 07/17/23 13:26 Course Vital Signs Vital signs: Vital Signs - 8 hr 07/17/23 13:26 Temperature 98 F Pulse Rate 69 Respiratory Rate 16 Blood Pressure 202/87 H Pulse Oximetry 97 Oxygen Delivery Method Room Air MDM - Extremity (Nontraumatic) MDM Narrative Medical decision making narrative: [87] year old patient presents with briefly noted lump by left knee, concern for DVT Multiple etiologies for patient's symptoms considered including, but not limited to: [DVT versus cellulitis versus Anglin cyst versus other] Prior Charts reviewed in our EMR Primary Historian: patient Imaging reviewed: Ultrasound without evidence of DVT, there is a small fluid collection noted Patient's symptoms improved over duration of stay with above-stated therapies. 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 As we discussed your history and physical exam are reassuring and the ultrasound shows no evidence of clot ] *What to do: *Please continue to take your regular medications as directed. [ ] New medication prescriptions sent to your pharmacy: [ ] [ ] New medication written as a paper prescription [ ] No new medications given *Please follow up with your primary care provider in 2-3 days, call for an appointment. Let them know you were seen in the Emergency Department and that we ask that you be seen in follow up. We will electronically transmit a record of today's note if your PCP is in our system *Return to Emergency Department if you should have any new, worsening or concerning symptoms, such as [fever greater than 101 F, shaking chills, worsening pain, persistent vomiting or other bothersome symptoms] Prescriptions: No Action phenazopyridine 1 tab PO DAILY coenzyme Q10 [Co Q-10] 200 mg capsule 200 mg PO BID aspirin [Adult Aspirin Regimen] 81 mg tablet,delayed release (DR/EC) 81 mg PO DAILY PreserVision AREDS 7,160-113-100 [id number]-[id number] tablet 2 tab PO BID Prevegen 2 tab PO DAILY cholecalciferol (vitamin D3) 50 mcg (2,000 unit) capsule 50 mcg PO DAILY valsartan 160 mg tablet 160 mg PO BID Qty: 180 1RF atenolol 50 mg tablet 50 mg PO BID Qty: 180 1RF chlorthalidone 25 mg tablet 25 mg PO DAILY Qty: 90 0RF levothyroxine 50 mcg tablet 50 mcg PO DAILY Qty: 90 3RF Hold Instructions: patient insists name brand only at this time, regardless $ levothyroxine [Synthroid] 50 mcg tablet 50 mcg PO DAILY Qty: 90 3RF cephalexin 500 mg capsule 500 mg PO BID 5 Days Qty: 10 0RF Referrals: Josias Christine MD [Primary Care Provider] -
--- NOTE | 2023-07-17 13:35 | DI.US.S_ITS ---
PROCEDURE: US PERIPH VENOUS LOW EXTREM LT INDICATIONS: LEFT LOWER EXTREMITY PAIN AND EDEMA TECHNIQUE: Real-time imaging, as well as color and pulse Doppler interrogation, were performed of the lower extremity deep veins from the inguinal ligament to the popliteal fossa, with documentation of the visualized calf veins. COMPARISON: None. FINDINGS: The common femoral, femoral, popliteal, and the visualized calf veins are normally compressible, and free of intraluminal thrombus. Color and pulse Doppler demonstrate normal phasic intraluminal flow. There is normal augmentation response to distal compression maneuver. Along the medial aspect of the left knee, there is a fluid collection seen measures 12 x 3 x 9 mm. No abnormal vascularity can be seen. IMPRESSION: No findings of lower extremity deep venous thrombosis. Mild fluid collection seen along the medial aspect knee, without abnormal vascularity. Dictated by: Dipak Rodriguez M.D. on 07/17/2023 at 13:46 Approved by: Dipak Rodriguez M.D. on 07/17/2023 at 13:46
== END 2023-07-17 15:32 | disposition home or self-care (01) ==
PROVIDERS: Emergency Provider Emergency Medicine; Family Provider Family Medicine; PCP Family Medicine
DX: M71.22 Synovial cyst of popliteal space [Baker], left knee (principal)
CPT/HCPCS: 93971; 99281; 99283

== ENCOUNTER → 2023-07-23 11:28 | Outpatient (CLI) | payer MEDICARE, SELFPAY ==
[2023-07-23 14:09] LABS: Blood Urea Nitrogen 20 mg/dL (7-17); Calcium 11.2 mg/dL (8.4-10.2); Carbon Dioxide 30 mmol/L (22-32); Chloride 96 mmol/L (98-107); Estimated Glomerular Filt Rate > 60 mL/min (>60); Glucose 87 mg/dL (80-110); HEMOLYSIS < 15 (0-50); Potassium 3.5 mmol/L (3.4-5.1); Sodium 135 mmol/L (137-145)
[2023-07-23 14:25] LABS: TSH w/ Reflex to FT4 7.78 uIU/mL (0.47-4.68)
[2023-07-23 15:02] LABS: Free T4, Direct Thyroxine 0.79 ng/dL (0.78-2.19)
== END ==
PROVIDERS: Family Provider Family Medicine; PCP Family Medicine; Referring Provider Family Medicine; Visit Provider Family Medicine
DX: E03.9 Hypothyroidism, unspecified (principal); E83.52 Hypercalcemia
CPT/HCPCS: 36415; 80048; 84439; 84443

== ENCOUNTER → 2023-07-24 11:43 | Outpatient (CLI) | payer MEDICARE, SELFPAY ==
[2023-07-24 15:48] LABS: Appearance Urine UA CLOUDY; Bilirubin Urine UA NEGATIVE (NEGATIVE); Color Urine UA YELLOW; Glucose Urine UA NEGATIVE (Negative); Ketones Urine UA NEGATIVE (NEGATIVE); Leukocyte Esterase Urine UA 3+ (NEGATIVE); Nitrite Urine UA NEGATIVE (Negative); Occult Blood Urine UA NEGATIVE (Negative); Protein Urine UA NEGATIVE (Negative); Urobilinogen Urine UA 0.2 E.U./dL (0.2)
[2023-07-24 16:01] LABS: pH Urine UA 6.5 (4.5-8.0)
[2023-07-24 16:02] LABS: RBC Urine None Seen (0-5/HPF); WBC Urine 30-100/HPF (0-5/HPF)
[2023-07-24 16:03] LABS: Bacteria Urine Many (>30); Culture Indicated Urine Specimen Cultured; Squamous Epithelial Cell Urine 10-30 /HPF (0-5/HPF)
== END ==
PROVIDERS: Family Provider Family Medicine; PCP Family Medicine; Referring Provider Family Medicine; Visit Provider Family Medicine
DX: N39.0 Urinary tract infection, site not specified (principal)
CPT/HCPCS: 81001; 87077; 87086; 87185; 87186

== ENCOUNTER → 2023-09-07 09:39 | Outpatient (CLI) | payer MEDICARE, SELFPAY ==
[2023-09-07 11:05] LABS: BUN Creatinine Ratio 21.5 (6-22); Blood Urea Nitrogen 17 mg/dL (7-17); Calcium 10.7 mg/dL (8.4-10.2); Carbon Dioxide 29 mmol/L (22-32); Chloride 105 mmol/L (98-107); Estimated Glomerular Filt Rate > 60 mL/min (>60); Glucose 90 mg/dL (80-110); HEMOLYSIS < 15 (0-50); Potassium 3.4 mmol/L (3.4-5.1); Sodium 140 mmol/L (137-145)
[2023-09-07 11:56] LABS: Free T4, Direct Thyroxine 0.69 ng/dL (0.78-2.19)
[2023-09-08 10:08] LABS: Ionized Calcium 5.5 mg/dL (4.5-5.6)
== END ==
PROVIDERS: Family Provider Family Medicine; PCP Family Medicine; Referring Provider Family Medicine; Visit Provider Family Medicine
DX: I10 Essential (primary) hypertension (principal); E03.9 Hypothyroidism, unspecified; E83.52 Hypercalcemia
CPT/HCPCS: 36415; 80048; 82330; 84439; 84443

== ENCOUNTER 2023-10-10 10:42 | Emergency (ER) | payer MEDICARE, SELFPAY ==
[2023-10-10] VITALS (16 sets, daily range): BP systolic 153–223; BP diastolic 66–99; PULSE 59–72; RESP 12–30; TEMP 36.7; O2SAT 95–100; BMI 25.4
--- NOTE | 2023-10-10 11:00 | ED_ITS ---
HPI - Back Pain/Injury General Chief Complaint: Back Pain/Injury Stated Complaint: Acute on Chronic Low Back Pain / HTN Time Seen by Provider: 10/10/23 10:49 Source: patient and EMS History of Present Illness HPI Narrative: Patient 87-year-old female history of hypertension acute on chronic pain presenting today with worsening back pain. She denies any injury. No urinary or bowel incontinence no numbness tingling or weakness. She is noted to be extremely hypertensive. But denies any chest pain or shortness of breath. She reports that she does not have pain unless she moves. She is not had anything for pain. She reports she has had previous back injections. She has known T11 and L3 injuries. She has definite pain when she coughs or sneezes. No urinary incontinence. Denies any falls. She reports that she has a back brace that she normally wears. She just changed her chair at the dining table to be more upright which she says has also helped. However this pain over last couple of days is new Related Data Home Medications Medication Instructions Recorded Confirmed aspirin 81 mg tablet,delayed 81 mg PO DAILY 12/15/19 10/01/23 release (Adult Aspirin Regimen) Prevegen 2 tab PO DAILY 01/13/20 10/01/23 coenzyme Q10 200 mg capsule (Co 200 mg PO BID 01/13/20 10/01/23 Q-10) vitamins A,C,L-pngc-xluxbr 2,148 2 tab PO BID 01/13/20 10/01/23 mcg-113 mg-45 mg-17.4 mg tablet (PreserVision AREDS) Previous Rx's Medication Instructions Recorded levothyroxine 50 mcg tablet 50 mcg PO DAILY #90 tabs 04/30/23 Synthroid 50 mcg tablet 50 mcg PO DAILY #90 tabs 07/08/23 (levothyroxine) atenolol 50 mg tablet 50 mg PO BID #180 tabs 07/15/23 lactobacillus combination no.9 4 4,000 mmu cells PO BID #10 caps 07/20/23 billion cell capsule (Adult 50 Plus Probiotic) valsartan 320 mg tablet 320 mg PO DAILY #90 tabs 10/09/23 Allergies Allergy/AdvReac Type Severity Reaction Status Date / Time Penicillins Allergy Severe Rash Verified 10/01/23 14:26 shellfish derived Allergy Intermediate Rash Verified 10/01/23 14:26 latex [LATEX] Allergy Mild WELTS Verified 10/01/23 14:26 morphine [MORPHINE] Allergy Mild WELTS Verified 10/01/23 14:26 Sulfa (Sulfonamide Allergy Mild UNK Verified 10/01/23 14:26 Antibiotics) [SULFA (SULFONAMIDE ANTIBIOTICS)] alendronate sodium Allergy Unknown Verified 10/01/23 14:26 [From FOSAMAX] acetaminophen [From Percocet] AdvReac Intermediate altered Verified 10/01/23 14:26 mental status oxycodone [From Percocet] AdvReac Intermediate altered Verified 10/01/23 14:26 mental status FISH Allergy Mild Rash Uncoded 10/01/23 14:26 Patient History Medical History Closed T11 fracture Compression fracture of T9 vertebra Pain of both breasts Family history of pancreatitis Thoracic radiculitis Shoulder pain, left Large hiatal hernia Chronic back pain Bilateral hip pain Chronic thoracic spine pain Hypercalcemia Loss of vision Dizziness Rib pain on right side Body posture problem Chest wall pain, chronic Pain of left breast Acute bilateral thoracic back pain Thoracic spine fracture Pulmonary nodule, right Low back pain with bilateral sciatica Generalized pruritus Insomnia Segmental and somatic dysfunction of rib cage Rib pain on left side Leg cramps Cervical somatic dysfunction Cranial somatic dysfunction Stiff neck Vitiligo (~1975) Anxiety Transient ischemic attack (~1997) Kyphosis Scoliosis Osteoporosis Fractures Chronic back pain Polio (~1945) Mumps Measles Chicken pox Macular degeneration (~2000) Hearing loss History of urinary incontinence (~2015) Colon polyps (~1994) Aortic regurgitation Upper extremity somatic dysfunction Segmental and somatic dysfunction of sacral region Pelvic somatic dysfunction Segmental and somatic dysfunction of abdomen and other regions Segmental and somatic dysfunction of thoracic region Segmental and somatic dysfunction of lumbar region Left elbow pain Hypothyroidism (~1982) Rib pain on left side Bilateral leg cramps UTI (urinary tract infection) Surgical History Status post vertebroplasty Anesthesia History of bladder suspension procedure (~1998) History of kyphoplasty (~2002) History of elbow surgery (~08/2015) History of surgery on right wrist (~10/14/19) History of hip replacement (~2004) History of cataract removal with insertion of prosthetic lens (~2014) Family History Father Suicide Mental health problem Mother Pancreatitis Brother No problems noted. Brother No problems noted. Sister Mental health problem Grandmother Senility Social History household members: none Smoking Status: Never smoker Smoking Status: Never smoker alcohol intake frequency: 0-2 drinks per day Alcohol type: wine Substance Use Type: does not use Exam Initial Vital Signs Initial Vital Signs: Vital Signs Pulse Oximetry 98 10/10/23 10:47 GENERAL: Alert 87-year-old female and in no acute distress. HEENT: Head atraumatic,EOMI, pupils reactive, face symmetric, moist mucous membranes CARDIOVASCULAR: Regular rate and rhythm without murmurs, rubs or gallops. RESPIRATORY: Breath sounds equal bilaterally, no wheezes rales or rhonchi. ABDOMEN: Soft, nontender. Normoactive bowel sounds all 4 quadrants. No guarding or rebound. EXTREMITIES: Normal range of motion, no clubbing or edema. Neurovascularly intact BACK: Mid point tenderness L2/3 tenderness no step-off NEUROLOGICAL: Alert and oriented x4.Normal gait and speech. SKIN: Warm, dry, no laceration, no petechiae, no rashes or lesions. Course Orders Ordered: ED Orders 10/10/23 11:02 XR lumbar spine 2-3V Stat 10/10/23 12:34 XR chest 1V Stat 10/10/23 12:41 Complete Blood Count AUTO DIFF Stat Comprehensive Metabolic Panel Stat Lipase Stat Troponin & CK Cardiac Panel Stat 10/10/23 12:46 EKG-12 Lead Stat Discontinued Medications Acetaminophen (Acetaminophen 325 Mg Tablet) 650 mg PO NOW ONE Stop: 10/10/23 11:03 Last Admin: 10/10/23 11:09 Dose: 650 mg Documented By: KF Vital Signs Vital signs: Vital Signs - 8 hr 10/10/23 10:47 10/10/23 10:48 10/10/23 10:48 Temperature Pulse Rate 72 Respiratory Rate Blood Pressure 223/95 H Pulse Oximetry 98 97 Oxygen Delivery Method 10/10/23 10:52 10/10/23 11:00 10/10/23 11:00 Temperature 98.0 F Pulse Rate 67 65 Respiratory Rate 18 12 Blood Pressure 223/95 H 188/82 H Pulse Oximetry 97 98 Oxygen Delivery Method Room Air 10/10/23 11:30 10/10/23 12:00 10/10/23 12:22 Temperature Pulse Rate 67 63 63 Respiratory Rate 28 H 30 H Blood Pressure Pulse Oximetry 95 96 Oxygen Delivery Method 10/10/23 12:22 10/10/23 12:30 10/10/23 12:30 Temperature Pulse Rate 63 Respiratory Rate 25 H Blood Pressure 195/80 H 191/86 H Pulse Oximetry 96 Oxygen Delivery Method 10/10/23 12:45 10/10/23 12:45 10/10/23 13:07 Temperature Pulse Rate 64 66 Respiratory Rate 22 22 Blood Pressure 183/86 H Pulse Oximetry 99 100 Oxygen Delivery Method 10/10/23 13:09 10/10/23 13:09 10/10/23 13:15 Temperature Pulse Rate 64 61 Respiratory Rate 17 15 Blood Pressure 193/83 H Pulse Oximetry 97 97 Oxygen Delivery Method 10/10/23 13:15 10/10/23 13:30 10/10/23 13:30 Temperature Pulse Rate 62 Respiratory Rate 22 Blood Pressure 173/82 H 169/79 H Pulse Oximetry 98 Oxygen Delivery Method 10/10/23 13:45 10/10/23 13:45 10/10/23 14:00 Temperature Pulse Rate 61 59 L Respiratory Rate 21 18 Blood Pressure 153/71 H Pulse Oximetry 96 99 Oxygen Delivery Method 10/10/23 14:00 10/10/23 14:16 10/10/23 14:16 Temperature Pulse Rate 63 Respiratory Rate 26 H Blood Pressure 161/66 H 182/99 H Pulse Oximetry 97 Oxygen Delivery Method MDM - Back Pain/Injury Lab Data 10/10/23 12:41 10/10/23 12:41 Labs: Lab Results 10/10/23 Range/Units 12:41 WBC 5.5 (4.5-11.0) X10^3/uL RBC 3.59 L (4.0-5.2) X10^6/uL Hgb 11.8 L (12.0-16.0) g/dL Hct 34.8 L (36-46) % MCV 96.9 (80-100) fL MCH 32.9 (26-34) PG MCHC 33.9 (30-36) % RDW 14.1 (11.6-14.8) % Plt Count 167 (150-400) X10^3/uL Neut % (Auto) 63.6 (50-75) % Lymph % (Auto) 26.5 (25-40) % Ocean % (Auto) 7.7 (3-14) % Eos % (Auto) 1.6 L (2-4) % Baso % (Auto) 0.6 (0-2) % Neut # (Auto) 3500 (3196-1616) /uL Lymph # (Auto) 1500 (2122-6788) /uL Ocean # (Auto) 400 (0-900) /uL Eos # (Auto) 100 (0-450) /uL Baso # (Auto) 0 (0-100) /uL Sodium 139 (137-145) mmol/L Potassium 3.7 (3.4-5.1) mmol/L Chloride 105 (98-107) mmol/L Carbon Dioxide 26 (22-32) mmol/L BUN 19 H (7-17) mg/dL Creatinine 0.71 (0.52-1.04) mg/dL Estimated GFR > 60 (>60) mL/min BUN/Creatinine Ratio 26.8 H (6-22) Glucose 100 (80-110) mg/dL Calcium 10.4 H (8.4-10.2) mg/dL Total Bilirubin 0.5 (0.2-1.3) mg/dL AST 31 (14-36) IU/L ALT 20 (<35) IU/L Alkaline Phosphatase 68 (38-126) U/L Total Creatine Kinase 37 (30-135) U/L Troponin I < 0.012 (0.01-0.034) ng/mL Total Protein 7.1 (6.3-8.2) g/dL Albumin 4.1 (3.5-5.0) g/dL Globulin 3.0 (1.7-4.1) g/dL Albumin/Globulin Ratio 1.4 (1.0-2.8) Lipase 209 (23-300) U/L Urine Dip Bedside Urine Glucose Negative Bedside Urine Bilirubin - Negative Bedside Urine Ketone - Negative Urine Specific Hudson 1.010 Bedside Urine Occult Blood - Negative Bedside Urine pH 6.0 Bedside Urine Protein - Negative Bedside Urine Urobilinogen - Negative Bedside Urine Nitrite - Negative Bedside Urine Leukocytes - Negative Esterase Imaging Data Extremity x-ray #1: Radiologist's Impression: PROCEDURE: XR LUMBAR SPINE 2-3V INDICATIONS: pain no injury TECHNIQUE: 3 views of the lumbar spine were acquired. COMPARISON: [facility], CT, CT ABDOMEN PELVIS W CON, 10/28/2022, 11:45. [facility], CT, CT THORACIC SPINE WO CON, 12/08/2022, 10:16. [facility], CR, XR LUMBAR SPINE 2-3V, 08/11/2022, 10:46. FINDINGS: Bones: Stable compression deformities can be seen at T11, L1, and L3. Prior vertebroplasty cement can be seen at T11. No alysa acute fractures are seen. 5 nonrib-bearing, lumbar type vertebral bodies are seen. There is mild retrolisthesis seen at L1-L2, L2-L3, L3-L4, and L5-S1. Mild dextroconvex scoliotic curvature is seen. Lower lumbar spine facet arthropathy is seen. Bilateral hip arthroplasty hardware is partially seen. Soft tissues: Overlying bowel gas pattern is normal. No suspicious soft tissue calcifications. IMPRESSION: Stable fractures, without an acute abnormality seen by plain film. If there is point tenderness (or other clinical suspicion for a fracture not seen on these images) then a dedicated CT could be considered for further evaluation, if clinically appropriate. Prior T11 vertebroplasty cement. Dictated by: Dipak Rodriguez M.D. on 10/10/2023 at 11:36 Chest x-ray: Radiologist's Impression: PROCEDURE: XR CHEST 1V INDICATIONS: chest pain TECHNIQUE: One view of the chest was acquired. COMPARISON: [facility], CR, XR LUMBAR SPINE 2-3V, 10/10/2023, 11:19. [facility], CR, XR CHEST 2V, 07/16/2023, 19:12. [facility], CR, XR CHEST 1V, 03/12/2023, 10:22. [facility], CT, CT THORACIC SPINE WO CON, 12/08/2022, 10:16. FINDINGS: The patient is rotated to the right for this study. Surgical changes and devices: T11 vertebroplasty cement is seen. Lungs and pleura: An incomplete inspiratory result is noted, causing a crowded appearance to the lung markings. No focal infiltrates are seen. No pneumothorax or significant pleural effusions are seen. Mediastinum: The cardiac contours are within normal limits. The aorta demonstrates calcification and tortuosity. Bones and chest wall: No suspicious bony lesions. Overlying soft tissues appear unremarkable. IMPRESSION: Low lung volumes, without an acute abnormality seen by plain film. Postoperative and degenerative changes are seen. Dictated by: Dipak Rodriguez M.D. on 10/10/2023 at 12:14 Approved by: Dipak Rodriguez M.D. on 10/10/2023 at 12:14 ECG Data Interpretation: EKG 1. Sinus rhythm rate 67 left bundle-branch block noted ST-elevation slightly more pronounced in V2 ST elevations, not quite Sgarbossa criteria EKG 2. Improved V2 changes rate 63 MDM Narrative Medical decision making narrative: Patient 79-year-old female has chronic ongoing back issues with known compression fractures. She denies any injury she is tender pinpoint along her lumbar spine. She is no neurologic deficits. X-ray confirms T11-L3 and L1 fractures. Patient was unaware of L1 I do not have any record suggesting an L1 fracture but no real imaging dedicated to the area. She is noted to be very hypertensive in the ED secondary to pain. Pain is definitely reproducible to palpation and worse with movement suspect musculoskeletal. Blood pressure has come down with Tylenol. Blood work was done initially EKG was done due to significant hypertension. Actually thought might be some mild EKG changes repeat EKG does not show any changes blood work has been reviewed overall reassuring with a negative troponin. At this time possibly a new L1 compression fracture. Recommend follow up with Orthopedics she already has back brace she had good pain relief with Tylenol recommend that she take Tylenol. She has an electric wheelchair with a walker. Family at bedside. Discharge Plan Departure Patient Disposition: Home Clinical Impression: Closed compression fracture of L1 vertebra Instructions: Vertebral Compression Fracture Activity Restrictions/Additional Instructions: *You have been diagnosed with L1 compression fracture *What to do: At this time please follow-up Dr. Gomes orthopedics in regards to your compression fractures. Please wear your brace when active as needed. Walk with a walker use her electric wheelchair. Please continue to check your blood pressure and monitor discuss with your primary care provider *Continue to take medications as directed Tylenol 650 mg every 4-6 hours if needed for [id number]-[id number] pain *Follow up with your primary care provider in 2-3 days or call [phone] [facility] *Return to ER if you should have increasing leg weakness worsening pain increasing falls or any new, worsening or concerning symptoms Prescriptions: No Action coenzyme Q10 [Co Q-10] 200 mg capsule 200 mg PO BID Adult 50 Plus Probiotic 4 billion cell capsule 4,000 mmu cells PO BID Qty: 10 0RF Rx Instructions: administer with a meal, take off schedule from antibiotics. Please deliver timo valsartan 320 mg tablet 320 mg PO DAILY Qty: 90 1RF aspirin [Adult Aspirin Regimen] 81 mg tablet,delayed release (DR/EC) 81 mg PO DAILY PreserVision AREDS 7,160-113-100 hulf-sd-hozw tablet 2 tab PO BID Prevegen 2 tab PO DAILY atenolol 50 mg tablet 50 mg PO BID Qty: 180 1RF levothyroxine 50 mcg tablet 50 mcg PO DAILY Qty: 90 3RF Hold Instructions: patient insists name brand only at this time, regardless $ levothyroxine [Synthroid] 50 mcg tablet 50 mcg PO DAILY Qty: 90 3RF Referrals: [facility] [Provider Group] Josias Christine MD [Primary Care Provider] - Jeri Gomes MD [Physician] - Stand Alone Forms: Patient Portal/API
[2023-10-10] MEDS: ACETAMINOPHEN 325 MG TABLET 650 MG PO (11:09)
--- NOTE | 2023-10-10 12:34 | DI.RAD.S_ITS ---
PROCEDURE: XR CHEST 1V INDICATIONS: chest pain TECHNIQUE: One view of the chest was acquired. COMPARISON: [facility], CR, XR LUMBAR SPINE 2-3V, 10/10/2023, 11:19. [facility], CR, XR CHEST 2V, 07/16/2023, 19:12. [facility], CR, XR CHEST 1V, 03/12/2023, 10:22. [facility], CT, CT THORACIC SPINE WO CON, 12/08/2022, 10:16. FINDINGS: The patient is rotated to the right for this study. Surgical changes and devices: T11 vertebroplasty cement is seen. Lungs and pleura: An incomplete inspiratory result is noted, causing a crowded appearance to the lung markings. No focal infiltrates are seen. No pneumothorax or significant pleural effusions are seen. Mediastinum: The cardiac contours are within normal limits. The aorta demonstrates calcification and tortuosity. Bones and chest wall: No suspicious bony lesions. Overlying soft tissues appear unremarkable. IMPRESSION: Low lung volumes, without an acute abnormality seen by plain film. Postoperative and degenerative changes are seen. Dictated by: Dipak Rodriguez M.D. on 10/10/2023 at 12:14 Approved by: Dipak Rodriguez M.D. on 10/10/2023 at 12:14
[2023-10-10 12:49] LABS: Add Manual Diff / Slide Review NO; Basophils Absolute Auto 0 /uL (0-100); Basophils Percent Auto 0.6 % (0-2); Eosinophils Absolute Auto 100 /uL (0-450); Eosinophils Percent Auto 1.6 % (2-4); Hematocrit 34.8 % (36-46); Hemoglobin 11.8 g/dL (12.0-16.0); Lymphocytes Absolute Auto 1500 /uL (1100-4500); Lymphocytes Percent Auto 26.5 % (25-40); Mean Corpuscular HGB Conc 33.9 % (30-36); Mean Corpuscular Hemoglobin 32.9 PG (26-34); Mean Corpuscular Volume 96.9 fL (80-100); Monocytes Absolute Auto 400 /uL (0-900); Monocytes Percent Auto 7.7 % (3-14); Neutrophils Absolute Auto 3500 /uL (1500-7000); Neutrophils Percent Auto 63.6 % (50-75); Platelet Count 167 X10^3/uL (150-400); Red Blood Cell Count 3.59 X10^6/uL (4.0-5.2); Red Cell Distribution Width 14.1 % (11.6-14.8); White Blood Cell Count 5.5 X10^3/uL (4.5-11.0)
[2023-10-10 13:08] LABS: Alanine Aminotransferase 20 IU/L (<35); Albumin 4.1 g/dL (3.5-5.0); Albumin Globulin Ratio 1.4 (1.0-2.8); Alkaline Phosphatase 68 U/L (38-126); Aspartate Aminotransferase 31 IU/L (14-36); BUN Creatinine Ratio 26.8 (6-22); Bilirubin Total 0.5 mg/dL (0.2-1.3); Blood Urea Nitrogen 19 mg/dL (7-17); Calcium 10.4 mg/dL (8.4-10.2); Carbon Dioxide 26 mmol/L (22-32); Chloride 105 mmol/L (98-107); Creatine Kinase 37 U/L (30-135); Estimated Glomerular Filt Rate > 60 mL/min (>60); Glucose 100 mg/dL (80-110); Lipase 209 U/L (23-300); Potassium 3.7 mmol/L (3.4-5.1); Sodium 139 mmol/L (137-145); Total Protein 7.1 g/dL (6.3-8.2)
[2023-10-10 13:39] LABS: HEMOLYSIS 17 (0-50); Troponin I < 0.012 ng/mL (0.01-0.034)
== END 2023-10-10 14:37 | disposition home or self-care (01) ==
PROVIDERS: Emergency Provider Emergency Medicine; Family Provider Family Medicine; PCP Family Medicine
DX: S32.019A Unspecified fracture of first lumbar vertebra, initial encounter for closed fracture (principal); I10 Essential (primary) hypertension; R07.9 Chest pain, unspecified
CPT/HCPCS: 71045; 72100; 80053; 81003; 82550; 83690; 84484; 85025; 93005; 93010; 99284

== ENCOUNTER → 2023-10-15 14:13 | Outpatient (CLI) | payer MEDICARE, SELFPAY ==
[2023-10-15 17:44] LABS: Vitamin D 25 Hydroxy (D3) 89.3 ng/mL (30.0-100.0)
[2023-10-15 17:59] LABS: Thyroid Stimulating Hormone 29.4 uIU/mL (0.47-4.68)
[2023-10-25 15:09] LABS: 1,25-Dihydroxy, Vitamin D-2 <10 pg/mL (.)
== END ==
PROVIDERS: Family Provider Family Medicine; PCP Family Medicine; Referring Provider Family Medicine; Visit Provider Family Medicine
DX: I10 Essential (primary) hypertension (principal); E83.52 Hypercalcemia; E03.9 Hypothyroidism, unspecified; F41.9 Anxiety disorder, unspecified; K63.5 Polyp of colon
CPT/HCPCS: 36415; 82306; 82397; 82652; 84439; 84443

== ENCOUNTER → 2023-12-10 10:36 | Outpatient (CLI) | payer MEDICARE, SELFPAY ==
[2023-12-10 12:32] LABS: Alanine Aminotransferase 18 IU/L (<35); Albumin 3.9 g/dL (3.5-5.0); Albumin Globulin Ratio 1.4 (1.0-2.8); Alkaline Phosphatase 68 U/L (38-126); Aspartate Aminotransferase 29 IU/L (14-36); BUN Creatinine Ratio 20.2 (6-22); Bilirubin Total 0.8 mg/dL (0.2-1.3); Blood Urea Nitrogen 20 mg/dL (7-17); Calcium 10.5 mg/dL (8.4-10.2); Carbon Dioxide 31 mmol/L (22-32); Chloride 98 mmol/L (98-107); Estimated Glomerular Filt Rate 55 mL/min (>60); Globulin 2.8 g/dL (1.7-4.1); Glucose 95 mg/dL (80-110); HEMOLYSIS < 15 (0-50); Potassium 3.8 mmol/L (3.4-5.1); Sodium 136 mmol/L (137-145); Total Protein 6.7 g/dL (6.3-8.2)
[2023-12-10 13:39] LABS: Free T4, Direct Thyroxine 1.38 ng/dL (0.78-2.19)
[2023-12-13 01:09] LABS: Calcium 10.3 mg/dL (8.7-10.3); Parathyroid Hormone, Intact 52 pg/mL (15-65)
== END ==
PROVIDERS: Family Provider Family Medicine; PCP Family Medicine; Referring Provider Family Medicine; Visit Provider Family Medicine
DX: I10 Essential (primary) hypertension (principal); E03.9 Hypothyroidism, unspecified; S22.089A Unspecified fracture of T11-T12 vertebra, initial encounter for closed fracture; S22.070A Wedge compression fracture of T9-T10 vertebra, initial encounter for closed fracture; E83.52 Hypercalcemia
CPT/HCPCS: 36415; 80053; 82310; 83970; 84439; 84443

== ENCOUNTER → 2023-12-30 14:10 | Outpatient (CLI) | payer MEDICARE, SELFPAY ==
--- NOTE | 2023-12-30 14:13 | DI.RAD.S_ITS ---
PROCEDURE: XR THORACIC SPINE 3V INDICATIONS: constant pain below left ribs TECHNIQUE: 3 views of the thoracic spine were acquired. COMPARISON: [facility], CR, XR CHEST 2V, 07/16/2023, 19:12. [facility], CR, XR LUMBAR SPINE 2-3V, 10/10/2023, 11:19. FINDINGS: Bones: No acute fractures or dislocations. Kyphoplasty changes are present at T11. Compression deformities are present at T9 and L3,, unchanged. Multilevel degenerative disc space narrowing is present. No suspicious bony lesions. 12 pairs of ribs are noted, and appear intact where visualized. Soft tissues: No paravertebral stripe thickening. IMPRESSION: Multilevel degenerative changes. Multilevel compression deformities without change. Dictated by: Yeny Flanagan M.D. on 12/30/2023 at 16:41 Approved by: Yeny Flanagan M.D. on 12/30/2023 at 16:43
[2023-12-30 15:19] LABS: Add Manual Diff / Slide Review NO; Basophils Absolute Auto 100 /uL (0-100); Basophils Percent Auto 0.9 % (0-2); Eosinophils Absolute Auto 100 /uL (0-450); Eosinophils Percent Auto 1.9 % (2-4); Hemoglobin 12.3 g/dL (12.0-16.0); Lymphocytes Absolute Auto 1900 /uL (1100-4500); Mean Corpuscular HGB Conc 34.2 % (30-36); Mean Corpuscular Hemoglobin 32.6 PG (26-34); Mean Corpuscular Volume 95.5 fL (80-100); Monocytes Absolute Auto 600 /uL (0-900); Monocytes Percent Auto 9.2 % (3-14); Neutrophils Absolute Auto 3400 /uL (1500-7000); Platelet Count 209 X10^3/uL (150-400); Red Blood Cell Count 3.77 X10^6/uL (4.0-5.2); Red Cell Distribution Width 13.5 % (11.6-14.8)
[2023-12-30 15:21] LABS: HEMOLYSIS < 15 (0-50); Iron 124 ug/dL (37-170); Lipase 344 U/L (23-300)
[2023-12-30 15:32] LABS: Percent Iron Saturation 39 % (15-50); Total Iron Binding Capacity 320 ug/dL (265-497); Transferrin 267 mg/dL (206-381)
[2023-12-30 15:56] LABS: Ferritin 37 ng/mL (11-264)
[2023-12-30 16:10] LABS: Vitamin B12 Reflex MMA if <400 222 pg/mL (239-931)
[2024-01-07 01:30] LABS: Methylmalonic Acid,Serum 630 nmol/L (0-378)
== END ==
LOC: LAB 14:12
PROVIDERS: Family Provider Family Medicine; PCP Family Medicine; Referring Provider Physician Assistant; Visit Provider Physician Assistant
DX: M54.6 Pain in thoracic spine (principal); D64.9 Anemia, unspecified; M54.9 Dorsalgia, unspecified
CPT/HCPCS: 36415; 72072; 82607; 82728; 83540; 83550; 83690; 83921; 85025

== ENCOUNTER → 2024-01-06 10:52 | Outpatient (CLI) | payer MEDICARE, SELFPAY ==
--- NOTE | 2024-01-06 10:54 | DI.CT.S_ITS ---
PROCEDURE: CT ABDOMEN PELVIS W CON INDICATIONS: Other constipation TECHNIQUE: After the administration of intravenous contrast, axial sections acquired from the lung bases to the pubic symphysis. Coronal and sagittal reformats were performed. For radiation dose reduction, the following was used: automated exposure control, adjustment of mA and/or kV according to patient size. COMPARISON: [facility], CT, CT ABDOMEN PELVIS W CON, 10/28/2022, 11:45. FINDINGS: Image quality: Diagnostic Lower chest: Scattered scarring and atelectasis. A large hiatal hernia is again partially seen . Heart size is within normal limits. Liver: No discrete solid mass Gallbladder and biliary system: Unremarkable, prominent biliary system likely senescent, as before Pancreas: Similar prominence of the pancreatic duct, without acute inflammatory changes or abrupt cut off Spleen: Nonenlarged Adrenals: No discrete nodules Kidneys: No solid mass or hydronephrosis. The distal ureters are not well seen due to metallic artifact Vessels and lymph nodes: The main portal vein appears patent. No pathologic lymphadenopathy by size criteria. Bowel and peritoneum: No evidence of small bowel obstruction. Fecal loading is overall moderate. The colon is tortuous. No evidence of active inflammation identified on CT. No pathologic ascites. Body wall: Unremarkable Pelvis: Not well seen due to metallic artifact. Bones: Bilateral hip arthroplasties. There are degenerative changes. Multiple vertebral body height loss, for example L3 and T9, age indeterminate, probably nonacute. Vertebral augmentation at T11. IMPRESSION: Moderate fecal loading. No small bowel obstruction. The pelvis is obscured by metallic artifact. Large hiatal hernia again seen. Other incidental and stable findings above. Dictated by: Kartik Sarabia M.D. on 01/06/2024 at 12:44 Approved by: Kartik Sarabia M.D. on 01/06/2024 at 12:49
== END ==
PROVIDERS: Family Provider Family Medicine; PCP Family Medicine; Referring Provider Physician Assistant; Visit Provider Physician Assistant
DX: K59.09 Other constipation (principal); K44.9 Diaphragmatic hernia without obstruction or gangrene; M54.9 Dorsalgia, unspecified; Z96.643 Presence of artificial hip joint, bilateral
CPT/HCPCS: 74177; Q9967

== ENCOUNTER → 2024-01-21 10:02 | Outpatient (CLI) | payer MEDICARE, SELFPAY ==
[2024-01-21 10:37] LABS: Add Manual Diff / Slide Review NO; Basophils Absolute Auto 0 /uL (0-100); Basophils Percent Auto 0.8 % (0-2); Eosinophils Absolute Auto 300 /uL (0-450); Eosinophils Percent Auto 4.3 % (2-4); Hematocrit 37.7 % (36-46); Hemoglobin 12.7 g/dL (12.0-16.0); Lymphocytes Absolute Auto 1800 /uL (1100-4500); Lymphocytes Percent Auto 29.8 % (25-40); Mean Corpuscular HGB Conc 33.7 % (30-36); Mean Corpuscular Hemoglobin 32.2 PG (26-34); Mean Corpuscular Volume 95.6 fL (80-100); Monocytes Absolute Auto 500 /uL (0-900); Monocytes Percent Auto 8.4 % (3-14); Neutrophils Absolute Auto 3400 /uL (1500-7000); Neutrophils Percent Auto 56.7 % (50-75); Platelet Count 192 X10^3/uL (150-400); Red Blood Cell Count 3.95 X10^6/uL (4.0-5.2); Red Cell Distribution Width 13.8 % (11.6-14.8)
[2024-01-21 11:19] LABS: BUN Creatinine Ratio 29.2 (6-22); Blood Urea Nitrogen 31 mg/dL (7-17); Calcium 11.1 mg/dL (8.4-10.2); Carbon Dioxide 32 mmol/L (22-32); Chloride 105 mmol/L (98-107); Estimated Glomerular Filt Rate 50 mL/min (>60); Glucose 95 mg/dL (80-110); HEMOLYSIS < 15 (0-50); Potassium 3.8 mmol/L (3.4-5.1); Sodium 142 mmol/L (137-145)
[2024-01-21 11:36] LABS: Vitamin D 25 Hydroxy (D3) 88.8 ng/mL (30.0-100.0)
[2024-01-21 11:49] LABS: TSH w/ Reflex to FT4 7.24 uIU/mL (0.47-4.68)
[2024-01-22 00:34] LABS: Free T4, Direct Thyroxine 1.61 ng/dL (0.78-2.19)
[2024-01-25 19:07] LABS: Calcium 10.6 mg/dL (8.7-10.3); Parathyroid Hormone, Intact 59 pg/mL (15-65)
== END ==
PROVIDERS: Family Provider Family Medicine; PCP Family Medicine; Referring Provider Physician Assistant; Visit Provider Family Medicine
DX: D64.9 Anemia, unspecified (principal); E83.52 Hypercalcemia; E03.9 Hypothyroidism, unspecified; I10 Essential (primary) hypertension
CPT/HCPCS: 36415; 80048; 82306; 82310; 83970; 84439; 84443; 85025

== ENCOUNTER 2024-01-26 11:40 | Day surgery (SDC) | payer MEDICARE, SELFPAY ==
[2024-01-26 12:15] VITALS: BP 195/90; PULSE 64; RESP 16; TEMP 36.9; O2SAT 97
[2024-01-26] MEDS: LACTATED RINGERS 1,000 ML 100 ML IV (12:20)
--- NOTE | 2024-01-26 12:24 | P.HP_ITS ---
History of Present Illness History of Present Illness Date Patient Seen: 01/26/24 Time Patient Seen: 12:24 Chief complaint: Colonoscopy Narrative: Bettie is a 88-year-old woman who presents for colonoscopy for history of a cecal polyp. See the prior office note for details. [facility] Medical History (Updated 12/31/23 @ 09:33 by Sisi Marie PA-C) Lumbar facet arthropathy Closed T11 fracture Compression fracture of T9 vertebra Pain of both breasts Family history of pancreatitis Thoracic radiculitis Shoulder pain, left Large hiatal hernia Chronic back pain Bilateral hip pain Chronic thoracic spine pain Hypercalcemia Loss of vision Dizziness Rib pain on right side Body posture problem Chest wall pain, chronic Pain of left breast Acute bilateral thoracic back pain Thoracic spine fracture Pulmonary nodule, right Low back pain with bilateral sciatica Generalized pruritus Insomnia Segmental and somatic dysfunction of rib cage Rib pain on left side Leg cramps Cervical somatic dysfunction Cranial somatic dysfunction Stiff neck Vitiligo (~1975) Anxiety Transient ischemic attack (~1997) Kyphosis Scoliosis Osteoporosis Fractures Chronic back pain Polio (~1945) Mumps Measles Chicken pox Macular degeneration (~2000) Hearing loss History of urinary incontinence (~2015) Colon polyps (~1994) Aortic regurgitation Upper extremity somatic dysfunction Segmental and somatic dysfunction of sacral region Pelvic somatic dysfunction Segmental and somatic dysfunction of abdomen and other regions Segmental and somatic dysfunction of thoracic region Segmental and somatic dysfunction of lumbar region Left elbow pain Hypothyroidism (~1982) Rib pain on left side Bilateral leg cramps UTI (urinary tract infection) Surgical History Status post vertebroplasty Anesthesia History of bladder suspension procedure (~1998) History of kyphoplasty (~2002) History of elbow surgery (~08/2015) History of surgery on right wrist (~10/14/19) History of hip replacement (~2004) History of cataract removal with insertion of prosthetic lens (~2014) Family History Father Suicide Mental health problem Mother Pancreatitis Brother No problems noted. Brother No problems noted. Sister Mental health problem Grandmother Senility Social History household members: none Smoking Status: Never smoker alcohol intake: former Meds Home Medications and Allergies Home Medications Medication Instructions Recorded Confirmed Type aspirin 81 mg tablet,delayed 81 mg PO DAILY 12/15/19 01/26/24 History release (Adult Aspirin Regimen) Prevegen 2 tab PO DAILY 01/13/20 01/19/24 History coenzyme Q10 200 mg capsule (Co 200 mg PO BID 01/13/20 01/19/24 History Q-10) vitamins A,C,E-uauy-jhshyb 2,148 2 tab PO BID 01/13/20 01/19/24 History mcg-113 mg-45 mg-17.4 mg tablet (PreserVision AREDS) lactobacillus combination no.9 4 4,000 mmu cells PO BID #10 caps 07/20/23 01/19/24 Rx billion cell capsule (Adult 50 Plus Probiotic) chlorthalidone 25 mg tablet 25 mg PO DAILY #60 tabs 10/29/23 01/26/24 Rx tramadol 50 mg tablet 50 mg PO TID PRN pain #60 tabs 12/18/23 01/19/24 Rx atenolol 50 mg tablet 50 mg PO BID #180 tabs 01/12/24 01/26/24 Rx clobetasol 0.05 % topical cream 1 applic topical BID 2 weeks #45 01/19/24 01/19/24 Rx grams estradiol 0.01% (0.1 mg/gram) 1 g vaginal QWEEK #42.5 grams 01/19/24 01/19/24 Rx vaginal cream nifedipine 30 mg tablet,extended 30 mg PO DAILY #90 tabs 01/19/24 01/26/24 Rx release valsartan 320 mg tablet 320 mg PO DAILY #90 tabs 01/19/24 01/26/24 Rx levothyroxine 100 mcg tablet 100 mcg PO DAILY #90 tabs 01/25/24 01/26/24 Rx meloxicam 15 mg tablet 15 mg PO DAILY #30 tabs 01/25/24 Rx Allergies Allergy/AdvReac Type Severity Reaction Status Date / Time Penicillins Allergy Severe Rash Verified 01/19/24 13:43 shellfish derived Allergy Intermediate Rash Verified 01/19/24 13:43 latex [LATEX] Allergy Mild WELTS Verified 01/19/24 13:43 morphine [MORPHINE] Allergy Mild WELTS Verified 01/19/24 13:43 Sulfa (Sulfonamide Allergy Mild UNK Verified 01/19/24 13:43 Antibiotics) [SULFA (SULFONAMIDE ANTIBIOTICS)] alendronate sodium Allergy Unknown Verified 01/19/24 13:43 [From FOSAMAX] acetaminophen [From Percocet] AdvReac Intermediate altered Verified 01/19/24 13:43 mental status oxycodone [From Percocet] AdvReac Intermediate altered Verified 01/19/24 13:43 mental status FISH Allergy Mild Rash Uncoded 01/19/24 13:43 Exam Vital Signs (past 8 hours): - 01/26/24 12:15 Temperature 98.4 F Pulse Rate 64 Respiratory Rate 16 Blood Pressure 195/90 H Pulse Oximetry 97 Oxygen Delivery Method Room Air Oxygen Delivery Method Room Air Const General: No acute distress Resp Effort & Inspection: normal respiratory effort Assessment & Plan Assessment and plan (1) Cecal polyp: Status: Acute Plan We reviewed the risks and benefits of colonoscopy and she would like to proceed
[2024-01-26 13:07] VITALS: BP 113/64; PULSE 69; RESP 16; TEMP 36.4; O2SAT 95
--- NOTE | 2024-01-26 13:08 | PM.OP.COLON ---
Operative Date/Time/Diagnoses Date of procedure: 01/26/24 Time of procedure: 13:08 Pre-op diagnosis: History of colon polyp Post-op diagnosis: same Procedure & Clinicians Study performed: Colonoscopy Same procedure as scheduled: Yes Surgeon: Patric Mandujano Procedure Notes Procedure in detail: Surgeon: Patric Mandujano MD Anesthesia: Abril Cardoso CRNA Procedure: The patient was brought to the endoscopy suite, placed in left lateral decubitus position. The patient was connected to monitoring devices. A time-out was performed. Sedation was administered. Once the patient was adequately sedated, a digital rectal exam was performed and was normal. The scope was then inserted and advanced to the cecum where the appendiceal orifice was identified and photographed. The scope was then slowly withdrawn over greater than 6 minutes. The mucosa was thoroughly inspected. No abnormalities were seen. The scope was retroflexed in the rectum. No abnormalities were seen. The scope was straightened and removed. The patient was awakened and brought to recovery. Scope withdrawal time: 10 minutes Sedation time: 30 minutes EBL: 0 Findings: Normal colon Post-procedure Disposition: PACU
[2024-01-26 13:13] VITALS: BP 115/58; PULSE 69; RESP 14; O2SAT 95
[2024-01-26 13:18] VITALS: BP 154/68; PULSE 72; RESP 23; TEMP 36.9; O2SAT 97
== END 2024-01-26 13:36 | disposition home or self-care (01) ==
PROVIDERS: Family Provider Family Medicine; PCP Family Medicine; Referring Provider Surgery; Visit Provider Surgery
PROC: 0DJD8ZZ Inspection of Lower Intestinal Tract, Via Natural or Artificial Opening Endoscopic (ICD-10-PCS; CPT 45378; principal; 2024-01-26 12:30)
DX: Z12.11 Encounter for screening for malignant neoplasm of colon (principal); Z86.010 Personal history of colon polyps
CPT/HCPCS: G0105; J2704

== ENCOUNTER 2024-01-30 14:15 | Emergency (ER) | payer MEDICARE, SELFPAY ==
[2024-01-30 14:29] VITALS: BP 172/75; PULSE 60; RESP 16; TEMP 36.1; O2SAT 99; BMI 23.8
[2024-01-30 15:03] VITALS: O2SAT 97
[2024-01-30 15:04] VITALS: BP 185/73; PULSE 57; RESP 17; O2SAT 98
--- NOTE | 2024-01-30 15:24 | ED_ITS ---
HPI - Back Pain/Injury <Wilver Villagran PA-C - Last Filed: 01/30/24 15:50> General Chief Complaint: Back Pain/Injury Stated Complaint: Lowback px Time Seen by Provider: 01/30/24 15:00 Source: patient History of Present Illness HPI Narrative: This is a 88-year-old female presents emergency department due to acute on chronic lower back pain with right-sided radiculopathy. Patient states that she was recently seen by her primary care provider where they did a CT of the lumbar spine which showed spinal stenosis in the lumbar area. She states for the last couple of days she has had lumbar pain with radiation down her right lower extremity. Reports chronic lower extremity any peripheral neuropathy. Denies any urinary or bowel incontinence. Denies any saddle paresthesias. Patient was extensive history of chronic lower back pain. Describes the right lower extremity pain as a ?burning?. Related Data Home Medications Medication Instructions Recorded Confirmed aspirin 81 mg tablet,delayed 81 mg PO DAILY 12/15/19 01/26/24 release (Adult Aspirin Regimen) Prevegen 2 tab PO DAILY 01/13/20 01/19/24 coenzyme Q10 200 mg capsule (Co 200 mg PO BID 01/13/20 01/19/24 Q-10) vitamins A,C,K-qwfj-hscpsn 2,148 2 tab PO BID 01/13/20 01/19/24 mcg-113 mg-45 mg-17.4 mg tablet (PreserVision AREDS) Previous Rx's Medication Instructions Recorded lactobacillus combination no.9 4 4,000 mmu cells PO BID #10 caps 07/20/23 billion cell capsule (Adult 50 Plus Probiotic) chlorthalidone 25 mg tablet 25 mg PO DAILY #60 tabs 10/29/23 tramadol 50 mg tablet 50 mg PO TID PRN pain #60 tabs 12/18/23 atenolol 50 mg tablet 50 mg PO BID #180 tabs 01/12/24 clobetasol 0.05 % topical cream 1 applic topical BID 2 weeks #45 01/19/24 grams estradiol 0.01% (0.1 mg/gram) 1 g vaginal QWEEK #42.5 grams 01/19/24 vaginal cream nifedipine 30 mg tablet,extended 30 mg PO DAILY #90 tabs 01/19/24 release valsartan 320 mg tablet 320 mg PO DAILY #90 tabs 01/19/24 levothyroxine 100 mcg tablet 100 mcg PO DAILY #90 tabs 01/25/24 meloxicam 15 mg tablet 15 mg PO DAILY #30 tabs 01/25/24 cyclobenzaprine 5 mg tablet 5 mg PO TID PRN muscle spasm #20 01/30/24 tabs methylprednisolone 4 mg tablets in See Rx Instructions PO .COMPLEX 01/30/24 a dose pack (Medrol (Eder)) #21 ea Allergies Allergy/AdvReac Type Severity Reaction Status Date / Time Penicillins Allergy Severe Rash Verified 01/30/24 14:29 shellfish derived Allergy Intermediate Rash Verified 01/30/24 14:29 Fish Containing Products Allergy Mild Rash Verified 01/30/24 15:46 latex [LATEX] Allergy Mild WELTS Verified 01/30/24 14:29 morphine [MORPHINE] Allergy Mild WELTS Verified 01/30/24 14:29 Sulfa (Sulfonamide Allergy Mild UNK Verified 01/30/24 14:29 Antibiotics) [SULFA (SULFONAMIDE ANTIBIOTICS)] alendronate sodium Allergy Unknown Verified 01/30/24 14:29 [From FOSAMAX] acetaminophen [From Percocet] AdvReac Intermediate altered Verified 01/30/24 14:29 mental status oxycodone [From Percocet] AdvReac Intermediate altered Verified 01/30/24 14:29 mental status Review of Systems <Wilver Villagran PA-C - Last Filed: 01/30/24 15:50> Review of Systems Narrative: GENERAL: Denies chills, fatigue, malaise, fever, sweats. HEENT: Denies sinus pain, ear pain, sore throat, difficulty swallowing, dizziness. RESPIRATORY: Denies dyspnea, cough, wheezing, hemoptysis, sputum. CARDIOVASCULAR: Denies chest pain, palpitations, orthopnea, edema, GASTROINTESTINAL: Denies nausea, vomiting, abdominal pain, diarrhea, constipation, melena. : Denies dysuria, frequency, incontinence, hematuria, urinary retention. MUSCULOSKELETAL: Lower back pain with right lower extremity pain. SKIN: Denies rash, skin lesions, or other NEUROLOGIC: Denies weakness, headache, numbness, change in speech, confusion, seizures, incoordination. PSYCHIATRIC: No concerning psychosocial issues. 12 point review of systems is negative except for those stated above Patient History <Wilver Villagran PA-C - Last Filed: 01/30/24 15:50> Medical History (Updated 01/30/24 @ 15:49 by Wilver Villagran PA-C) Lumbar facet arthropathy Closed T11 fracture Compression fracture of T9 vertebra Pain of both breasts Family history of pancreatitis Thoracic radiculitis Shoulder pain, left Large hiatal hernia Chronic back pain Bilateral hip pain Chronic thoracic spine pain Hypercalcemia Loss of vision Dizziness Rib pain on right side Body posture problem Chest wall pain, chronic Pain of left breast Acute bilateral thoracic back pain Thoracic spine fracture Pulmonary nodule, right Low back pain with bilateral sciatica Generalized pruritus Insomnia Segmental and somatic dysfunction of rib cage Rib pain on left side Leg cramps Cervical somatic dysfunction Cranial somatic dysfunction Stiff neck Vitiligo (~1975) Anxiety Transient ischemic attack (~1997) Kyphosis Scoliosis Osteoporosis Fractures Chronic back pain Polio (~1945) Mumps Measles Chicken pox Macular degeneration (~2000) Hearing loss History of urinary incontinence (~2015) Colon polyps (~1994) Aortic regurgitation Upper extremity somatic dysfunction Segmental and somatic dysfunction of sacral region Pelvic somatic dysfunction Segmental and somatic dysfunction of abdomen and other regions Segmental and somatic dysfunction of thoracic region Segmental and somatic dysfunction of lumbar region Left elbow pain Hypothyroidism (~1982) Rib pain on left side Bilateral leg cramps UTI (urinary tract infection) Surgical History Status post vertebroplasty Anesthesia History of bladder suspension procedure (~1998) History of kyphoplasty (~2002) History of elbow surgery (~08/2015) History of surgery on right wrist (~10/14/19) History of hip replacement (~2004) History of cataract removal with insertion of prosthetic lens (~2014) Family History Father Suicide Mental health problem Mother Pancreatitis Brother No problems noted. Brother No problems noted. Sister Mental health problem Grandmother Senility Social History household members: none Smoking Status: Never smoker alcohol intake: former Smoking Status: Never smoker alcohol intake frequency: 0-2 drinks per day Alcohol type: wine Substance Use Type: does not use Exam <Wilver Villagran PA-C - Last Filed: 01/30/24 15:50> Narrative Exam Narrative: GENERAL: Well-developed patient, in mild distress. HEAD: Atraumatic. Normocephalic. EYES: Pupils equal round and reactive. Extraocular motions intact. No scleral icterus. No injection or drainage. ENT: Nose without bleeding, purulent drainage. Throat without erythema, tonsillar hypertrophy or exudate. Airway patent. NECK: Trachea midline. Non tender EXTREMITIES: Tenderness to palpation to right buttock NEURO: AOx3. SKIN: No rash or erythema of visible areas Initial Vital Signs Initial Vital Signs: Vital Signs Temperature 97.0 F L 01/30/24 14:29 Pulse Rate 60 01/30/24 14:29 Respiratory Rate 16 01/30/24 14:29 Blood Pressure 172/75 H 01/30/24 14:29 Pulse Oximetry 99 01/30/24 14:29 Oxygen Delivery Method Room Air 01/30/24 14:29 <Madeline Morel DO - Last Filed: 01/30/24 17:50> Initial Vital Signs Initial Vital Signs: Vital Signs Temperature 97.0 F L 01/30/24 14:29 Pulse Rate 60 01/30/24 14:29 Respiratory Rate 16 01/30/24 14:29 Blood Pressure 172/75 H 01/30/24 14:29 Pulse Oximetry 99 01/30/24 14:29 Oxygen Delivery Method Room Air 01/30/24 14:29 Course <Wilver Villagran PA-C - Last Filed: 01/30/24 15:50> Orders Ordered: Discontinued Medications Ketorolac Tromethamine (Ketorolac 30 Mg/Ml Vial) 15 mg IM NOW ONE Stop: 01/30/24 15:44 Last Admin: 01/30/24 15:56 Dose: 15 mg Documented By: ALEX[place]RIA Vital Signs Vital signs: Vital Signs - 8 hr 01/30/24 14:29 01/30/24 15:03 01/30/24 15:04 Temperature 97.0 F L Pulse Rate 60 57 L Respiratory Rate 16 17 Blood Pressure 172/75 H Pulse Oximetry 99 97 98 Oxygen Delivery Method Room Air Room Air 01/30/24 15:04 01/30/24 15:30 01/30/24 15:31 Temperature Pulse Rate 55 L 56 L Respiratory Rate Blood Pressure 185/73 H Pulse Oximetry 97 98 Oxygen Delivery Method 01/30/24 15:31 Temperature Pulse Rate Respiratory Rate Blood Pressure 167/78 H Pulse Oximetry 98 Oxygen Delivery Method Room Air <Madeline Morel DO - Last Filed: 01/30/24 17:50> Orders Ordered: Discontinued Medications Ketorolac Tromethamine (Ketorolac 30 Mg/Ml Vial) 15 mg IM NOW ONE Stop: 01/30/24 15:44 Last Admin: 01/30/24 15:56 Dose: 15 mg Documented By: ALEXANDRIA Vital Signs Vital signs: Vital Signs - 8 hr 01/30/24 14:29 01/30/24 15:03 01/30/24 15:04 Temperature 97.0 F L Pulse Rate 60 57 L Respiratory Rate 16 17 Blood Pressure 172/75 H Pulse Oximetry 99 97 98 Oxygen Delivery Method Room Air Room Air 01/30/24 15:04 01/30/24 15:30 01/30/24 15:31 Temperature Pulse Rate 55 L 56 L Respiratory Rate Blood Pressure 185/73 H Pulse Oximetry 97 98 Oxygen Delivery Method 01/30/24 15:31 Temperature Pulse Rate Respiratory Rate Blood Pressure 167/78 H Pulse Oximetry 98 Oxygen Delivery Method Room Air MDM - Back Pain/Injury <Wilver Villagran PA-C - Last Filed: 01/30/24 15:50> MDM Narrative Medical decision making narrative: ED course: This is a 88-year-old female presents emergency department due to suspected sciatica based on description symptoms. Extensive in his history of chronic back pain. Patient has recently received a CT with her primary care provider which shows mild stenosis as maybe contributing to the patient's pain. Patient will be came in IM Toradol as well as a prescription for muscle relaxants and a Medrol Dosepak. Recommended ibuprofen and Tylenol as well [id number]. Patient does not present with any red flag symptoms such as urinary or bowel incontinence, saddle paresthesia. No new injuries or concern for any kind of new fractures. CC: Lumbar pain with right-sided radiculopathy Complicating co-morbidities: Chronic history of lower back pain as well as T11 vertebroplasty Data collected from: Previous notes Medical records reviewed: Patient was seen here 4 months ago due to acute on chronic lower back pain. History of hypertension. History of chronic back pain with injections. Normally wears a back brace. History of T11 fracture, T9 fracture, chronic back pain, chronic hip pain, leg cramps, osteoporosis, scoliosis. History of hip replacement and vertebroplasty of T11. Possible new L1 compression fracture. Differential considered, but not limited to: Spinal cord injury, fracture, lumbosacral strain, sciatica Exam documented above, pertinent findings include: No concerning abnormalities Lab Test results independently reviewed as above. Pertinent findings: None obtained Imaging studies independently reviewed: None obtained Scores Used: None MIPS Elements: None Consultations: None Treatments: IM Toradol Re-evaluations: None Discussion: Discussed plan with the patient was comfortable with the plan Diagnosis: Sciatica Disposition: see below, along with detailed discharge instructions that have been reviewed with patient as well as indications for ED re-evaluation and additional outpatient follow up Discharge Plan Departure Patient Disposition: Home Clinical Impression: Sciatica Instructions: DI for Back Pain With Sciatica Activity Restrictions/Additional Instructions: Thank you for coming to the [facility] Emergency Department today. The Toradol we gave you today should help with the pain. May also use these muscle relaxants as well as steroid pack to decrease the inflammation and help with your symptoms. Please do not take the muscle relaxants before driving. You may also use ibuprofen Tylenol. I also recommend you speak with the primary care provider about a possible referral to physical therapy for exercises to help with the sciatica. Please return to the emergency department if you develop any numbness between her legs, incontinence, or any other concerning signs or symptoms. I hope you feel better soon. Please follow up with your primary care provider within a week if your symptoms continue. If you do not have a primary care provider please contact the [facility] Resource line at [phone]. They will ask some questions about your medical history and help you get set up with a provider in the community. Prescriptions: New cyclobenzaprine 5 mg tablet 5 mg PO TID PRN (Reason: muscle spasm) Qty: 20 0RF methylprednisolone [Medrol (Eder)] 4 mg tablets,dose pack See Rx Instructions .ROUTE .COMPLEX Qty: 21 0RF Rx Instructions: orally per package directions No Action coenzyme Q10 [Co Q-10] 200 mg capsule 200 mg PO BID Adult 50 Plus Probiotic 4 billion cell capsule 4,000 mmu cells PO BID Qty: 10 0RF Rx Instructions: administer with a meal, take off schedule from antibiotics. Please deliver timo tramadol 50 mg tablet 50 mg PO TID PRN (Reason: pain) Qty: 60 0RF atenolol 50 mg tablet 50 mg PO BID Qty: 180 1RF levothyroxine 100 mcg tablet 100 mcg PO DAILY Qty: 90 0RF meloxicam 15 mg tablet 15 mg PO DAILY Qty: 30 0RF aspirin [Adult Aspirin Regimen] 81 mg tablet,delayed release (DR/EC) 81 mg PO DAILY PreserVision AREDS [id number] tablet 2 tab PO BID Prevegen 2 tab PO DAILY chlorthalidone 25 mg tablet 25 mg PO DAILY Qty: 60 2RF clobetasol 0.05 % cream 1 applic topical BID 14 Days Qty: 45 0RF nifedipine 30 mg tablet extended release 30 mg PO DAILY Qty: 90 2RF valsartan 320 mg tablet 320 mg PO DAILY Qty: 90 2RF estradiol 0.01 % (0.1 mg/gram) cream 1 g vaginal QWEEK Qty: 42.5 3RF Referrals: Josias Christine MD [Primary Care Provider] - Stand Alone Forms: Patient Portal/API ED Sign-out <Madeline Morel DO - Last Filed: 01/30/24 17:50> Cosign ED Attending Cosignature Attestation: I was available for consultation.
[2024-01-30 15:30] VITALS: PULSE 55; O2SAT 97
[2024-01-30 15:31] VITALS: BP 167/78; PULSE 56; O2SAT 98
[2024-01-30] MEDS: KETOROLAC 30 MG/ML VIAL 15 MG IM (15:56)
== END 2024-01-30 16:46 | disposition home or self-care (01) ==
PROVIDERS: Emergency Provider Physician Assistant Medical; Family Provider Family Medicine; PCP Family Medicine
DX: M54.41 Lumbago with sciatica, right side (principal); Z79.899 Other long term (current) drug therapy
CPT/HCPCS: 96372; 99283; J1885

== ENCOUNTER → 2024-03-09 10:05 | Outpatient (CLI) | payer MEDICARE, SELFPAY ==
[2024-03-09 11:19] LABS: Alanine Aminotransferase 16 IU/L (<35); Albumin 4.1 g/dL (3.5-5.0); Albumin Globulin Ratio 1.6 (1.0-2.8); Alkaline Phosphatase 57 U/L (38-126); Aspartate Aminotransferase 26 IU/L (14-36); Bilirubin Total 0.7 mg/dL (0.2-1.3); Blood Urea Nitrogen 26 mg/dL (7-17); Carbon Dioxide 33 mmol/L (22-32); Chloride 102 mmol/L (98-107); Estimated Glomerular Filt Rate 54 mL/min (>60); Globulin 2.6 g/dL (1.7-4.1); Glucose 111 mg/dL (80-110); HEMOLYSIS < 15 (0-50); Potassium 3.5 mmol/L (3.4-5.1); Sodium 140 mmol/L (137-145); Total Protein 6.7 g/dL (6.3-8.2)
[2024-03-09 11:49] LABS: TSH w/ Reflex to FT4 3.68 uIU/mL (0.47-4.68)
[2024-03-09 12:03] LABS: Vitamin B12 > 1000 pg/mL (239-931)
== END ==
PROVIDERS: Physician Assistant; Family Provider Family Medicine; PCP Family Medicine; Referring Provider Family Medicine; Visit Provider Family Medicine
DX: E03.9 Hypothyroidism, unspecified (principal); E53.8 Deficiency of other specified B group vitamins; R94.4 Abnormal results of kidney function studies; M54.30 Sciatica, unspecified side; M54.9 Dorsalgia, unspecified; E83.52 Hypercalcemia; G89.29 Other chronic pain; D64.9 Anemia, unspecified; I10 Essential (primary) hypertension
CPT/HCPCS: 36415; 80053; 82607; 83883; 84155; 84156; 84165; 84166; 84443

== ENCOUNTER → 2024-04-13 10:57 | Outpatient (CLI) | payer MEDICARE, SELFPAY ==
--- NOTE | 2024-04-13 10:58 | DI.MG.S_ITS ---
BILATERAL DIGITAL SCREENING MAMMOGRAM 3D/2D WITH CAD: 04/13/2024 CLINICAL: Routine screening. Family history of breast cancer. Comparison is made to exams dated: 12/03/2022 mammogram, 03/10/2022 mammogram, and 02/15/2021 mammogram - [facility]. There are scattered areas of fibroglandular density in both breasts (category b / 25%-50% glandular tissue). Current study was also evaluated with a Computer Aided Detection (CAD) system. No significant masses, calcifications, or other findings are seen in either breast. There has been no significant interval change. IMPRESSION: NEGATIVE There is no mammographic evidence of malignancy. A 1 year screening mammogram is recommended. This exam was interpreted at Station ID: [id number]. NOTE: For mammograms, a report in lay terms will be sent to the patient. Approximately 15% of breast malignancies will not be visualized mammographically. In the management of a palpable breast mass, a negative mammogram must not discourage biopsy of a clinically suspicious lesion. Electronically Signed By: Carly sanchez/idalmis:04/13/2024 12:42:38 letter sent: Normal Exam ACR BI-RADS Category 1: Negative [id number]
== END ==
PROVIDERS: Family Provider Family Medicine; PCP Family Medicine; Referring Provider Family Medicine; Visit Provider Family Medicine
DX: Z12.31 Encounter for screening mammogram for malignant neoplasm of breast (principal); Z80.3 Family history of malignant neoplasm of breast; R92.323 Mammographic fibroglandular density, bilateral breasts
CPT/HCPCS: 77063; 77067

== ENCOUNTER → 2024-04-27 10:52 | Outpatient (CLI) | payer MEDICARE, SELFPAY ==
[2024-04-27 12:53] LABS: Add Manual Diff / Slide Review NO; Basophils Absolute Auto 0 /uL (0-100); Basophils Percent Auto 0.7 % (0-2); Eosinophils Absolute Auto 200 /uL (0-450); Eosinophils Percent Auto 4.3 % (2-4); Hematocrit 37.4 % (36-46); Hemoglobin 12.8 g/dL (12.0-16.0); Lymphocytes Absolute Auto 2000 /uL (1100-4500); Lymphocytes Percent Auto 34.7 % (25-40); Mean Corpuscular HGB Conc 34.2 % (30-36); Mean Corpuscular Hemoglobin 32.4 PG (26-34); Mean Corpuscular Volume 94.9 fL (80-100); Monocytes Absolute Auto 400 /uL (0-900); Neutrophils Absolute Auto 2900 /uL (1500-7000); Neutrophils Percent Auto 52.3 % (50-75); Platelet Count 205 X10^3/uL (150-400); Red Blood Cell Count 3.94 X10^6/uL (4.0-5.2); Red Cell Distribution Width 13.1 % (11.6-14.8); White Blood Cell Count 5.6 X10^3/uL (4.5-11.0)
[2024-04-27 13:41] LABS: Iron 140 ug/dL (37-170)
[2024-04-27 13:52] LABS: Percent Iron Saturation 45 % (15-50); Total Iron Binding Capacity 312 ug/dL (265-497); Transferrin 252 mg/dL (206-381)
[2024-04-27 14:15] LABS: TSH w/ Reflex to FT4 0.14 uIU/mL (0.47-4.68)
[2024-04-27 14:43] LABS: Free T4, Direct Thyroxine 2.18 ng/dL (0.78-2.19); HEMOLYSIS 17 (0-50)
== END ==
PROVIDERS: Family Provider Family Medicine; PCP Family Medicine; Referring Provider Physician Assistant; Visit Provider Physician Assistant
DX: R63.4 Abnormal weight loss (principal); R11.0 Nausea; K44.9 Diaphragmatic hernia without obstruction or gangrene; K29.70 Gastritis, unspecified, without bleeding; E03.9 Hypothyroidism, unspecified
CPT/HCPCS: 36415; 83540; 83550; 84439; 84443; 85025

== ENCOUNTER → 2024-07-27 14:53 | Outpatient (CLI) | payer MEDICARE, SELFPAY | PROVIDERS: Family Provider Family Medicine; PCP Family Medicine; Visit Provider Nurse Practitioner Family | DX: R30.0 Dysuria (principal) | CPT/HCPCS: 87086 ==

== ENCOUNTER → 2024-08-11 09:58 | Outpatient (CLI) | payer MEDICARE, SELFPAY ==
[2024-08-11 13:34] LABS: TSH w/ Reflex to FT4 1.66 uIU/mL (0.47-4.68)
== END ==
PROVIDERS: Family Provider Family Medicine; PCP Family Medicine; Referring Provider Family Medicine; Visit Provider Family Medicine
DX: E03.9 Hypothyroidism, unspecified (principal); K29.70 Gastritis, unspecified, without bleeding; K44.9 Diaphragmatic hernia without obstruction or gangrene; E83.52 Hypercalcemia
CPT/HCPCS: 36415; 82310; 83970; 84443

== ENCOUNTER → 2024-09-20 09:08 | Outpatient (CLI) | payer MEDICARE, SELFPAY ==
--- NOTE | 2024-09-20 09:09 | DI.US.S_ITS ---
PROCEDURE: US CAROTID DOPPLER BI INDICATIONS: STENOSIS OF RT CAROTID ARTERY TECHNIQUE: Color and pulse Doppler interrogation was performed of both carotid systems, with image documentation and velocity measurements. COMPARISON: CT, CT ANGIO HEAD AND NECK, 01/21/2019, 20:39. FINDINGS: Stenosis calculations are based on SRU (Society of Radiologists in Ultrasound) criteria. The flow velocities and the arterial waveforms are normal within both carotid arterial systems. Atherosclerotic plaque is seen on both sides. The estimated degree of internal carotid artery stenosis is less than 50%. Antegrade flow is confirmed within both vertebral arteries. IMPRESSION: No hemodynamically significant stenosis is seen. Atherosclerotic plaque is noted bilaterally. Dictated by: Dipak Rodriguez M.D. on 09/20/2024 at 17:14 Approved by: Dipak Rodriguez M.D. on 09/20/2024 at 17:16
--- NOTE | 2024-09-20 09:09 | DI.NM.S_ITS ---
PROCEDURE: NM ALFREDO PERF SPECT R&S PHARM Rest and pharmacological stress myocardial perfusion SPECT with gated imaging and ejection fraction RADIOPHARMACEUTICAL: 25.6 mCi Tc-99m tetrafosmin IV at rest and 26.9 mCi Tc-99m tetrafosmin IV at peak effect of pharmacological stress. [id number] was performed. INDICATIONS: STENOSIS OF RT CAROTID ARTERY TECHNIQUE: Radiopharmaceutical was injected at peak stress test, and also at rest. SPECT images were obtained. SPECT myocardial perfusion images were displayed in short axis, horizontal long axis, and vertical long axis views. Gated images were reviewed using AntCor software. COMPARISON: None. CARDIAC STRESS: A pharmacologic stress test was performed under the supervision of an attending staff, using an infusion of regadenoson 0.4 mg IV. Hemodynamic data: There is normal blood pressure and heart rate response to pharmacologic stress. Symptoms: The patient denied anginal chest pain. EKG: No diagnostic changes of ischemia; no ectopy. FINDINGS: Raw data: There is good myocardial uptake of radiotracer. No significant motion artifacts. Left ventricle function: Gated images demonstrate normal left ventricular wall thickening. No segmental wall motion abnormalities. No transient ischemic dilation; TID is 1.03 (normal less than 1.3). Left ventricle resting end diastolic volume is 93 mL. Left ventricle stress ejection fraction is >75%; normal range is above 45%. Myocardial perfusion: There is normal distribution of activity in the right and left ventricular myocardium. No fixed or reversible perfusion defects. IMPRESSION: Low risk study. No evidence of pharmacologic induced ischemia or scar. LV size with hyperdynamic function. Dictated by: Jody Houser D.O. on 10/03/2024 at 16:37 Approved by: Jody Houser D.O. on 10/03/2024 at 16:39
== END ==
PROVIDERS: Family Provider Family Medicine; PCP Family Medicine; Referring Provider Internal Medicine; Visit Provider Internal Medicine
DX: I65.21 Occlusion and stenosis of right carotid artery (principal)
CPT/HCPCS: 93880

== ENCOUNTER 2024-10-06 14:06 | Emergency (ER) | payer MEDICARE, SELFPAY ==
[2024-10-06 14:16] VITALS: BP 151/70; PULSE 77; RESP 18; TEMP 36.6; O2SAT 98; BMI 20.9
--- NOTE | 2024-10-06 14:21 | DI.RAD.S_ITS ---
PROCEDURE: XR KNEE RT 3V INDICATIONS: swelling/pain/weakness TECHNIQUE: 3 views of the knee were acquired. COMPARISON: [facility], , XR KNEE RT 3V, 10/14/2021, 13:00. FINDINGS: Bones: No fractures or dislocations. Mild osteoarthritic changes. Chronic mildly depressed fracture deformity of the lateral tibial plateau is stable. No suspicious bony lesions. Soft tissues: No joint effusion. No suspicious soft tissue calcifications. IMPRESSION: No acute osseous abnormality. If pain persists with conservative management, consider repeat x-ray in 10-14 days or cross-sectional imaging. Dictated by: Lloyd Allen M.D. on 10/06/2024 at 15:14 Approved by: Lloyd Allen M.D. on 10/06/2024 at 15:15
[2024-10-06 14:47] VITALS: PULSE 78
--- NOTE | 2024-10-06 15:25 | ED.EXTPRO ---
HPI - Extremity Problem <Samra Almeida PA-C - Last Filed: 10/06/24 15:57> General Chief complaint: Extremity Problem,Nontraumatic Stated complaint: knee pain Time Seen by Provider: 10/06/24 14:44 Source: patient Mode of arrival: Wheelchair History of Present Illness HPI Narrative: Ms. Patel is a very pleasant 88-year-old female with a past medical history of hypertension, hypothyroidism, prior right tibial plateau fracture, chronic pain who presents to the emergency department for right knee pain/?giving out on her? while getting out of car prior to arrival. Patient reports she had a very busy day going to many appointments. When she was getting out of her car her right knee ?gave out on her? and is now painful on the anterior/lateral side. She ambulates with a cane, a walker, and occasionally uses a motorized wheelchair. She lives at an assisted living facility. She denies numbness, tingling, wounds, fall. She has taken no pain medication prior to arrival. Related Data Home Medications Medication Instructions Recorded Confirmed aspirin 81 mg tablet,delayed 81 mg PO DAILY 12/15/19 10/06/24 release (Adult Aspirin Regimen) Prevegen 2 tab PO DAILY 01/13/20 10/06/24 coenzyme Q10 200 mg capsule (Co 200 mg PO BID 01/13/20 10/06/24 Q-10) acetaminophen 325 mg tablet 325 mg PO BID PRN 03/18/24 10/06/24 (Tylenol) magnesium 250 mg tablet 250 mg PO DAILY 03/18/24 10/06/24 Previous Rx's Medication Instructions Recorded mecobalamin (vitamin B12) 1,000 1,000 mcg sublingual .every other 03/28/24 mcg disintegrating day #60 tabs tablet,sublingual levothyroxine 100 mcg tablet 100 mcg PO DAILY #90 tabs 05/05/24 chlorthalidone 25 mg tablet 25 mg PO DAILY #90 tabs 05/11/24 lorazepam 0.5 mg tablet (Ativan) 0.5 mg PO BID PRN anxiety #14 tabs 07/09/24 atenolol 50 mg tablet 50 mg PO BID #180 tabs 07/11/24 hydralazine 25 mg tablet See Rx Instructions PO TID #90 tabs 07/18/24 losartan 100 mg tablet 100 mg PO DAILY #90 tabs 07/18/24 ondansetron 4 mg disintegrating 4 mg PO Q8H PRN nausea and 08/11/24 tablet vomiting #60 tabs meloxicam 15 mg tablet 15 mg PO DAILY #30 tabs 08/22/24 Allergies Allergy/AdvReac Type Severity Reaction Status Date / Time Penicillins Allergy Severe Rash Verified 10/06/24 10:01 shellfish derived Allergy Intermediate Rash Verified 10/06/24 10:01 Fish Containing Products Allergy Mild Rash Verified 10/06/24 10:01 latex [LATEX] Allergy Mild WELTS Verified 10/06/24 10:01 morphine [MORPHINE] Allergy Mild WELTS Verified 10/06/24 10:01 Sulfa (Sulfonamide Allergy Mild UNK Verified 10/06/24 10:01 Antibiotics) [SULFA (SULFONAMIDE ANTIBIOTICS)] alendronate sodium Allergy Unknown Verified 10/06/24 10:01 [From FOSAMAX] acetaminophen [From Percocet] AdvReac Intermediate altered Verified 10/06/24 10:01 mental status oxycodone [From Percocet] AdvReac Intermediate altered Verified 10/06/24 10:01 mental status Review of Systems <Samra Almeida PA-C - Last Filed: 10/06/24 15:57> Review of Systems ROS Unobtainable: All systems reviewed & are unremarkable except as noted in HPI and below Patient History <Samra Almeida PA-C - Last Filed: 10/06/24 15:57> Medical History Hiatal hernia Lumbar facet arthropathy Closed T11 fracture Compression fracture of T9 vertebra Pain of both breasts Family history of pancreatitis Thoracic radiculitis Shoulder pain, left Large hiatal hernia Chronic back pain Bilateral hip pain Chronic thoracic spine pain Hypercalcemia Loss of vision Dizziness Rib pain on right side Body posture problem Chest wall pain, chronic Pain of left breast Acute bilateral thoracic back pain Thoracic spine fracture Pulmonary nodule, right Low back pain with bilateral sciatica Generalized pruritus Insomnia Segmental and somatic dysfunction of rib cage Rib pain on left side Leg cramps Cervical somatic dysfunction Cranial somatic dysfunction Stiff neck Vitiligo (~1975) Anxiety Transient ischemic attack (~1997) Kyphosis Scoliosis Osteoporosis Fractures Chronic back pain Polio (~1945) Mumps Measles Chicken pox Macular degeneration (~2000) Hearing loss History of urinary incontinence (~2015) Colon polyps (~1994) Aortic regurgitation Upper extremity somatic dysfunction Segmental and somatic dysfunction of sacral region Pelvic somatic dysfunction Segmental and somatic dysfunction of abdomen and other regions Segmental and somatic dysfunction of thoracic region Segmental and somatic dysfunction of lumbar region Left elbow pain Hypothyroidism (~1982) Rib pain on left side Bilateral leg cramps UTI (urinary tract infection) Surgical History Status post vertebroplasty Anesthesia History of bladder suspension procedure (~1998) History of kyphoplasty (~2002) History of elbow surgery (~08/2015) History of surgery on right wrist (~10/14/19) History of hip replacement (~2004) History of cataract removal with insertion of prosthetic lens (~2014) Family History Father Suicide Mental health problem Mother Pancreatitis Brother No problems noted. Brother No problems noted. Sister Mental health problem Grandmother Senility Social History household members: none Smoking Status: Never smoker alcohol intake: former Smoking Status: Never smoker alcohol intake frequency: 0-2 drinks per day Alcohol type: wine Exam <Samra Almeida PA-C - Last Filed: 10/06/24 15:57> Narrative Exam Narrative: GENERAL: 88 year old patient appears stated age. Well-developed patient, in no acute distress. HEAD: Atraumatic. Normocephalic. EYES: Extraocular motions intact. No scleral icterus. No injection or drainage. ENT: Nose without bleeding, purulent drainage. Throat without erythema, tonsillar hypertrophy or exudate. Airway patent. NECK: Trachea midline. Cervical ROM intact. CARDIOVASCULAR: Regular rate and rhythm. Strong bilateral DP and PT pulses. RESPIRATORY: ?Nonlabored respirations. ?Speaking in clear, full sentences.? EXTREMITIES: Tenderness to palpation of anterior lateral right knee. Full range of motion. No deformities. No overlying skin changes. No tenderness to palpation of femur or ortega. No reproducible joint laxity. BACK: Nontender without deformity or crepitance. No flank tenderness. NEURO: AOx3. ?Clear speech. ?Moves all 4 extremities appropriately. Ambulates with assistance. SKIN: No rash or erythema of visible areas Initial Vital Signs Initial Vital Signs: Vital Signs Temperature 98 F 10/06/24 14:16 Pulse Rate 77 10/06/24 14:16 Respiratory Rate 18 10/06/24 14:16 Blood Pressure 151/70 H 10/06/24 14:16 Pulse Oximetry 98 10/06/24 14:16 Oxygen Delivery Method Room Air 10/06/24 14:16 <DO Marge Biswas Last Filed: 10/06/24 16:07> Initial Vital Signs Initial Vital Signs: Vital Signs Temperature 98 F 10/06/24 14:16 Pulse Rate 77 10/06/24 14:16 Respiratory Rate 18 10/06/24 14:16 Blood Pressure 151/70 H 10/06/24 14:16 Pulse Oximetry 98 10/06/24 14:16 Oxygen Delivery Method Room Air 10/06/24 14:16 Course <Samra Almeida PA-C - Last Filed: 10/06/24 15:57> Orders Ordered: ED Orders 10/06/24 14:21 XR knee RT 3V Stat Discontinued Medications Acetaminophen (Acetaminophen 325 Mg Tablet) 650 mg PO NOW ONE Stop: 10/06/24 15:42 Last Admin: 10/06/24 15:55 Dose: 650 mg Documented By: RB Vital Signs Vital signs: Vital Signs - 8 hr 10/06/24 14:16 10/06/24 14:47 Temperature 98 F Pulse Rate 77 Pulse Rate [Right Dorsalis Pedis] 78 Respiratory Rate 18 Blood Pressure 151/70 H Pulse Oximetry 98 Oxygen Delivery Method Room Air <DO Marge Biswas Last Filed: 10/06/24 16:07> Orders Ordered: ED Orders 10/06/24 14:21 XR knee RT 3V Stat Discontinued Medications Acetaminophen (Acetaminophen 325 Mg Tablet) 650 mg PO NOW ONE Stop: 10/06/24 15:42 Last Admin: 10/06/24 15:55 Dose: 650 mg Documented By: RB Vital Signs Vital signs: Vital Signs - 8 hr 10/06/24 14:16 10/06/24 14:47 Temperature 98 F Pulse Rate 77 Pulse Rate [Right Dorsalis Pedis] 78 Respiratory Rate 18 Blood Pressure 151/70 H Pulse Oximetry 98 Oxygen Delivery Method Room Air MDM - Extremity (Nontraumatic) <LORRI Mcgee Last Filed: 10/06/24 15:57> MDM Narrative Medical decision making narrative: 88-year-old female with a past medical history of hypertension, hypothyroidism, prior right tibial plateau fracture, chronic pain who presents to the emergency department for right knee pain/?giving out on her? while getting out of car prior to arrival. Differential diagnosis includes but is not limited to knee fracture, knee sprain, knee strain, ligament injury, tendon injury, etc. On exam patient is in no acute distress, nontoxic appearing, vital signs within normal limits. She has subjective right knee pain however she does have full range of motion and no reproducible joint laxity however the knee did give out on her earlier today. She ambulates at baseline with a cane or walker, she ambulates in the ER with my assistance. X-ray obtained of the right knee. We will treat with Tylenol. X-ray reveals no acute osseous abnormality. After shared decision-making with the patient, she feels most safe with a right knee immobilizer. Advised follow up with PCP, rice therapy, Tylenol if needed for pain. Patient verbalized understanding of information stable for discharge. Discharge Plan Departure Patient Disposition: Home Clinical Impression: Strain of right knee Qualifiers: Encounter type: initial encounter Qualified Code(s): S86.911A - Strain of unspecified muscle(s) and tendon(s) at lower leg level, right leg, initial encounter Instructions: DI for Knee Pain Activity Restrictions/Additional Instructions: Dear Ms. Patel, Today you were evaluated for your right knee giving out on you. Your x-ray does not show any new fracture or break in the knee. We are treating you with a right knee brace to help support the knee. You may use Tylenol for pain. Please follow up with your primary care doctor for further evaluation of your knee pain. Please use RICE therapy for your pain in addition to ibuprofen/acetaminophen. Rest the painful area. Ice the area of pain/swelling for at least 15 minutes, 4x a day. Compress the area of swelling using a brace, wrap, or splint if applied. Elevate the painful or swollen extremity by supporting it above the level of the heart with pillows when sitting or laying. Please follow up with your primary care doctor within the next 2-3 days for ER follow-up. (If you do not have a PCP you can call [phone]. ?to schedule an appointment with an [facility] Primary Care Provider) IF YOU DEVELOP ANY NEW OR WORSENING SYMPTOMS, RETURN TO THE ER! Please read the attached instructions, they highlight more specific treatments and interventions for you at home. Thank you for letting me participate in your care, Samra Almeida PA-C Prescriptions: No Action coenzyme Q10 [Co Q-10] 200 mg capsule 200 mg PO BID magnesium 250 mg tablet 250 mg PO DAILY acetaminophen [Tylenol] 325 mg tablet 325 mg PO BID PRN mecobalamin (vitamin B12) 1,000 mcg tablet,disintegrating 1,000 mcg sublingual .every other day Qty: 60 3RF Rx Instructions: place tablet under tongue and allow to dissolve for at least30 secs before swallowing levothyroxine 100 mcg tablet 100 mcg PO DAILY Qty: 90 3RF chlorthalidone 25 mg tablet 25 mg PO DAILY Qty: 90 3RF Hold Instructions: Home Medication placed on hold at Doctor's office lorazepam [Ativan] 0.5 mg tablet 0.5 mg PO BID PRN (Reason: anxiety) Qty: 14 1RF atenolol 50 mg tablet 50 mg PO BID Qty: 180 1RF hydralazine 25 mg tablet See Rx Instructions PO TID Qty: 90 2RF Rx Instructions: Take 1/2 tab t.i.d. for 2 days then increase to 1 tab t.i.d. thereafter losartan 100 mg tablet 100 mg PO DAILY Qty: 90 0RF Hold Instructions: Home Medication placed on hold at Doctor's office meloxicam 15 mg tablet 15 mg PO DAILY Qty: 30 1RF aspirin [Adult Aspirin Regimen] 81 mg tablet,delayed release (DR/EC) 81 mg PO DAILY Prevegen 2 tab PO DAILY ondansetron 4 mg tablet,disintegrating 4 mg PO Q8H PRN (Reason: nausea and vomiting) Qty: 60 3RF Referrals: Josias Christine MD [Primary Care Provider] - Stand Alone Forms: Patient Portal/API/Survey ED Sign-out <Carlos Olvera, - Last Filed: 10/06/24 16:07> [facility]: Dr Olvera Co-Sign Statement: I was available for consultation during this patient's emergency department visit. This chart is signed by myself for administrative purposes only. I did not have direct contact with this patient during this visit. They were seen independently by the APC.
[2024-10-06] MEDS: ACETAMINOPHEN 325 MG TABLET 650 MG PO (15:55)
== END 2024-10-06 16:09 | disposition home or self-care (01) ==
PROVIDERS: Emergency Provider Physician Assistant; Family Provider Family Medicine; PCP Family Medicine
DX: S86.911A Strain of unspecified muscle(s) and tendon(s) at lower leg level, right leg, initial encounter (principal); X58.XXXA Exposure to other specified factors, initial encounter; Y93.89 Activity, other specified
CPT/HCPCS: 73562; 99283; 99284

== ENCOUNTER 2024-10-13 10:19 | Emergency (ER) | payer MEDICARE, SELFPAY ==
[2024-10-13] VITALS (10 sets, daily range): BP systolic 195–227; BP diastolic 84–95; PULSE 67–82; RESP 14; TEMP 36.4; O2SAT 96–99; BMI 20.5
--- NOTE | 2024-10-13 10:29 | DI.RAD.S_ITS ---
PROCEDURE: XR HIP W PEL IF DONE LT 2V INDICATIONS: pain after fall TECHNIQUE: AP pelvis with lateral view(s) of the left hip(s). COMPARISON: [facility], CR, XR HIP W PEL IF DONE LIZ 3TO4V, 02/22/2022, 10:15. FINDINGS: Bones: Bilateral total hip arthroplasties. Left hip completely imaged. Right hip prosthesis incompletely imaged. No evidence of hardware failure or loosening. Possible left acetabular fracture. This is not definite.. Pelvic ring appears intact. No suspicious bony lesions. Soft tissues: The visualized bowel gas pattern is normal. No suspicious soft tissue calcifications. IMPRESSION: 1. Remote total left hip arthroplasty. 2. Question subtle left acetabular fracture. Comment: Consider CT pelvis. Dictated by: Aashish Escalante M.D. on 10/13/2024 at 11:42 Approved by: Aashish Escalante M.D. on 10/13/2024 at 11:44
--- NOTE | 2024-10-13 10:29 | DI.RAD.S_ITS ---
PROCEDURE: XR KNEE LT 3V INDICATIONS: pain after fall TECHNIQUE: 3 views of the knee were acquired. COMPARISON: [facility], CR, XR KNEE RT 3V, 10/06/2024, 14:26. FINDINGS: Bones: Diffuse osteopenia. Mild degenerative change. No fractures or dislocations. No suspicious bony lesions. Soft tissues: Small joint effusion. No suspicious soft tissue calcifications. IMPRESSION: The bones are diffusely osteopenic. There is mild degenerative change. No obvious fractures. If clinically continue to suspect acute fracture, consider CT. Dictated by: Aashish Escalante M.D. on 10/13/2024 at 11:44 Approved by: Aashish Escalante M.D. on 10/13/2024 at 11:46
--- NOTE | 2024-10-13 10:29 | DI.RAD.S_ITS ---
PROCEDURE: XR FOOT LT MIN 3V INDICATIONS: pain after fall TECHNIQUE: 3 views of the foot were acquired. COMPARISON: None. FINDINGS: Bones: No fractures or dislocations. Diffuse osteopenia. No suspicious bony lesions. Soft tissues: No tibiotalar joint effusion. Achilles tendon appears normal. IMPRESSION: No acute bony abnormality. Dictated by: Aashish Escalante M.D. on 10/13/2024 at 11:46 Approved by: Aashish Escalante M.D. on 10/13/2024 at 11:47
--- NOTE | 2024-10-13 10:29 | ED.GENADULT ---
HPI - General Adult General Chief complaint: Fall Stated complaint: Mechanical fall Time Seen by Provider: 10/13/24 10:23 Source: patient and EMS Mode of arrival: EMS Limitations: no limitations History of Present Illness HPI narrative: Patient was an 88-year-old female he was not on anticoagulation. Had polio when she was a kid. Has residual left-sided weakness. States that she tripped over her walker today and landed on what she thinks is both of her knees and potentially her left side. Did not hit her head. No upper extremity discomfort. She states she went back to her room and started noticing that her left foot was hurting and then her left knee in her left hip. She did put some cream over the area that she states is numbing the discomfort. No other injuries from the event. Related Data Home Medications Medication Instructions Recorded Confirmed aspirin 81 mg tablet,delayed 81 mg PO DAILY 12/15/19 10/06/24 release (Adult Aspirin Regimen) Prevegen 2 tab PO DAILY 01/13/20 10/06/24 coenzyme Q10 200 mg capsule (Co 200 mg PO BID 01/13/20 10/06/24 Q-10) acetaminophen 325 mg tablet 325 mg PO BID PRN 03/18/24 10/06/24 (Tylenol) magnesium 250 mg tablet 250 mg PO DAILY 03/18/24 10/06/24 carvedilol 25 mg tablet 25 mg PO BID 10/10/24 Previous Rx's Medication Instructions Recorded mecobalamin (vitamin B12) 1,000 1,000 mcg sublingual .every other 03/28/24 mcg disintegrating day #60 tabs tablet,sublingual levothyroxine 100 mcg tablet 100 mcg PO DAILY #90 tabs 05/05/24 chlorthalidone 25 mg tablet 25 mg PO DAILY #90 tabs 05/11/24 lorazepam 0.5 mg tablet (Ativan) 0.5 mg PO BID PRN anxiety #14 tabs 07/09/24 hydralazine 25 mg tablet See Rx Instructions PO TID #90 tabs 07/18/24 losartan 100 mg tablet 100 mg PO DAILY #90 tabs 07/18/24 ondansetron 4 mg disintegrating 4 mg PO Q8H PRN nausea and 08/11/24 tablet vomiting #60 tabs meloxicam 15 mg tablet 15 mg PO DAILY #30 tabs 08/22/24 Allergies Allergy/AdvReac Type Severity Reaction Status Date / Time Penicillins Allergy Severe Rash Verified 10/13/24 10:27 shellfish derived Allergy Intermediate Rash Verified 10/13/24 10:27 Fish Containing Products Allergy Mild Rash Verified 10/13/24 10:27 latex [LATEX] Allergy Mild WELTS Verified 10/13/24 10:27 morphine [MORPHINE] Allergy Mild WELTS Verified 10/13/24 10:27 Sulfa (Sulfonamide Allergy Mild UNK Verified 10/13/24 10:27 Antibiotics) [SULFA (SULFONAMIDE ANTIBIOTICS)] alendronate sodium Allergy Unknown Verified 10/13/24 10:27 [From FOSAMAX] acetaminophen [From Percocet] AdvReac Intermediate altered Verified 10/13/24 10:27 mental status oxycodone [From Percocet] AdvReac Intermediate altered Verified 10/13/24 10:27 mental status Review of Systems Review of Systems Narrative: See HPI Patient History Medical History Hiatal hernia Lumbar facet arthropathy Closed T11 fracture Compression fracture of T9 vertebra Pain of both breasts Family history of pancreatitis Thoracic radiculitis Shoulder pain, left Large hiatal hernia Chronic back pain Bilateral hip pain Chronic thoracic spine pain Hypercalcemia Loss of vision Dizziness Rib pain on right side Body posture problem Chest wall pain, chronic Pain of left breast Acute bilateral thoracic back pain Thoracic spine fracture Pulmonary nodule, right Low back pain with bilateral sciatica Generalized pruritus Insomnia Segmental and somatic dysfunction of rib cage Rib pain on left side Leg cramps Cervical somatic dysfunction Cranial somatic dysfunction Stiff neck Vitiligo (~1975) Anxiety Transient ischemic attack (~1997) Kyphosis Scoliosis Osteoporosis Fractures Chronic back pain Polio (~194) Mumps Measles Chicken pox Macular degeneration (~2000) Hearing loss History of urinary incontinence (~2015) Colon polyps (~1994) Aortic regurgitation Upper extremity somatic dysfunction Segmental and somatic dysfunction of sacral region Pelvic somatic dysfunction Segmental and somatic dysfunction of abdomen and other regions Segmental and somatic dysfunction of thoracic region Segmental and somatic dysfunction of lumbar region Left elbow pain Hypothyroidism (~1982) Rib pain on left side Bilateral leg cramps UTI (urinary tract infection) Surgical History Status post vertebroplasty Anesthesia History of bladder suspension procedure (~1998) History of kyphoplasty (~2002) History of elbow surgery (~08/2015) History of surgery on right wrist (~10/14/19) History of hip replacement (~2004) History of cataract removal with insertion of prosthetic lens (~2014) Family History Father Suicide Mental health problem Mother Pancreatitis Brother No problems noted. Brother No problems noted. Sister Mental health problem Grandmother Senility Social History household members: none Smoking Status: Never smoker alcohol intake: former Smoking Status: Never smoker alcohol intake frequency: 0-2 drinks per day Alcohol type: wine Exam Initial Vital Signs Initial Vital Signs: Vital Signs Temperature 97.6 F 10/13/24 10:20 Pulse Rate 73 10/13/24 10:20 Respiratory Rate 14 10/13/24 10:20 Blood Pressure 203/86 H 10/13/24 10:20 Pulse Oximetry 98 10/13/24 10:20 Oxygen Delivery Method Room Air 10/13/24 10:20 Const General: cooperative, well developed and No ill appearing Cardio Pulses: dorsalis pedis present on the left Skin Other: Superficial bruise anterior aspect of the left knee Neuro Sensory Exam: no sensory deficits noted Extrem Other: Patient has discomfort with palpation of the lateral aspect of the left foot. No ankle pain. Has full range of motion of the left ankle. Can flex and extend at the knee but describes pain throughout the knee. Has discomfort with palpation of the lateral and posterior aspect of the left hip. Can flex and extend and internally and externally rotate. Course Orders Ordered: ED Orders 10/13/24 10:29 XR foot LT min 3V Stat XR hip w pel if done LT 2V Stat XR knee LT 3V Stat 10/13/24 11:55 CT pelvis wo con Stat Acetaminophen (Acetaminophen 325 Mg Tablet) 650 mg PO NOW ONE Stop: 10/13/24 12:41 Vital Signs Vital signs: Vital Signs - 8 hr 10/13/24 10:20 Temperature 97.6 F Pulse Rate 73 Respiratory Rate 14 Blood Pressure 203/86 H Pulse Oximetry 98 Oxygen Delivery Method Room Air Medical Decision Making Imaging Data Extremity x-ray #1: Radiologist's Impression: PROCEDURE: XR KNEE LT 3V INDICATIONS: pain after fall TECHNIQUE: 3 views of the knee were acquired. COMPARISON: [facility], CR, XR KNEE RT 3V, 10/06/2024, 14:26. FINDINGS: Bones: Diffuse osteopenia. Mild degenerative change. No fractures or dislocations. No suspicious bony lesions. Soft tissues: Small joint effusion. No suspicious soft tissue calcifications. IMPRESSION: The bones are diffusely osteopenic. There is mild degenerative change. No obvious fractures. If clinically continue to suspect acute fracture, consider CT. Extremity x-ray #2: Radiologist's Impression: PROCEDURE: XR HIP W PEL IF DONE LT 2V INDICATIONS: pain after fall TECHNIQUE: AP pelvis with lateral view(s) of the left hip(s). COMPARISON: [facility], , XR HIP W PEL IF DONE LIZ 3TO4V, 02/22/2022, 10:15. FINDINGS: Bones: Bilateral total hip arthroplasties. Left hip completely imaged. Right hip prosthesis incompletely imaged. No evidence of hardware failure or loosening. Possible left acetabular fracture. This is not definite.. Pelvic ring appears intact. No suspicious bony lesions. Soft tissues: The visualized bowel gas pattern is normal. No suspicious soft tissue calcifications. IMPRESSION: 1. Remote total left hip arthroplasty. 2. Question subtle left acetabular fracture. Comment: Consider CT pelvis. Extremity x-ray #3: Radiologist's Impression: PROCEDURE: XR FOOT LT MIN 3V INDICATIONS: pain after fall TECHNIQUE: 3 views of the foot were acquired. COMPARISON: None. FINDINGS: Bones: No fractures or dislocations. Diffuse osteopenia. No suspicious bony lesions. Soft tissues: No tibiotalar joint effusion. Achilles tendon appears normal. IMPRESSION: No acute bony abnormality. CT pelvis: Radiologist's Impression: PROCEDURE: CT PEL WO CON INDICATIONS: Possible left acetabular fracture seen on x-ray TECHNIQUE: Noncontrast 3 mm axial sections acquired through the bony pelvis, with coronal and sagittal reformatting. COMPARISON: [facility], , XR HIP W PEL IF DONE LT 2V, 10/13/2024, 10:50. FINDINGS: Image quality: Excellent. Bones: Prior bilateral hip arthroplasty devices. No fracture found. Soft tissues: No hematoma identified. IMPRESSION: No trauma found. Bilateral hip arthroplasty procedures. Source of pain after fall not identified. MDM Narrative Medical decision making narrative: Patient stated that she tripped over her wheelchair. X-rays of her left lower extremity show no acute pathology. Confirmed by CT scan hip. No other injuries from the event. I did discuss all this with the patient. We discussed the use of topical medications that she has been using and that she likes to use plus the use of oral Tylenol. She was given return precautions and follow-up instructions. She expressed understanding and agreement. Discharge Plan Departure Patient Disposition: Home Clinical Impression: Left leg pain Instructions: How to Prevent Falls Activity Restrictions/Additional Instructions: Continue to take all of your medications as directed. You can walk on your left leg despite the discomfort. There were no fractures noted on the imaging studies. Contact your primary doctor for a follow-up. Return to the emergency department for new symptoms. Prescriptions: No Action coenzyme Q10 [Co Q-10] 200 mg capsule 200 mg PO BID magnesium 250 mg tablet 250 mg PO DAILY acetaminophen [Tylenol] 325 mg tablet 325 mg PO BID PRN mecobalamin (vitamin B12) 1,000 mcg tablet,disintegrating 1,000 mcg sublingual .every other day Qty: 60 3RF Rx Instructions: place tablet under tongue and allow to dissolve for at least30 secs before swallowing levothyroxine 100 mcg tablet 100 mcg PO DAILY Qty: 90 3RF chlorthalidone 25 mg tablet 25 mg PO DAILY Qty: 90 3RF Hold Instructions: Home Medication placed on hold at Doctor's office lorazepam [Ativan] 0.5 mg tablet 0.5 mg PO BID PRN (Reason: anxiety) Qty: 14 1RF hydralazine 25 mg tablet See Rx Instructions PO TID Qty: 90 2RF Rx Instructions: Take 1/2 tab t.i.d. for 2 days then increase to 1 tab t.i.d. thereafter losartan 100 mg tablet 100 mg PO DAILY Qty: 90 0RF Hold Instructions: Home Medication placed on hold at Doctor's office meloxicam 15 mg tablet 15 mg PO DAILY Qty: 30 1RF carvedilol 25 mg tablet 25 mg PO BID Rx Instructions: must administer with a meal/food aspirin [Adult Aspirin Regimen] 81 mg tablet,delayed release (DR/EC) 81 mg PO DAILY Prevegen 2 tab PO DAILY ondansetron 4 mg tablet,disintegrating 4 mg PO Q8H PRN (Reason: nausea and vomiting) Qty: 60 3RF Referrals: Josias Christine MD [Primary Care Provider] - Stand Alone Forms: Patient Portal/API/Survey
--- NOTE | 2024-10-13 11:55 | DI.CT.S_ITS ---
PROCEDURE: CT PEL WO CON INDICATIONS: Possible left acetabular fracture seen on x-ray TECHNIQUE: Noncontrast 3 mm axial sections acquired through the bony pelvis, with coronal and sagittal reformatting. COMPARISON: [facility], CR, XR HIP W PEL IF DONE LT 2V, 10/13/2024, 10:50. FINDINGS: Image quality: Excellent. Bones: Prior bilateral hip arthroplasty devices. No fracture found. Soft tissues: No hematoma identified. IMPRESSION: No trauma found. Bilateral hip arthroplasty procedures. Source of pain after fall not identified. Dictated by: Tomas Peterson M.D. on 10/13/2024 at 12:28 Approved by: Tomas Peterson M.D. on 10/13/2024 at 12:30
[2024-10-13] MEDS: ACETAMINOPHEN 325 MG TABLET 650 MG PO (12:55)
== END 2024-10-13 13:27 | disposition home or self-care (01) ==
PROVIDERS: Emergency Provider Emergency Medicine; Family Provider Family Medicine; PCP Family Medicine
DX: M79.672 Pain in left foot (principal); M25.562 Pain in left knee; M25.552 Pain in left hip
CPT/HCPCS: 72192; 73502; 73562; 73630; 99283; 99284

== ENCOUNTER 2024-10-18 20:51 | Emergency (ER) | payer MEDICARE, SELFPAY ==
[2024-10-18 21:04] VITALS: BP 177/80; PULSE 69; RESP 16; TEMP 36.4; O2SAT 99; BMI 20.5
[2024-10-18 22:33] VITALS: BP 219/95; PULSE 66; O2SAT 96
[2024-10-18 22:39] VITALS: BP 192/83; PULSE 66; O2SAT 98
[2024-10-18 23:00] VITALS: PULSE 66; RESP 18; O2SAT 97
--- NOTE | 2024-10-18 23:01 | ED.LOWEXIN ---
HPI - Extremity Injury (Lower) General Chief Complaint: Extremity Injury, Lower Stated Complaint: fall last week, big painful bruiise Time Seen by Provider: 10/18/24 22:29 Source: patient Mode of arrival: Wheelchair History of Present Illness HPI Narrative: 88-year-old female presents requesting evaluation of a large bruise on her left leg. Patient was seen 5 days ago after a ground level trip and fall. She states that she injured her left knee but had negative x-rays. A few days later she noticed a large dark spot pop up on her inner left thigh. She was concerned because she was never seen this before and she wants the area evaluated. She was ambulatory at her baseline. History of polio, has chronic left leg weakness compared to her right leg. Related Data Home Medications Medication Instructions Recorded Confirmed aspirin 81 mg tablet,delayed 81 mg PO DAILY 12/15/19 10/06/24 release (Adult Aspirin Regimen) Prevegen 2 tab PO DAILY 01/13/20 10/06/24 coenzyme Q10 200 mg capsule (Co 200 mg PO BID 01/13/20 10/06/24 Q-10) acetaminophen 325 mg tablet 325 mg PO BID PRN 03/18/24 10/06/24 (Tylenol) magnesium 250 mg tablet 250 mg PO DAILY 03/18/24 10/06/24 carvedilol 25 mg tablet 25 mg PO BID 10/10/24 Previous Rx's Medication Instructions Recorded mecobalamin (vitamin B12) 1,000 1,000 mcg sublingual .every other 03/28/24 mcg disintegrating day #60 tabs tablet,sublingual levothyroxine 100 mcg tablet 100 mcg PO DAILY #90 tabs 05/05/24 chlorthalidone 25 mg tablet 25 mg PO DAILY #90 tabs 05/11/24 lorazepam 0.5 mg tablet (Ativan) 0.5 mg PO BID PRN anxiety #14 tabs 07/09/24 hydralazine 25 mg tablet See Rx Instructions PO TID #90 tabs 07/18/24 losartan 100 mg tablet 100 mg PO DAILY #90 tabs 07/18/24 ondansetron 4 mg disintegrating 4 mg PO Q8H PRN nausea and 08/11/24 tablet vomiting #60 tabs meloxicam 15 mg tablet 15 mg PO DAILY #30 tabs 08/22/24 Allergies Allergy/AdvReac Type Severity Reaction Status Date / Time Penicillins Allergy Severe Rash Verified 10/13/24 10:27 shellfish derived Allergy Intermediate Rash Verified 10/13/24 10:27 Fish Containing Products Allergy Mild Rash Verified 10/13/24 10:27 latex [LATEX] Allergy Mild WELTS Verified 10/13/24 10:27 morphine [MORPHINE] Allergy Mild WELTS Verified 10/13/24 10:27 Sulfa (Sulfonamide Allergy Mild UNK Verified 10/13/24 10:27 Antibiotics) [SULFA (SULFONAMIDE ANTIBIOTICS)] alendronate sodium Allergy Unknown Verified 10/13/24 10:27 [From FOSAMAX] acetaminophen [From Percocet] AdvReac Intermediate altered Verified 10/13/24 10:27 mental status oxycodone [From Percocet] AdvReac Intermediate altered Verified 10/13/24 10:27 mental status Patient History Medical History Hiatal hernia Lumbar facet arthropathy Closed T11 fracture Compression fracture of T9 vertebra Pain of both breasts Family history of pancreatitis Thoracic radiculitis Shoulder pain, left Large hiatal hernia Chronic back pain Bilateral hip pain Chronic thoracic spine pain Hypercalcemia Loss of vision Dizziness Rib pain on right side Body posture problem Chest wall pain, chronic Pain of left breast Acute bilateral thoracic back pain Thoracic spine fracture Pulmonary nodule, right Low back pain with bilateral sciatica Generalized pruritus Insomnia Segmental and somatic dysfunction of rib cage Rib pain on left side Leg cramps Cervical somatic dysfunction Cranial somatic dysfunction Stiff neck Vitiligo (~1975) Anxiety Transient ischemic attack (~1997) Kyphosis Scoliosis Osteoporosis Fractures Chronic back pain Polio (~1945) Mumps Measles Chicken pox Macular degeneration (~2000) Hearing loss History of urinary incontinence (~2015) Colon polyps (~1994) Aortic regurgitation Upper extremity somatic dysfunction Segmental and somatic dysfunction of sacral region Pelvic somatic dysfunction Segmental and somatic dysfunction of abdomen and other regions Segmental and somatic dysfunction of thoracic region Segmental and somatic dysfunction of lumbar region Left elbow pain Hypothyroidism (~1982) Rib pain on left side Bilateral leg cramps UTI (urinary tract infection) Surgical History Status post vertebroplasty Anesthesia History of bladder suspension procedure (~1998) History of kyphoplasty (~2002) History of elbow surgery (~08/2015) History of surgery on right wrist (~10/14/19) History of hip replacement (~2004) History of cataract removal with insertion of prosthetic lens (~2014) Family History Father Suicide Mental health problem Mother Pancreatitis Brother No problems noted. Brother No problems noted. Sister Mental health problem Grandmother Senility Social History household members: none Smoking Status: Never smoker alcohol intake: former Smoking Status: Never smoker alcohol intake frequency: 0-2 drinks per day Alcohol type: wine Exam Initial Vital Signs Initial Vital Signs: Vital Signs Temperature 97.5 F L 10/18/24 21:04 Pulse Rate 69 10/18/24 21:04 Respiratory Rate 16 10/18/24 21:04 Blood Pressure 177/80 H 10/18/24 21:04 Pulse Oximetry 99 10/18/24 21:04 Oxygen Delivery Method Room Air 10/18/24 21:04 Const: Awake, alert, no acute distress, nontoxic appearing MSK: Atraumatic, full range of motion, pulses equal Skin: ecchymosis in stages of healing inner L thigh. No excessive warmth, no fluctuance, no palpable cord Neuro: AO x3, CN II-XII grossly intact, moves all extremities Course Vital Signs Vital signs: Vital Signs - 8 hr 10/18/24 21:04 Temperature 97.5 F L Pulse Rate 69 Respiratory Rate 16 Blood Pressure 177/80 H Pulse Oximetry 99 Oxygen Delivery Method Room Air MDM - Extremity Injury (Lower) MDM Narrative Medical decision making narrative: Well-appearing patient with what appears to be dependent traumatic ecchymosis, likely from her fall several days ago. It is nontender to palpation, there is yellowing skin discoloration that indicates it is in the stages of healing. Patient reassured by explanation of findings. She was counseled to continue to put ice on it as needed if she experiences discomfort. Routine PCP follow up advised. Discharge Plan Departure Patient Disposition: Home Clinical Impression: Traumatic ecchymosis of left thigh Instructions: DI for Hematoma (Bruise) Activity Restrictions/Additional Instructions: Your exam today looks good. It appears as though you have a healing bruise on your left leg. Continue to put ice on it as needed. On your exam today it looks as though your body is already starting to dissolve the bruise Prescriptions: No Action coenzyme Q10 [Co Q-10] 200 mg capsule 200 mg PO BID magnesium 250 mg tablet 250 mg PO DAILY acetaminophen [Tylenol] 325 mg tablet 325 mg PO BID PRN mecobalamin (vitamin B12) 1,000 mcg tablet,disintegrating 1,000 mcg sublingual .every other day Qty: 60 3RF Rx Instructions: place tablet under tongue and allow to dissolve for at least30 secs before swallowing levothyroxine 100 mcg tablet 100 mcg PO DAILY Qty: 90 3RF chlorthalidone 25 mg tablet 25 mg PO DAILY Qty: 90 3RF Hold Instructions: Home Medication placed on hold at Doctor's office lorazepam [Ativan] 0.5 mg tablet 0.5 mg PO BID PRN (Reason: anxiety) Qty: 14 1RF hydralazine 25 mg tablet See Rx Instructions PO TID Qty: 90 2RF Rx Instructions: Take 1/2 tab t.i.d. for 2 days then increase to 1 tab t.i.d. thereafter losartan 100 mg tablet 100 mg PO DAILY Qty: 90 0RF Hold Instructions: Home Medication placed on hold at Doctor's office meloxicam 15 mg tablet 15 mg PO DAILY Qty: 30 1RF carvedilol 25 mg tablet 25 mg PO BID Rx Instructions: must administer with a meal/food aspirin [Adult Aspirin Regimen] 81 mg tablet,delayed release (DR/EC) 81 mg PO DAILY Prevegen 2 tab PO DAILY ondansetron 4 mg tablet,disintegrating 4 mg PO Q8H PRN (Reason: nausea and vomiting) Qty: 60 3RF Referrals: Josias Christine MD [Primary Care Provider] - Stand Alone Forms: Patient Portal/API/Survey
== END 2024-10-18 23:08 | disposition home or self-care (01) ==
PROVIDERS: Emergency Provider Emergency Medicine; Family Provider Family Medicine; PCP Family Medicine
DX: S70.12XA Contusion of left thigh, initial encounter (principal); W01.0XXA Fall on same level from slipping, tripping and stumbling without subsequent striking against object, initial encounter
CPT/HCPCS: 99281

== ENCOUNTER → 2024-10-27 11:05 | Outpatient (CLI) | payer MEDICARE, SELFPAY ==
--- NOTE | 2024-10-27 11:06 | DI.CT.S_ITS ---
PROCEDURE: CT KNEE LEFT WITHOUT CON INDICATIONS: persistent left knee and tibia pain TECHNIQUE: Noncontrast 1-1.5 mm axial sections acquired from the mid-patella to the proximal tibia, with coronal and sagittal reformats. COMPARISON: [facility], CR, XR KNEE LT 3V, 10/13/2024, 10:50. FINDINGS: Image quality: Excellent. Bones: Severe osseous demineralization. Acute-subacute, minimally depressed cleavage-type fracture of the lateral tibial plateau without significant articular surface disruption (77; ) Joints: Small joint effusion. Minimal tricompartmental osteoarthritis. Medial and lateral compartment chondrocalcinosis. Muscles: Overall muscle bulk is preserved. Tendons: Quadriceps and patellar tendon contours are preserved. Vessels: Mild vascular calcifications without aneurysmal dilatation. Lymph nodes: No popliteal lymphadenopathy. Other soft tissues: Mild infrapatellar subcutaneous edema () IMPRESSION: Acute-subacute Schatzker type I lateral tibial plateau fracture without significant articular surface depression. Please note that given the severe osteopenia, additional fractures may be possible that are occult on CT. Dictated by: Michel Rhodes M.D. on 10/27/2024 at 15:31 Approved by: Michel Rhodes M.D. on 10/27/2024 at 15:40
== END ==
PROVIDERS: Family Provider Family Medicine; PCP Family Medicine; Referring Provider Family Medicine; Visit Provider Family Medicine
DX: S82.142A Displaced bicondylar fracture of left tibia, initial encounter for closed fracture (principal); S70.12XA Contusion of left thigh, initial encounter; M25.462 Effusion, left knee; M11.262 Other chondrocalcinosis, left knee; M79.605 Pain in left leg; M25.562 Pain in left knee; X58.XXXA Exposure to other specified factors, initial encounter
CPT/HCPCS: 73700